=== PATIENT | female | born 1955 | race Caucasian/White ===

== ENCOUNTER → 2016-07-14 | Outpatient (CLI) | payer MEDICARE, OTHER | LOC: RAD 08:25 | PROVIDERS: ATTEND Internal Medicine | DX: M48.06 Spinal stenosis, lumbar region (principal) | CPT/HCPCS: 72148 ==

== ENCOUNTER 2016-07-25 08:40 | Emergency (ER) | payer MEDICARE ==
[2016-07-25] MEDS ORDERED: NITROGLYCERIN 0.4 MG/TAB 25 TAB/BOTTLE ONE (08:56)
[2016-07-25] MEDS ORDERED: ONDANSETRON HCL INJ/PF 4 MG/2 ML SDV IV ONE (09:00)
--- NOTE | 2016-07-25 09:01 | ER Document Report ---
ED Cardiac - General Stated Complaint: CHEST PRESSURE Mode of Arrival: Medic Information source: Patient Notes: Patient presents complaining of chest pain that started around 7 AM today while she was standing in the classroom. Patient states that she became clammy, dizzy , nauseated and had shortness of breath. Patient was given nitroglycerin per EMS and the chest pain improved some. Patient only took 1 nitroglycerin sublingually as she was concerned as she was not currently at the hospital. Patient does state she has a history of coronary artery disease and was advised that she needed a CABG procedure but she declined last year due to scheduling conflict with taking care of her grandchildren. TRAVEL OUTSIDE OF THE [place] IN LAST 30 DAYS: No - HPI Patient complains to provider of: Chest pain, Shortness of breath Was the onset of pain: Sudden Chest pain location: Substernal Quality of pain: Sharp Pain level currently: 2 Cardiac risk factors: Smoker, Dyslipidemia. denies: Hypertension Positive cardiac history: Yes Associated symptoms: Diaphoresis, Dizziness, Nausea/vomiting, Shortness of breath. 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 denies: Fever EENT: No symptoms reported Cardiovascular: Chest pain, Dyspnea, Dizziness Respiratory: Cough - Chronic cough, Short of breath Gastrointestinal: Nausea. denies: Vomiting Genitourinary: No symptoms reported Female Genitourinary: No symptoms reported Musculoskeletal: No symptoms reported. denies: Back pain Skin: No symptoms reported Hematologic/Lymphatic: No symptoms reported Neurological/Psychological: No symptoms reported Physical Exam - Vital signs Vitals: Temp Pulse Ox 98.7 F 98 07/25/16 08:45 07/25/16 08:45 - General General appearance: Appears well, Alert In distress: None - HEENT Head: Normocephalic, Atraumatic Eyes: Normal Conjunctiva: Normal Nasal: Normal Mouth/Lips: Normal Mucous membranes: Normal Neck: Normal, Supple. No: Lymphadenopathy - Respiratory Respiratory status: No respiratory distress Chest status: Nontender Breath sounds: Nonproductive cough Chest palpation: Normal. No: Tender - Cardiovascular Rhythm: Regular Heart sounds: S1 appreciated, S2 appreciated Murmur: No - Abdominal Inspection: Normal Distension: No distension Bowel sounds: Normal Tenderness: Tender - Epigastric tenderness to palpation Organomegaly: No organomegaly - Back Back: Normal, Nontender. No: CVA tenderness - Extremities General upper extremity: Normal inspection, Normal strength General lower extremity: Normal inspection, Normal strength - Neurological Neuro grossly intact: Yes Cognition: Normal Addie Coma Scale Eye Opening: Spontaneous Addie Coma Scale Verbal: Oriented Addie Coma Scale Motor: Obeys Commands [place] Coma Scale Total: 15 - Psychological Associated symptoms: Normal affect, Normal mood - Skin Skin Temperature: Warm Skin Moisture: Dry Skin Color: Normal Course - Re-evaluation Re-evalutation: 07/25/16 09:39 Patient reports that chest pain has completely resolved after nitroglycerin. 07/25/16 09:[address] 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 Does not recommend a glycerin at this time as her pain is currently resolved. 07/25/16 10:36 Call placed to [facility] transfer center 07/25/16 11:[address] Hudson at [facility] who agrees to accept patient to Dr. Jose L Kamara services, recommends cycling cardiac enzymes every 6 hours along with EKG, recommends notifying transfer center if patient has a return of her chest pain or symptoms worsen. 07/25/16 11:55 Dr Chavez to bedside for examination, patient's vital signs stable, patient stable for transfer. 07/25/16 12:38 Patient tearful, worried about who is going to take care of her grandchildren while she is in the hospital. Patient requesting medication to help with her nerves. Vital signs stable, patient does agree with plan for transfer at this time. Patient does have her friend who is a daycare provider who is willing to care for her grandchildren she is in the hospital. - Vital Signs Vital signs: Temp Pulse Resp BP Pulse Ox 97.7 F 14 177/66 H 97 07/25/16 12:40 07/25/16 12:31 07/25/16 12:31 07/25/16 12:31 - Laboratory Result Diagrams: 07/25/16 09:15 07/25/16 09:15 Laboratory results interpreted by me: 07/25/16 07/25/16 09:15 09:15 WBC 11.1 H Seg Neutrophils % 81.8 H Absolute Neutrophils 9.1 H Carbon Dioxide 21 L Glucose 153 H Creatine Kinase 247 H Labs- Entire Visit 07/25/16 07/25/16 07/25/16 09:15 09:15 09:15 WBC 11.1 H RBC 4.52 Hgb 13.8 Hct 41.3 MCV 92 MCH 30.5 MCHC 33.4 RDW 12.9 Plt Count 247 Seg Neutrophils % 81.8 H Lymphocytes % 13.3 Monocytes % 4.0 Eosinophils % 0.4 Basophils % 0.5 Absolute Neutrophils 9.1 H Absolute Lymphocytes 1.5 Absolute Monocytes 0.4 Absolute Eosinophils 0.0 Absolute Basophils 0.1 PT 13.1 INR 0.96 APTT 27.8 Sodium 141.4 Potassium 3.9 Chloride 105 Carbon Dioxide 21 L Anion Gap 15 BUN 12 Creatinine 0.64 Est GFR ( Amer) > 60 Est GFR (Non-Af Amer) > 60 Glucose 153 H Calcium 9.4 Magnesium 1.9 Total Bilirubin 0.6 Direct Bilirubin 0.0 AST 22 ALT 27 Alkaline Phosphatase 91 Creatine Kinase 247 H CK-MB (CK-2) Troponin I Total Protein 7.2 Albumin 4.2 Lipase 115.7 Urine Color Urine Appearance Urine pH Ur Specific [place] Urine Protein Urine Glucose (UA) Urine Ketones Urine Blood Urine Nitrite Urine Bilirubin Urine Urobilinogen Ur Leukocyte Esterase Urine WBC (Auto) Urine RBC (Auto) Urine Mucus (Auto) Urine Ascorbic Acid 07/25/16 07/25/16 09:15 10:20 WBC RBC Hgb Hct MCV MCH MCHC RDW Plt Count Seg Neutrophils % Lymphocytes % Monocytes % Eosinophils % Basophils % Absolute Neutrophils Absolute Lymphocytes Absolute Monocytes Absolute Eosinophils Absolute Basophils PT INR APTT Sodium Potassium Chloride Carbon Dioxide Anion Gap BUN Creatinine Est GFR ( Amer) Est GFR (Non-Af Amer) Glucose Calcium Magnesium Total Bilirubin Direct Bilirubin AST ALT Alkaline Phosphatase Creatine Kinase CK-MB (CK-2) 3.01 Troponin I < 0.012 Total Protein Albumin Lipase Urine Color YELLOW Urine Appearance CLEAR Urine pH 7.0 Ur Specific [place] 1.006 Urine Protein NEGATIVE Urine Glucose (UA) NEGATIVE Urine Ketones NEGATIVE Urine Blood NEGATIVE Urine Nitrite NEGATIVE Urine Bilirubin NEGATIVE Urine Urobilinogen NEGATIVE Ur Leukocyte Esterase NEGATIVE Urine WBC (Auto) 1 Urine RBC (Auto) 1 Urine Mucus (Auto) RARE Urine Ascorbic Acid NEGATIVE 07/25/16 14:44 - Diagnostic Test Radiology reviewed: Reports reviewed Discharge - Discharge Clinical Impression: Hx of coronary artery disease Chest pain Qualifiers: Chest pain type: unspecified Qualified Code(s): R07.9 - Chest pain, unspecified Condition: Stable Disposition: [facility] Referrals: OSBALDO HOBSON MD [Primary Care Provider] - Follow up as needed
[2016-07-25] MEDS ORDERED: NITROGLYCERIN 0.4 MG/TAB 25 TAB/BOTTLE SL PRN (09:02)
[2016-07-25 09:50] LABS: ABSOLUTE BASOPHILS # (AUTO) 0.1 10^3/uL (0.0-0.2); ABSOLUTE LYMPHOCYTES (AUTO) 1.5 10^3/uL (0.5-4.7); ABSOLUTE MONOCYTES (AUTO) 0.4 10^3/uL (0.1-1.4); ABSOLUTE NEUT (AUTO) 9.1 10^3/uL (1.7-8.2); BASOPHILS % (AUTO) 0.5 % (0-2); EOSINOPHILS % (AUTO) 0.4 % (0-6); HEMATOCRIT 41.3 % (36.0-47.0); HEMOGLOBIN 13.8 g/dL (12.0-15.5); HGB HCT DIFFERENCE 0.1; LYMPHOCYTES % (AUTO) 13.3 % (13-45); MEAN CORPUSCULAR HEMOGLOBIN 30.5 pg (27.0-33.4); MEAN CORPUSCULAR HGB CONC 33.4 g/dL (32.0-36.0); MEAN CORPUSCULAR VOLUME 92 fl (80-97); RED BLOOD COUNT 4.52 10^6/uL (3.72-5.28); RED CELL DISTRIBUTION WIDTH 12.9 % (11.5-14.0); SEGMENTED NEUTROPHILS % (AUTO) 81.8 % (42-78); WHITE BLOOD COUNT 11.1 10^3/uL (4.0-10.5)
[2016-07-25 09:58] LABS: PARTIAL THROMBOPLASTIN TIME 27.8 SEC (23.5-35.8); PROTHROMBIN TIME 13.1 SEC (11.4-15.4)
[2016-07-25 10:16] LABS: ALANINE AMINOTRANSFERASE 27 U/L (9-52); ALBUMIN 4.2 g/dL (3.5-5.0); ALKALINE PHOSPHATASE 91 U/L (38-126); ANION GAP 15 (5-19); ASPARTATE AMINO TRANSFERASE 22 U/L (14-36); BILIRUBIN,TOTAL 0.6 mg/dL (0.2-1.3); BLOOD UREA NITROGEN 12 mg/dL (7-20); CALCIUM 9.4 mg/dL (8.4-10.2); CARBON DIOXIDE 21 mmol/L (22-30); CHLORIDE 105 mmol/L (98-107); CREATINE KINASE 247 U/L (30-135); CREATININE RESULT 0.64 mg/dL (0.52-1.25); GLUCOSE 153 mg/dL (75-110); LIPASE 115.7 U/L (23-300); MAGNESIUM 1.9 mg/dL (1.6-2.3); POTASSIUM 3.9 mmol/L (3.6-5.0); SODIUM 141.4 mmol/L (137-145); TOTAL PROTEIN 7.2 g/dL (6.3-8.2)
[2016-07-25 10:26] LABS: CREATINE KINASE MB 3.01 ng/mL (<4.55)
[2016-07-25 10:27] LABS: TROPONIN I < 0.012 ng/mL
[2016-07-25 10:49] LABS: APPEARANCE,URINE CLEAR; BILIRUBIN,URINE NEGATIVE (NEGATIVE); GLUCOSE, URINE NEGATIVE (NEGATIVE); KETONES,URINE NEGATIVE (NEGATIVE); LEUKOCYTE ESTERASE,URINE NEGATIVE (NEGATIVE); NITRITE,URINE NEGATIVE (NEGATIVE); PROTEIN,URINE NEGATIVE (NEGATIVE); URINE SPECIFIC GRAVITY 1.006; UROBILINOGEN,URINE NEGATIVE mg/dL (<2.0)
[2016-07-25] MEDS ORDERED: LORAZEPAM INJ 2 MG/1 ML VIAL IV ONE (12:38)
[2016-07-25] MEDS ORDERED: LORAZEPAM INJ 2 MG/1 ML VIAL ONE (12:41)
--- NOTE | 2016-07-25 12:50 | EKG REPORT ---
SEVERITY:- ABNORMAL ECG - SINUS RHYTHM MULTIPLE ATRIAL PREMATURE COMPLEXES PROBABLE LEFT ATRIAL ABNORMALITY : Confirmed by: Chris Dang MD 25-Jul-2016 12:49:20
[2016-07-25 13:18] VITALS: BP 177/66
== END 2016-07-25 12:40 | disposition short-term general hospital (02) ==
LOC: ER 08:40
DX: R07.9 Chest pain, unspecified (principal); R42 Dizziness and giddiness; R11.0 Nausea; R06.02 Shortness of breath; F17.210 Nicotine dependence, cigarettes, uncomplicated; I25.10 Atherosclerotic heart disease of native coronary artery without angina pectoris
CPT/HCPCS: 93005; 99285; 96374; 96375; 36415; 82553; 82550; 83690; 83735; 85025; 85610; 85730; 80053; 81001; 84484; 71020; 93010; J2060; J2405

== ENCOUNTER 2017-03-29 12:38 | Inpatient (IN) | payer MEDICARE ==
[2017-03-29] MEDS ORDERED: NORMAL SALINE 1000 ML 1,000 ML IV ONE ×2 (12:53→16:23)
--- NOTE | 2017-03-29 12:53 | ER Document Report ---
ED Cardiac - General Stated Complaint: CHEST PAIN Time Seen by Provider: 03/29/17 12:46 Mode of Arrival: Medic Information source: Patient Notes: 61 yo non dm, htn, smoker, CAD, COPD, chronic back pain (surgery), radha. femoral stents for PVD, female c/o vomiting and diarrhea since thursday night at 1730 with epigastric and lower midline intermittent retrosternal chest pain that lasts 3-4 minutes each episode, (onset of chest pain after vomiting started) . Generalized muscle cramping. No fever. Some cough. Breathing fast since earlier today. She states she was sent to [facility] July [id number] from our emergency department due to chest pain (2 sets of negative troponin's). She thinks she might of had a heart attack but she does not remember if they did any intervention. She denies stent and cardiac catheterization. PCP: Dr. Hobson. TRAVEL OUTSIDE OF THE [place] IN LAST 30 DAYS: No - Related Data Allergies/Adverse Reactions: morphine Adverse Reaction (Severe, Verified 07/25/16 09:28) Hypotension oxycodone [From Percocet] Adverse Reaction (Intermediate, Verified 07/25/16 09: 28) Nausea acetaminophen [From Percocet] Adverse Reaction (Verified 07/25/16 09:27) Past Medical History - General Information source: Patient - Social History Smoking Status: Current Every Day Smoker Frequency of alcohol use: None Drug Abuse: None Lives with: Family Family History: Reviewed & Not Pertinent - Past Medical History Cardiac Medical History: Reports: Hx Coronary Artery Disease, Hx Hypercholesterolemia Pulmonary Medical History: Reports: Hx COPD Musculoskeltal Medical History: Reports Hx Arthritis Psychiatric Medical History: Reports: Hx Anxiety, Hx Depression Past Surgical History: Reports: Hx Orthopedic Surgery, Hx Vascular Surgery - B Femoral stents, Other - Stents in her right large 20 - Immunizations Hx Diphtheria, Pertussis, Tetanus Vaccination: Yes Review of Systems - Review of Systems Constitutional: See HPI EENT: No symptoms reported Cardiovascular: See HPI Respiratory: No symptoms reported Gastrointestinal: See HPI Genitourinary: No symptoms reported Female Genitourinary: No symptoms reported Musculoskeletal: No symptoms reported Skin: No symptoms reported Hematologic/Lymphatic: No symptoms reported Neurological/Psychological: No symptoms reported Physical Exam - Vital signs Vitals: Temp Pulse Resp BP Pulse Ox 98 F 105 H 17 117/78 99 03/29/17 12:40 03/29/17 12:40 03/29/17 12:40 03/29/17 12:40 03/29/17 12:40 Interpretation: Normal - General General appearance: Alert, Anxious Notes: anxious - HEENT Head: Normocephalic, Atraumatic Eyes: Normal Conjunctiva: Normal Pupils: PERRL Mucous membranes: Normal Pharynx: Normal Neck: Supple. No: Lymphadenopathy - Respiratory Respiratory status: No respiratory distress Chest status: Nontender Breath sounds: Normal Chest palpation: Normal - Cardiovascular Rhythm: Regular Heart sounds: Normal auscultation Murmur: No - Abdominal Inspection: Normal Distension: No distension Bowel sounds: Normal Tenderness: Tender - epigastrum Organomegaly: No organomegaly - Back Back: Normal, Nontender. No: CVA tenderness - Extremities General upper extremity: Normal inspection, Nontender, Normal color, Normal ROM , Normal temperature General lower extremity: Normal inspection, Nontender, Normal color, Normal ROM , Normal temperature, Normal weight bearing. No: Js's sign - Neurological Neuro grossly intact: Yes Cognition: Normal Orientation: AAOx4 [place] Coma Scale Eye Opening: Spontaneous Addie Coma Scale Verbal: Oriented [place] Coma Scale Motor: Obeys Commands Addie Coma Scale Total: 15 Speech: Normal Motor strength normal: LUE, RUE, LLE, RLE Sensory: Normal - Psychological Associated symptoms: Normal affect, Normal mood - Skin Skin Temperature: Warm Skin Moisture: Dry Skin Color: Normal Skin irregularity: negative: Rash Course - Re-evaluation Re-evalutation: 03/29/17 14:35 Chemistry hemolyzed he had to redraw it. She was not given aspirin so I have ordered that. She still has some nausea so have ordered 8 mg Zofran ODT. Heart rate is now 90. Her original EKG showed atrial tachycardia rate 106 with inverted P wave in 2 3 aVF which was not there and a previous EKG July 2016. I will have him redo an EKG at this time. AP chest x-ray is negative. 03/29/17 14:41 Creatinine is 1.81, BUN is 37. She has never had elevated BUN or creatinine that she is aware of. 03/29/17 16:[address] Devries who recommends admitting the patient for chest pain rule out rehydration since she has acute renal insufficiency. I called Dr. Cordoba who agrees to admit the patient to telemetry to Dr. Hobson's service . - Vital Signs Vital signs: Temp Pulse Resp BP Pulse Ox 98 F 105 H 17 143/46 H 99 03/29/17 12:40 03/29/17 12:40 03/29/17 16:01 03/29/17 16:01 03/29/17 16:01 - Laboratory Result Diagrams: 03/29/17 13:10 03/29/17 13:55 Laboratory results interpreted by me: 03/29/17 03/29/17 13:10 13:55 WBC 18.6 H Hgb 16.1 H Seg Neutrophils % 85.5 H Lymphocytes % 9.1 L Absolute Neutrophils 15.9 H BUN 37 H Creatinine 1.81 H Est GFR ( Amer) 34 L Est GFR (Non-Af Amer) 28 L Glucose 118 H Direct Bilirubin 0.5 H Discharge - Discharge Clinical Impression: Vomiting and diarrhea, epigastric abdominal pain, chest pain, Acute renal insufficiency, Dehydration, hypertension COPD (chronic obstructive pulmonary disease) Qualifiers: COPD type: unspecified COPD Qualified Code(s): J44.9 - Chronic obstructive pulmonary disease, unspecified Condition: Good Disposition: ADMITTED OBSERVATION Admitting Provider: Marty Unit Admitted: Telemetry Referrals: OSBALDO HOBSON MD [Primary Care Provider] - Follow up as needed
--- NOTE | 2017-03-29 13:37 | RADIOLOGY REPORT (SQ) ---
EXAM DESCRIPTION: CHEST SINGLE VIEW COMPLETED DATE/TIME: 03/29/2017 1:07 pm REASON FOR STUDY: t1 cp COMPARISON: 07/25/2016 EXAM PARAMETERS: NUMBER OF VIEWS: One view. TECHNIQUE: Single frontal radiographic view of the chest acquired. RADIATION DOSE: NA LIMITATIONS: None. FINDINGS: LUNGS AND PLEURA: No opacities, masses or pneumothorax. No pleural effusion. MEDIASTINUM AND HILAR STRUCTURES: No masses. Contour normal. HEART AND VASCULAR STRUCTURES: Heart normal in size. Normal vasculature. BONES: No acute findings. HARDWARE: None in the chest. OTHER: No other significant finding. IMPRESSION: NO ACUTE RADIOGRAPHIC FINDING IN THE CHEST. TECHNICAL DOCUMENTATION: JOB ID: [id number] [employer]- All Rights Reserved
[2017-03-29 13:44] LABS: ABSOLUTE BASOPHILS # (AUTO) 0.1 10^3/uL (0.0-0.2); ABSOLUTE LYMPHOCYTES (AUTO) 1.7 10^3/uL (0.5-4.7); ABSOLUTE MONOCYTES (AUTO) 0.9 10^3/uL (0.1-1.4); ABSOLUTE NEUT (AUTO) 15.9 10^3/uL (1.7-8.2); BASOPHILS % (AUTO) 0.3 % (0-2); EOSINOPHILS % (AUTO) 0.1 % (0-6); HEMATOCRIT 45.8 % (36.0-47.0); HEMOGLOBIN 16.1 g/dL (12.0-15.5); HGB HCT DIFFERENCE 2.5; LYMPHOCYTES % (AUTO) 9.1 % (13-45); MEAN CORPUSCULAR HEMOGLOBIN 31.2 pg (27.0-33.4); MEAN CORPUSCULAR HGB CONC 35.1 g/dL (32.0-36.0); MEAN CORPUSCULAR VOLUME 89 fl (80-97); RED BLOOD COUNT 5.15 10^6/uL (3.72-5.28); RED CELL DISTRIBUTION WIDTH 12.6 % (11.5-14.0); SEGMENTED NEUTROPHILS % (AUTO) 85.5 % (42-78); WHITE BLOOD COUNT 18.6 10^3/uL (4.0-10.5)
[2017-03-29] MEDS ORDERED: NORMAL SALINE 1000 ML 500 ML IV ONE (14:32)
[2017-03-29 14:33] LABS: ALANINE AMINOTRANSFERASE 23 U/L (9-52); ALBUMIN 4.3 g/dL (3.5-5.0); ALKALINE PHOSPHATASE 114 U/L (38-126); ANION GAP 16 (5-19); ASPARTATE AMINO TRANSFERASE 24 U/L (14-36); BILIRUBIN,DIRECT 0.5 mg/dL (0.0-0.4); BILIRUBIN,TOTAL 0.8 mg/dL (0.2-1.3); BLOOD UREA NITROGEN 37 mg/dL (7-20); CALCIUM 9.2 mg/dL (8.4-10.2); CARBON DIOXIDE 23 mmol/L (22-30); CHLORIDE 99 mmol/L (98-107); CREATINE KINASE 132 U/L (30-135); CREATININE RESULT 1.81 mg/dL (0.52-1.25); GLUCOSE 118 mg/dL (75-110); LIPASE 133.7 U/L (23-300); MAGNESIUM 2.1 mg/dL (1.6-2.3); POTASSIUM 4.4 mmol/L (3.6-5.0); SODIUM 137.5 mmol/L (137-145); TOTAL PROTEIN 7.3 g/dL (6.3-8.2)
[2017-03-29] MEDS ORDERED: ASPIRIN 81 MG TABLET, CHEWABLE PO ONE (14:33)
[2017-03-29] MEDS ORDERED: ONDANSETRON 4 MG TAB.RAPDIS PO ONE (14:33)
[2017-03-29 14:51] LABS: CREATINE KINASE MB 2.28 ng/mL (<4.55)
--- NOTE | 2017-03-29 14:59 | EKG REPORT ---
SEVERITY:- ABNORMAL ECG - ECTOPIC ATRIAL TACHYCARDIA : Confirmed by: Gail Singh 29-Mar-2017 14:58:40
[2017-03-29 15:02] LABS: TROPONIN I 0.046 ng/mL
[2017-03-29] MEDS ORDERED: MAG HYDROX/AL HYDROX/SIMETH SUSP 30 ML UDCUP PO ONE (16:23)
[2017-03-29] MEDS ORDERED: LIDOCAINE 2% VISCOUS SOLN 20 ML UDCUP PO ONE (16:23)
[2017-03-29] MEDS ORDERED: LANSOPRAZOLE 30 MG TAB.RAP.DR PO ONE (16:23)
[2017-03-29] MEDS ORDERED: INFLUENZA ADLT QUAD (36MOS+) 2017-18 VAC 0.5 ML SYR IM PRN (18:28)
[2017-03-29 19:20] LABS: AMORPHOUS SEDIMENT,URINE TRACE /HPF; APPEARANCE,URINE CLOUDY; BILIRUBIN,URINE NEGATIVE (NEGATIVE); GLUCOSE, URINE NEGATIVE (NEGATIVE); KETONES,URINE TRACE mg/dL (NEGATIVE); LEUKOCYTE ESTERASE,URINE TRACE (NEGATIVE); NITRITE,URINE NEGATIVE (NEGATIVE); PROTEIN,URINE 100 mg/dL (NEGATIVE)
[2017-03-29 19:24] LABS: URINE BARBITURATES SCREEN NEGATIVE; URINE METHADONE SCREEN NEGATIVE; URINE PHENCYCLIDINE SCREEN NEGATIVE
[2017-03-29 19:29] LABS: URINE OPIATES LOW UNCONFIRMED POSITIVE
[2017-03-29] MEDS ORDERED: NORMAL SALINE 1000 ML 1,000 ML IV PRN (19:29)
--- NOTE | 2017-03-29 19:57 | EKG REPORT ---
SEVERITY:- ABNORMAL ECG - SINUS TACHYCARDIA LOW VOLTAGE IN FRONTAL LEADS CONSIDER ANTEROSEPTAL INFARCT NONSPECIFIC T ABNORMALITIES, LATERAL LEADS BORDERLINE PROLONGED QT INTERVAL APCs : Confirmed by: Gail Singh 29-Mar-2017 19:55:35
[2017-03-29 20:47] LABS: CREATINE KINASE MB 2.59 ng/mL (<4.55)
[2017-03-29 20:55] LABS: TROPONIN I 0.059 ng/mL
[2017-03-29] MEDS: CIPROFLOXACIN HCL 500 MG TABLET PO SCH (21:17)
[2017-03-29] MEDS: BUPROPION HCL 75 MG TABLET PO SCH (21:17)
[2017-03-29] MEDS: BUSPIRONE HCL 10 MG TABLET PO SCH (21:18)
[2017-03-29] MEDS: TRAZODONE HCL 50 MG TABLET PO SCH (21:18)
[2017-03-29] MEDS: LISINOPRIL 10 MG TABLET PO SCH (21:18)
[2017-03-29] MEDS: GABAPENTIN 400 MG CAPSULE PO SCH (21:18)
[2017-03-29] MEDS: HYDROCHLOROTHIAZIDE 12.5 MG CAPSULE PO SCH (21:20)
[2017-03-30 03:02] LABS: CREATINE KINASE MB 2.84 ng/mL (<4.55); TROPONIN I 0.039 ng/mL
[2017-03-30] MEDS: GABAPENTIN 400 MG CAPSULE PO SCH ×3 (05:35→21:34)
[2017-03-30 09:41] LABS: ABSOLUTE LYMPHOCYTES (AUTO) 2.8 10^3/uL (0.5-4.7); ABSOLUTE MONOCYTES (AUTO) 0.8 10^3/uL (0.1-1.4); ABSOLUTE NEUT (AUTO) 6.7 10^3/uL (1.7-8.2); BASOPHILS % (AUTO) 0.4 % (0-2); EOSINOPHILS % (AUTO) 0.3 % (0-6); HEMATOCRIT 37.8 % (36.0-47.0); HGB HCT DIFFERENCE 2.1; LYMPHOCYTES % (AUTO) 27.3 % (13-45); MEAN CORPUSCULAR HEMOGLOBIN 31.6 pg (27.0-33.4); MEAN CORPUSCULAR HGB CONC 35.3 g/dL (32.0-36.0); MEAN CORPUSCULAR VOLUME 89 fl (80-97); MONOCYTES % (AUTO) 7.6 % (3-13); RED BLOOD COUNT 4.22 10^6/uL (3.72-5.28); RED CELL DISTRIBUTION WIDTH 12.6 % (11.5-14.0); SEGMENTED NEUTROPHILS % (AUTO) 64.4 % (42-78); WHITE BLOOD COUNT 10.3 10^3/uL (4.0-10.5)
[2017-03-30 09:43] LABS: HEMOGLOBIN 13.3 g/dL (12.0-15.5)
[2017-03-30] MEDS: HYDROCHLOROTHIAZIDE 12.5 MG CAPSULE PO SCH ×2 (09:47→21:35)
[2017-03-30] MEDS: LISINOPRIL 10 MG TABLET PO SCH ×2 (09:48→21:35)
[2017-03-30] MEDS: BUPROPION HCL 75 MG TABLET PO SCH ×2 (09:51→21:34)
[2017-03-30] MEDS: FLUTICASONE NASAL SPRAY 50 MCG/SPRY 120 SPRAY/16 GM NASL SCH (09:51)
[2017-03-30] MEDS: MELOXICAM 7.5 MG TABLET PO SCH (09:51)
[2017-03-30] MEDS: BUSPIRONE HCL 10 MG TABLET PO SCH ×2 (09:51→21:34)
[2017-03-30] MEDS: CIPROFLOXACIN HCL 500 MG TABLET PO SCH ×2 (09:51→21:35)
[2017-03-30] MEDS ORDERED: LANSOPRAZOLE 30 MG TAB.RAP.DR PO SCH (10:00)
[2017-03-30] MEDS ORDERED: (PENDING PHARMACY ID) (Lisinopril/Hydrochlorothiazide [Lisinopril-Hctz 20-12.5 Mg Tab] 1 E PO SCH (10:00)
[2017-03-30] MEDS ORDERED: (PENDING PHARMACY ID) (Gabapentin [Gabapentin] 800 MG) PO SCH (10:00)
[2017-03-30] MEDS ORDERED: [UNRECOGNIZED DRUG - REMARK] NASL SCH (10:00)
[2017-03-30] MEDS ORDERED: BUSPIRONE HCL PO SCH (10:00)
[2017-03-30 10:01] LABS: ANION GAP 15 (5-19); BLOOD UREA NITROGEN 27 mg/dL (7-20); CALCIUM 8.8 mg/dL (8.4-10.2); CARBON DIOXIDE 20 mmol/L (22-30); CHLORIDE 104 mmol/L (98-107); CREATINE KINASE 846 U/L (30-135); CREATININE RESULT 1.05 mg/dL (0.52-1.25); GLUCOSE 119 mg/dL (75-110); POTASSIUM 3.7 mmol/L (3.6-5.0); SODIUM 139.4 mmol/L (137-145)
[2017-03-30 10:18] LABS: CREATINE KINASE MB 2.44 ng/mL (<4.55); TROPONIN I 0.017 ng/mL
[2017-03-30] MEDS ORDERED: CLOPIDOGREL BISULFATE 75 MG TABLET PO ONE (11:00)
[2017-03-30] MEDS ORDERED: INFLUENZA ADLT QUAD (36MOS+) 2017-18 VAC 0.5 ML SYR IM PRN (11:00)
--- NOTE | 2017-03-30 20:48 | PDOC H&P ---
History of Present Illness Admission Date/PCP: 03/29/17 18:37 OSBALDO HOBSON MD History of Present Illness: MYRTLE THAPA is a 61 year old female, She has a history of chronic obstructive pulmonary disease, tobacco abuse, she came to the emergency room for evaluation of abdominal pain, diarrhea, vomiting also chest pain. She continued to smoke cigarettes, she was seen on the floor, she has abdominal distention associated with abdominal pain. She denies passage of black tarry stool, there is no hematochezia, there is no vomiting blood. A CAT scan of the abdomen and pelvis with IV contrast was done for evaluation of the abdominal distention, it showed fluid distended loops of small bowel with transition point deep within the pelvis with collapsed loops distally compatible with obstruction. The CAT scan suggest mechanical obstruction probably due to adhesions, nasogastric tube be inserted and consultation from surgery to be ordered Past Medical History Cardiac Medical History: Reports: Coronary Artery Disease, Hyperlipidema Pulmonary Medical History: Reports: Chronic Obstructive Pulmonary Disease (COPD) Musculoskeltal Medical History: Reports: Arthritis Psychiatric Medical History: Reports: Depression Past Surgical History Past Surgical History: Reports: Orthopedic Surgery, Vascular Surgery - B Femoral stents, Other - Stents in her right large 20 Social History Lives with: Family Smoking Status: Current Every Day Smoker Cigarettes Packs Per Day: 1 Frequency of Alcohol Use: None Hx Recreational Drug Use: No Drugs: None Hx Prescription Drug Abuse: No - Advance Directive Resuscitation Status: Full Code Family History Family History: Reviewed & Not Pertinent Parental Family History Reviewed: Yes Children Family History Reviewed: Yes Sibling(s) Family History Reviewed.: Yes Medication/Allergy Home Medications: Acetaminophen with Codeine [Acetaminophen-Cod #4 Tablet] 1 tab PO Q8H PRN Bupropion HCl [Bupropion HCl Sr] 150 mg PO BID 03/29/17 Buspirone HCl [Buspar 30 mg Tablet] 1 tab PO BID 03/29/17 Ciprofloxacin HCl [Cipro 500 mg Tablet] 500 mg PO BID 03/29/17 Fluticasone Propionate [Flonase Allergy Relief] 2 sprays NASL DAILY 03/29/17 Gabapentin 800 mg PO TID 03/29/17 Lisinopril/Hydrochlorothiazide [Lisinopril-Hctz 20-12.5 mg Tab] 1 each PO BID Meloxicam 7.5 mg PO DAILY 03/29/17 Omeprazole 20 mg PO DAILY 03/29/17 Trazodone HCl 100 mg PO QHS 03/29/17 Allergies/Adverse Reactions: morphine Adverse Reaction (Severe, Verified 07/25/16 09:28) Hypotension oxycodone [From Percocet] Adverse Reaction (Intermediate, Verified 07/25/16 09: 28) Nausea Review of Systems Constitutional: PRESENT: anorexia Eyes: ABSENT: visual disturbances Ears: ABSENT: hearing changes Cardiovascular: ABSENT: chest pain, dyspnea on exertion, edema, orthropnea, palpitations Respiratory: ABSENT: cough, hemoptysis Gastrointestinal: PRESENT: abdominal pain, diarrhea, vomiting Genitourinary: ABSENT: dysuria, hematuria Musculoskeletal: ABSENT: joint swelling Integumentary: ABSENT: rash, wounds Neurological: ABSENT: abnormal gait, abnormal speech, confusion, dizziness, focal weakness, syncope Psychiatric: ABSENT: anxiety, depression, homidical ideation, suicidal ideation Endocrine: ABSENT: cold intolerance, heat intolerance, menstrual abnormalities, polydipsia, polyuria Hematologic/Lymphatic: ABSENT: easy bleeding, easy bruising, lymphadenopathy Physical Exam Vital Signs: Temp Pulse Resp BP Pulse Ox 98.1 F 64 20 133/47 H 100 03/30/17 15:33 03/30/17 15:33 03/30/17 15:33 03/30/17 15:33 03/30/17 15:33 Intake & Output 03/29/17 03/30/17 03/31/17 06:59 06:59 06:59 Intake Total 1218 2580 Balance 1218 2580 Weight 75.3 kg General appearance: PRESENT: no acute distress, well-developed, well-nourished Head exam: PRESENT: atraumatic, normocephalic Eye exam: PRESENT: conjunctiva pink, EOMI, PERRLA Ear exam: PRESENT: normal external ear exam Mouth exam: PRESENT: moist, tongue midline Neck exam: PRESENT: full ROM Respiratory exam: PRESENT: clear to auscultation radha Cardiovascular exam: PRESENT: RRR, +S1, +S2 Pulses: PRESENT: normal dorsalis pedis pul, +2 pedal pulses bilateral Vascular exam: PRESENT: normal capillary refill GI/Abdominal exam: PRESENT: distended, normal bowel sounds, soft Rectal exam: PRESENT: deferred Neurological exam: PRESENT: alert, awake, oriented to person, oriented to place , oriented to time, oriented to situation, CN II-XII grossly intact. ABSENT: motor sensory deficit Psychiatric exam: PRESENT: appropriate affect, normal mood Skin exam: PRESENT: dry, intact, warm Results Laboratory Results: 03/30/17 09:26 03/30/17 09:26 03/30/17 03/30/17 09:26 09:26 WBC 10.3 RBC 4.22 Hgb 13.3 D Hct 37.8 MCV 89 MCH 31.6 MCHC 35.3 RDW 12.6 Plt Count 298 Seg Neutrophils % 64.4 Lymphocytes % 27.3 Monocytes % 7.6 Eosinophils % 0.3 Basophils % 0.4 Absolute Neutrophils 6.7 Absolute Lymphocytes 2.8 Absolute Monocytes 0.8 Absolute Eosinophils 0.0 Absolute Basophils 0.0 Sodium 139.4 Potassium 3.7 Chloride 104 Carbon Dioxide 20 L Anion Gap 15 BUN 27 H Creatinine 1.05 Est GFR ( Amer) > 60 Est GFR (Non-Af Amer) 53 L Glucose 119 H Calcium 8.8 03/29/17 03/29/17 03/30/17 20:00 20:00 02:00 Creatine Kinase 196 H 441 H CK-MB (CK-2) 2.59 Troponin I 0.059 03/30/17 03/30/17 03/30/17 02:00 09:26 09:26 Creatine Kinase 846 H CK-MB (CK-2) 2.84 2.44 Troponin I 0.039 0.017 Impressions: Chest X-Ray 03/29/17 12:40 IMPRESSION: NO ACUTE RADIOGRAPHIC FINDING IN THE CHEST. Assessment & Plan - Diagnosis (1) Small bowel obstruction due to adhesions Is this a current diagnosis for this admission?: Yes Plan: Patient admitted for evaluation of small bowel obstruction, CT scan consistent with mechanical obstruction, nasogastric tube to be inserted, keep n.p.o. (2) Chronic obstructive pulmonary disease Qualifiers: COPD type: unspecified COPD Qualified Code(s): J44.9 - Chronic obstructive pulmonary disease, unspecified Is this a current diagnosis for this admission?: Yes (3) Hypertension Qualifiers: Hypertension type: essential hypertension Qualified Code(s): I10 - Essential (primary) hypertension
--- NOTE | 2017-03-30 21:28 | RADIOLOGY REPORT (SQ) ---
EXAM DESCRIPTION: CT ABD/PELVIS WITH IV ONLY COMPLETED DATE/TIME: 03/30/2017 9:13 pm REASON FOR STUDY: abdominal distension/pain R10.84 GENERALIZED ABDOMINAL PAIN COMPARISON: None. TECHNIQUE: CT scan of the abdomen and pelvis performed using helical scanning technique with dynamic intravenous contrast injection. No oral contrast. Images reviewed with lung, soft tissue, and bone windows. Reconstructed coronal and sagittal MPR images reviewed. Delayed images for evaluation of the urinary system also acquired. All images stored on PACS. All CT scanners at this facility use dose modulation, iterative reconstruction, and/or weight based d osing when appropriate to reduce radiation dose to as low as reasonably achievable (ALARA). [facility]: Dose Right [facility]: CareDose [facility]: Dose Right [facility]: Teradose 4D [facility]: Hantele CONTRAST TYPE AND DOSE: contrast/concentration: Isovue 370.00 mg/ml; Total Contrast Delivered: 81.0 ml; Total Saline Delivered: 42.0 ml RENAL FUNCTION: Creatinine measures 1.05 RADIATION DOSE: Up-to-date CT equipment and radiation dose reduction techniques were employed. CTDIv ol: 14.5 - 18.4 mGy. DLP: 1729 mGy-cm.. LIMITATIONS: None. FINDINGS: LOWER CHEST: No significant findings. No nodules or infiltrates. LIVER: Normal size. No masses. No dilated ducts. SPLEEN: Normal size. No focal lesions. PANCREAS: No masses. No significant calcifications. No adjacent inflammation or peripancreatic fluid collections. Pancreatic duct not dilated. GALLBLADDER: Surgically absent. ADRENAL GLANDS: No significant masses or asymmetry. RIGHT KIDNEY AND URETER: No solid masses. No significant calcifications. No hydronephrosis or hyd roureter. LEFT KIDNEY AND URETER: No solid masses. No significant calcifications. No hydronephrosis or hydr oureter. AORTA AND VESSELS: No aneurysm. No dissection. Renal arteries, SMA, celiac without stenosis. RETROPERITONEUM: No retroperitoneal adenopathy, hemorrhage or masses. BOWEL AND PERITONEAL CAVITY: Fluid distended loops of small bowel measuring up to 3.3 cm with transit ion point deep within the pelvis with collapsed loops distally compatible with obstruction. No pneum atosis or free air. APPENDIX: Not visualized. PELVIS: No mass. No free fluid. Normal bladder. ABDOMINAL WALL: No masses. No hernias. BONES: Status post posterior interbody fusion of the L4-L5 levels. No hardware complication. No fra cture or suspicious osseous lesion. OTHER: No other significant finding. IMPRESSION: CT FINDINGS COMPATIBLE WITH DISTAL SMALL BOWEL OBSTRUCTION WITH TRANSITION POINT SOMEWHA T DEEP IN THE PELVIS PRESUMABLY SECONDARY TO ADHESIONS GIVEN PRIOR SURGERIES. NO PNEUMATOSIS OR FREE AIR. ADDITIONAL CHRONIC CHANGES ABOVE. TECHNICAL DOCUMENTATION: JOB ID: [id number] Quality ID # [id number]: Final reports with documentation of one or more dose reduction techniques (e.g., Au tomated exposure control, adjustment of the mA and/or kV according to patient size, use of iterative reconstruction technique) 2010 [email or web address]- All Rights Reserved
[2017-03-30] MEDS: TRAZODONE HCL 50 MG TABLET PO SCH (21:35)
[2017-03-31] MEDS: ONDANSETRON HCL INJ/PF 4 MG/2 ML SDV IV PRN ×2 (02:42→21:16)
[2017-03-31] MEDS ORDERED: PHARMACY COMMUNICATION ORDER MC NR (02:45)
[2017-03-31] MEDS ORDERED: DEXTROSE 40% GEL 15 GM TUBE PO PRN ×2 (02:48)
[2017-03-31] MEDS ORDERED: GLUCAGON,HUMAN RECOMB 1 MG INJ SUBCUT PRN (02:48)
[2017-03-31] MEDS ORDERED: DEXTROSE 50%-WATER 25 GM/50 ML DISP.SYRIN IV PRN ×2 (02:48)
[2017-03-31] MEDS: GABAPENTIN 400 MG CAPSULE PO SCH ×2 (05:21→13:30)
--- NOTE | 2017-03-31 08:33 | Physician Advisory Note ---
Physician Advisor ProgressNote .: Pursuant to the plan for [facility], I have reviewed the medical record for this patient. Physician Advisor Statement: Please consider documenting, if you agree: 1. Impression & Plan in H&P, including clinical reasons the pt still needed to stay in hospital 11/6 PM (had already stayed 1st MN 03/29 in ED). - Ex: "Pt with continued abd pain & distention", "unresolved SBO", " worsening trop I's", "evidence of continued volume depletion with associated acute metabolic acidosis", ... - Each day needs medical necessity documented for that night in hospital. 2. "Chest pain, likely due to " ["unstable angina w/documented spasm"? "acute ischemic heart dz"? referred pain from SBO? ...] 3. "distal small bowel obstruction" 4. "ARF, suspect due to intravascular volume depletion, now resolved" STatus: [facility] pt, has stayed 2 medically necessary MNs in hospital with ongoing need for IVF & SBO tx, monitoring lytes, .... Apprpriate to change to Inpatient status. Thanks! CK
[2017-03-31] MEDS ORDERED: LIDOCAINE 2% JELLY 5 ML TUBE ONE (09:08)
[2017-03-31] MEDS ORDERED: LIDOCAINE 0.5% INJ-PF (5 MG/ML) 50 ML SDV ONE (09:08)
--- NOTE | 2017-03-31 09:56 | PDOC CONSULTATION ---
Consultation Consult Date: 03/31/17 History of Present Illness Admission Date/PCP: 03/29/17 18:37 OSBALDO HOBSON MD History of Present Illness: This a 61-year-old female admitted to the hospitalist medicine service with a four-day history of nausea vomiting and abdominal pain. She was admitted with a small bowel obstruction. CT scan done yesterday confirmed findings of dilated small bowel with a transition point in the distal small bowel. There is no pneumatosis. There is no free air. Small bowel loops were 3.5-4 cm in diameter. She reports to me that she threw up this morning. She also reports that she has had loose stools over the past several days. She reports 3 loose stools yesterday. She says she passed a small amount of flatus today. The nurses attempted to place an NG tube but could not get an NG tube in place. She has a prior history of hysterectomy in 1998. She has had a prior laparoscopic cholecystectomy but no other abdominal surgeries. She has not had a prior small bowel obstruction Past Medical History Cardiac Medical History: Reports: Coronary Artery Disease, Hyperlipidema Pulmonary Medical History: Reports: Chronic Obstructive Pulmonary Disease (COPD) Musculoskeltal Medical History: Reports: Arthritis Psychiatric Medical History: Reports: Depression Past Surgical History Past Surgical History: Reports: Orthopedic Surgery, Vascular Surgery - B Femoral stents, Other - Stents in her right large 20 Social History Lives with: Family Smoking Status: Current Every Day Smoker Cigarettes Packs Per Day: 1 Frequency of Alcohol Use: None Hx Recreational Drug Use: No Drugs: None Hx Prescription Drug Abuse: No - Advance Directive Resuscitation Status: Full Code Family History Family History: Reviewed & Not Pertinent Parental Family History Reviewed: Yes Children Family History Reviewed: Yes Sibling(s) Family History Reviewed.: Yes Medication/Allergy Home Medications: Acetaminophen with Codeine [Acetaminophen-Cod #4 Tablet] 1 tab PO Q8H PRN Bupropion HCl [Bupropion HCl Sr] 150 mg PO BID 03/29/17 Buspirone HCl [Buspar 30 mg Tablet] 1 tab PO BID 03/29/17 Ciprofloxacin HCl [Cipro 500 mg Tablet] 500 mg PO BID 03/29/17 Fluticasone Propionate [Flonase Allergy Relief] 2 sprays NASL DAILY 03/29/17 Gabapentin 800 mg PO TID 03/29/17 Lisinopril/Hydrochlorothiazide [Lisinopril-Hctz 20-12.5 mg Tab] 1 each PO BID Meloxicam 7.5 mg PO DAILY 03/29/17 Omeprazole 20 mg PO DAILY 03/29/17 Trazodone HCl 100 mg PO QHS 03/29/17 Allergies/Adverse Reactions: morphine Adverse Reaction (Severe, Verified 07/25/16 09:28) Hypotension oxycodone [From Percocet] Adverse Reaction (Intermediate, Verified 07/25/16 09: 28) Nausea Physical Exam Vital Signs: Temp Pulse Resp BP Pulse Ox 98.3 F 79 16 139/52 H 100 03/31/17 03:52 03/31/17 03:52 03/31/17 03:52 03/31/17 03:52 03/31/17 03:52 Intake & Output 03/30/17 03/31/17 04/01/17 06:59 06:59 06:59 Intake Total 1218 4280 Balance 1218 4280 Weight 75.3 kg 77.4 kg General appearance: PRESENT: no acute distress Eye exam: PRESENT: EOMI, PERRLA Ear exam: PRESENT: normal external ear exam Mouth exam: PRESENT: dry mucosa Respiratory exam: PRESENT: clear to auscultation radha Cardiovascular exam: PRESENT: RRR Vascular exam: ABSENT: normal capillary refill, pallor, other GI/Abdominal exam: PRESENT: distended, soft, other - Mild diffuse tenderness without localizing signs Rectal exam: PRESENT: deferred Extremities exam: PRESENT: full ROM Psychiatric exam: PRESENT: normal mood Results Laboratory Results: 03/30/17 09:26 03/30/17 09:26 03/30/17 03/30/17 09:26 09:26 WBC 10.3 RBC 4.22 Hgb 13.3 D Hct 37.8 MCV 89 MCH 31.6 MCHC 35.3 RDW 12.6 Plt Count 298 Seg Neutrophils % 64.4 Lymphocytes % 27.3 Monocytes % 7.6 Eosinophils % 0.3 Basophils % 0.4 Absolute Neutrophils 6.7 Absolute Lymphocytes 2.8 Absolute Monocytes 0.8 Absolute Eosinophils 0.0 Absolute Basophils 0.0 Sodium 139.4 Potassium 3.7 Chloride 104 Carbon Dioxide 20 L Anion Gap 15 BUN 27 H Creatinine 1.05 Est GFR ( Amer) > 60 Est GFR (Non-Af Amer) 53 L Glucose 119 H Calcium 8.8 03/29/17 03/29/17 03/30/17 20:00 20:00 02:00 Creatine Kinase 196 H 441 H CK-MB (CK-2) 2.59 Troponin I 0.059 03/30/17 03/30/17 03/30/17 02:00 09:26 09:26 Creatine Kinase 846 H CK-MB (CK-2) 2.84 2.44 Troponin I 0.039 0.017 Impressions: Chest X-Ray 03/29/17 12:40 IMPRESSION: NO ACUTE RADIOGRAPHIC FINDING IN THE CHEST. Abdomen/Pelvis CT 03/30/17 00:00 IMPRESSION: CT FINDINGS COMPATIBLE WITH DISTAL SMALL BOWEL OBSTRUCTION WITH TRANSITION POINT SOMEWHAT DEEP IN THE PELVIS PRESUMABLY SECONDARY TO ADHESIONS GIVEN PRIOR SURGERIES. NO PNEUMATOSIS OR FREE AIR. ADDITIONAL CHRONIC CHANGES ABOVE. Assessment & Plan - Diagnosis (1) Small bowel obstruction Is this a current diagnosis for this admission?: Yes Plan: I have placed an NG tube at the bedside. This resulted in rapid return of 400- 500 cc of thick fluid from the stomach. I would recommend continuation of NG tube decompression. Repeat laboratory studies and KUB in the morning. Continue with IV fluids we will follow with the hospitalist medicine service. - Time Time Spent: 50 to 70 Minutes
[2017-03-31] MEDS ORDERED: HYDROCHLOROTHIAZIDE 12.5 MG CAPSULE NG SCH (10:00)
[2017-03-31] MEDS ORDERED: BUSPIRONE HCL 10 MG TABLET NG SCH (10:00)
[2017-03-31] MEDS ORDERED: BUPROPION HCL 75 MG TABLET NG SCH (10:00)
[2017-03-31] MEDS ORDERED: CLOPIDOGREL BISULFATE 75 MG TABLET PO SCH (10:00)
[2017-03-31] MEDS ORDERED: CIPROFLOXACIN HCL 500 MG TABLET NG SCH (10:00)
[2017-03-31] MEDS ORDERED: LISINOPRIL 10 MG TABLET NG SCH (10:00)
[2017-03-31] MEDS ORDERED: LANSOPRAZOLE 30 MG TAB.RAP.DR NG SCH (10:00)
--- NOTE | 2017-03-31 13:11 | RADIOLOGY REPORT (SQ) ---
EXAM DESCRIPTION: KUB/ABDOMEN (SINGLE VIEW) COMPLETED DATE/TIME: 03/31/2017 11:16 am REASON FOR STUDY: Check Placement of NG Tube R10.84 GENERALIZED ABDOMINAL PAIN COMPARISON: CT abdomen pelvis 03/30/2017 NUMBER OF VIEWS: One view. TECHNIQUE: Upright portable film of the abdomen for nasogastric tube placement LIMITATIONS: Pelvis cropped from the field of view FINDINGS: Minimal bibasilar atelectasis. Persistent air-fluid levels in colon small bowel and stomach. There is a nasogastric tube with the tip in the stomach and side port at the GE junction. Pelvis cropped from the field of view IMPRESSION: Nasogastric tube tip and side port in the stomach. TECHNICAL DOCUMENTATION: JOB ID: [id number] [email or web address]- All Rights Reserved
[2017-03-31] MEDS: CIPROFLOXACIN HCL 500 MG TABLET PO SCH (13:29)
[2017-03-31] MEDS: LANSOPRAZOLE 30 MG TAB.RAP.DR PO SCH (13:29)
[2017-03-31] MEDS: HYDROCHLOROTHIAZIDE 12.5 MG CAPSULE PO SCH (13:29)
[2017-03-31] MEDS: BUPROPION HCL 75 MG TABLET PO SCH (13:29)
[2017-03-31] MEDS: FLUTICASONE NASAL SPRAY 50 MCG/SPRY 120 SPRAY/16 GM NASL SCH (13:29)
[2017-03-31] MEDS: BUSPIRONE HCL 10 MG TABLET PO SCH (13:29)
[2017-03-31] MEDS: LISINOPRIL 10 MG TABLET PO SCH (13:29)
[2017-03-31] MEDS: MELOXICAM 7.5 MG TABLET PO SCH (13:29)
[2017-03-31] MEDS: NORMAL SALINE 1000 ML 1,000 ML IV PRN (14:13)
[2017-03-31] MEDS ORDERED: PHENOL/SODIUM PHENOLATE 100 SPRAY/177 ML BOTTLE PO PRN (15:21)
--- NOTE | 2017-03-31 18:05 | PDOC PROGRESS REPORT ---
Subjective Progress Note for:: 03/31/17 Subjective:: She has mechanical obstruction, small bowel obstruction, she had NG tube in place but she pulled it, she refused to have the NG tube reinserted Physical Exam Vital Signs: Temp Pulse Resp BP Pulse Ox 98.2 F 97 16 134/51 H 95 03/31/17 11:52 03/31/17 15:26 03/31/17 15:26 03/31/17 15:26 03/31/17 15:26 Eye exam: PRESENT: PERRLA Ear exam: PRESENT: normal external ear exam Neck exam: PRESENT: full ROM Respiratory exam: PRESENT: clear to auscultation radha Cardiovascular exam: PRESENT: RRR, +S1, +S2 Vascular exam: PRESENT: normal capillary refill GI/Abdominal exam: PRESENT: normal bowel sounds, soft Rectal exam: PRESENT: deferred Neurological exam: PRESENT: alert Psychiatric exam: PRESENT: appropriate affect, normal mood Skin exam: PRESENT: dry, intact, warm Results Impressions: Chest X-Ray 03/29/17 12:40 IMPRESSION: NO ACUTE RADIOGRAPHIC FINDING IN THE CHEST. Abdomen/Pelvis CT 03/30/17 00:00 IMPRESSION: CT FINDINGS COMPATIBLE WITH DISTAL SMALL BOWEL OBSTRUCTION WITH TRANSITION POINT SOMEWHAT DEEP IN THE PELVIS PRESUMABLY SECONDARY TO ADHESIONS GIVEN PRIOR SURGERIES. NO PNEUMATOSIS OR FREE AIR. ADDITIONAL CHRONIC CHANGES ABOVE. KUB X-Ray 03/31/17 02:36 IMPRESSION: Nasogastric tube tip and side port in the stomach. Assessment & Plan - Diagnosis (1) Small bowel obstruction due to adhesions Is this a current diagnosis for this admission?: Yes (2) Chronic obstructive pulmonary disease Qualifiers: COPD type: unspecified COPD Qualified Code(s): J44.9 - Chronic obstructive pulmonary disease, unspecified Is this a current diagnosis for this admission?: Yes (3) Hypertension Qualifiers: Hypertension type: essential hypertension Qualified Code(s): I10 - Essential (primary) hypertension - Plan Summary Plan Summary: She will still be kept n.p.o, continue to monitor.
[2017-03-31] MEDS ORDERED: TRAZODONE HCL 50 MG TABLET NG SCH (22:00)
[2017-04-01 09:02] LABS: ABSOLUTE BASOPHILS # (AUTO) 0.1 10^3/uL (0.0-0.2); ABSOLUTE EOSINOPHILS # (AUTO) 0.1 10^3/uL (0.0-0.6); ABSOLUTE LYMPHOCYTES (AUTO) 2.1 10^3/uL (0.5-4.7); ABSOLUTE MONOCYTES (AUTO) 0.8 10^3/uL (0.1-1.4); ABSOLUTE NEUT (AUTO) 4.8 10^3/uL (1.7-8.2); BASOPHILS % (AUTO) 0.7 % (0-2); EOSINOPHILS % (AUTO) 0.8 % (0-6); HEMATOCRIT 36.8 % (36.0-47.0); HEMOGLOBIN 12.7 g/dL (12.0-15.5); HGB HCT DIFFERENCE 1.3; LYMPHOCYTES % (AUTO) 26.7 % (13-45); MEAN CORPUSCULAR HEMOGLOBIN 31.2 pg (27.0-33.4); MEAN CORPUSCULAR HGB CONC 34.5 g/dL (32.0-36.0); MEAN CORPUSCULAR VOLUME 91 fl (80-97); RED BLOOD COUNT 4.06 10^6/uL (3.72-5.28); RED CELL DISTRIBUTION WIDTH 12.6 % (11.5-14.0); SEGMENTED NEUTROPHILS % (AUTO) 61.8 % (42-78); WHITE BLOOD COUNT 7.8 10^3/uL (4.0-10.5)
[2017-04-01 09:31] LABS: ALANINE AMINOTRANSFERASE 35 U/L (9-52); ALBUMIN 3.3 g/dL (3.5-5.0); ALKALINE PHOSPHATASE 70 U/L (38-126); ANION GAP 11 (5-19); ASPARTATE AMINO TRANSFERASE 36 U/L (14-36); BILIRUBIN,DIRECT 0.4 mg/dL (0.0-0.4); BILIRUBIN,TOTAL 0.6 mg/dL (0.2-1.3); BLOOD UREA NITROGEN 20 mg/dL (7-20); CALCIUM 8.4 mg/dL (8.4-10.2); CARBON DIOXIDE 23 mmol/L (22-30); CHLORIDE 106 mmol/L (98-107); CREATININE RESULT 0.83 mg/dL (0.52-1.25); GLUCOSE 80 mg/dL (75-110); POTASSIUM 4.2 mmol/L (3.6-5.0); SODIUM 139.5 mmol/L (137-145); TOTAL PROTEIN 5.9 g/dL (6.3-8.2)
--- NOTE | 2017-04-01 09:38 | PDOC PROGRESS REPORT ---
Subjective Progress Note for:: 04/01/17 Subjective:: The patient pulled her NG tube out yesterday afternoon. She has had some mild nausea but no vomiting. She began having loose stools last night. She feels much less distended today. Physical Exam Vital Signs: Temp Pulse Resp BP Pulse Ox 98.5 F 70 17 113/48 L 96 04/01/17 07:50 04/01/17 07:50 04/01/17 07:50 04/01/17 07:50 04/01/17 07:50 Intake & Output 03/31/17 04/01/17 04/02/17 06:59 06:59 06:59 Intake Total 2400 Output Total 2000 Balance 400 Weight 75.9 kg Exam: Awake, alert, oriented Lungs: Clear Cardiovascular: Regular rate Abdomen: Soft, nontender. Less distended. Bowel sounds present. Results Laboratory Results: 04/01/17 08:14 04/01/17 08:14 04/01/17 04/01/17 08:14 08:14 WBC 7.8 RBC 4.06 Hgb 12.7 Hct 36.8 MCV 91 MCH 31.2 MCHC 34.5 RDW 12.6 Plt Count 300 Seg Neutrophils % 61.8 Lymphocytes % 26.7 Monocytes % 10.0 Eosinophils % 0.8 Basophils % 0.7 Absolute Neutrophils 4.8 Absolute Lymphocytes 2.1 Absolute Monocytes 0.8 Absolute Eosinophils 0.1 Absolute Basophils 0.1 Sodium 139.5 Potassium 4.2 Chloride 106 Carbon Dioxide 23 Anion Gap 11 BUN 20 Creatinine 0.83 Est GFR ( Amer) > 60 Est GFR (Non-Af Amer) > 60 Glucose 80 Calcium 8.4 Total Bilirubin 0.6 AST 36 ALT 35 Alkaline Phosphatase 70 Total Protein 5.9 L Albumin 3.3 L Impressions: Chest X-Ray 03/29/17 12:40 IMPRESSION: NO ACUTE RADIOGRAPHIC FINDING IN THE CHEST. Abdomen/Pelvis CT 03/30/17 00:00 IMPRESSION: CT FINDINGS COMPATIBLE WITH DISTAL SMALL BOWEL OBSTRUCTION WITH TRANSITION POINT SOMEWHAT DEEP IN THE PELVIS PRESUMABLY SECONDARY TO ADHESIONS GIVEN PRIOR SURGERIES. NO PNEUMATOSIS OR FREE AIR. ADDITIONAL CHRONIC CHANGES ABOVE. KUB X-Ray 03/31/17 02:36 IMPRESSION: Nasogastric tube tip and side port in the stomach. Assessment & Plan - Diagnosis (1) Small bowel obstruction Is this a current diagnosis for this admission?: Yes Plan: She is improving clinically. As she is not having vomiting and she is passing stool, I will not replace her NG tube. Again, she is much less distended today. I will order sips of clear liquids today. Reassess tomorrow morning and advance diet tomorrow as tolerated.
[2017-04-01] MEDS: FLUTICASONE NASAL SPRAY 50 MCG/SPRY 120 SPRAY/16 GM NASL SCH (11:06)
--- NOTE | 2017-04-01 16:20 | PDOC PROGRESS REPORT ---
Subjective Progress Note for:: 04/01/17 Subjective:: Patient was seen by the bedside, she still have abdominal distention she was seen by the surgeon, she is on clear liquid diet Physical Exam Vital Signs: Temp Pulse Resp BP Pulse Ox 98.1 F 68 17 110/46 L 98 04/01/17 12:11 04/01/17 14:00 04/01/17 12:11 04/01/17 12:11 04/01/17 12:11 Intake & Output 03/31/17 04/01/17 04/02/17 06:59 06:59 06:59 Intake Total 2400 Output Total 2000 Balance 400 Weight 75.9 kg General appearance: PRESENT: no acute distress Head exam: PRESENT: atraumatic, normocephalic Eye exam: PRESENT: PERRLA Ear exam: PRESENT: normal external ear exam Mouth exam: PRESENT: moist, tongue midline Neck exam: PRESENT: full ROM Respiratory exam: PRESENT: clear to auscultation radha Cardiovascular exam: PRESENT: RRR, +S1, +S2 Pulses: PRESENT: normal dorsalis pedis pul, +2 pedal pulses bilateral Vascular exam: PRESENT: normal capillary refill GI/Abdominal exam: PRESENT: distended, normal bowel sounds, soft Rectal exam: PRESENT: deferred Neurological exam: PRESENT: alert, awake, oriented to person, oriented to place , oriented to time, oriented to situation, CN II-XII grossly intact. ABSENT: motor sensory deficit Psychiatric exam: PRESENT: appropriate affect, normal mood Skin exam: PRESENT: dry, intact, warm. ABSENT: cyanosis, rash Results Laboratory Results: 04/01/17 08:14 04/01/17 08:14 04/01/17 04/01/17 08:14 08:14 WBC 7.8 RBC 4.06 Hgb 12.7 Hct 36.8 MCV 91 MCH 31.2 MCHC 34.5 RDW 12.6 Plt Count 300 Seg Neutrophils % 61.8 Lymphocytes % 26.7 Monocytes % 10.0 Eosinophils % 0.8 Basophils % 0.7 Absolute Neutrophils 4.8 Absolute Lymphocytes 2.1 Absolute Monocytes 0.8 Absolute Eosinophils 0.1 Absolute Basophils 0.1 Sodium 139.5 Potassium 4.2 Chloride 106 Carbon Dioxide 23 Anion Gap 11 BUN 20 Creatinine 0.83 Est GFR ( Amer) > 60 Est GFR (Non-Af Amer) > 60 Glucose 80 Calcium 8.4 Total Bilirubin 0.6 AST 36 ALT 35 Alkaline Phosphatase 70 Total Protein 5.9 L Albumin 3.3 L Impressions: Chest X-Ray 03/29/17 12:40 IMPRESSION: NO ACUTE RADIOGRAPHIC FINDING IN THE CHEST. Abdomen/Pelvis CT 03/30/17 00:00 IMPRESSION: CT FINDINGS COMPATIBLE WITH DISTAL SMALL BOWEL OBSTRUCTION WITH TRANSITION POINT SOMEWHAT DEEP IN THE PELVIS PRESUMABLY SECONDARY TO ADHESIONS GIVEN PRIOR SURGERIES. NO PNEUMATOSIS OR FREE AIR. ADDITIONAL CHRONIC CHANGES ABOVE. KUB X-Ray 03/31/17 02:36 IMPRESSION: Nasogastric tube tip and side port in the stomach. Assessment & Plan - Diagnosis (1) Small bowel obstruction due to adhesions Is this a current diagnosis for this admission?: Yes Plan: KUB ordered (2) Chronic obstructive pulmonary disease Qualifiers: COPD type: unspecified COPD Qualified Code(s): J44.9 - Chronic obstructive pulmonary disease, unspecified Is this a current diagnosis for this admission?: Yes (3) Hypertension Qualifiers: Hypertension type: essential hypertension Qualified Code(s): I10 - Essential (primary) hypertension
--- NOTE | 2017-04-01 17:01 | RADIOLOGY REPORT (SQ) ---
EXAM DESCRIPTION: KUB/ABDOMEN (SINGLE VIEW) COMPLETED DATE/TIME: 04/01/2017 4:21 pm REASON FOR STUDY: SBO R10.84 GENERALIZED ABDOMINAL PAIN COMPARISON: Abdominal films 03/31/2017, 03/30/2017 CT abdomen pelvis 09/19/2014 NUMBER OF VIEWS: One view. TECHNIQUE: Supine radiographic image of the abdomen acquired. LIMITATIONS: None. FINDINGS: BOWEL GAS PATTERN: Dilated small bowel loops in the mid abdomen, out of proportion to stom ach and colon. This could represent a partial small bowel obstruction. This is similar compared to 03/31/2017. Nasogastric tube has been removed. CALCIFICATIONS: No suspicious calcifications. SOFT TISSUES: No gross mass or suggestion of organomegaly. HARDWARE: Clips right upper quadrant post cholecystectomy. L4-5 fusion with hardware. Left iliac ar kristopher vascular stent. BONES: No acute fracture. No worrisome bone lesions. OTHER: No other significant finding. IMPRESSION: Nasogastric tube is been removed. Persistent dilated small bowel loops in the mid abdomen, out of proportion to stomach and colon. Fin dings are worrisome for partial small bowel obstruction TECHNICAL DOCUMENTATION: JOB ID: [id number] [employer]- All Rights Reserved
[2017-04-01] MEDS: ONDANSETRON HCL INJ/PF 4 MG/2 ML SDV IV PRN (19:48)
[2017-04-02] MEDS: ONDANSETRON HCL INJ/PF 4 MG/2 ML SDV IV PRN ×3 (02:04→14:22)
[2017-04-02 05:19] LABS: ABSOLUTE EOSINOPHILS # (AUTO) 0.1 10^3/uL (0.0-0.6); ABSOLUTE LYMPHOCYTES (AUTO) 2.1 10^3/uL (0.5-4.7); ABSOLUTE MONOCYTES (AUTO) 0.8 10^3/uL (0.1-1.4); ABSOLUTE NEUT (AUTO) 5.3 10^3/uL (1.7-8.2); BASOPHILS % (AUTO) 0.5 % (0-2); EOSINOPHILS % (AUTO) 0.9 % (0-6); HEMOGLOBIN 12.7 g/dL (12.0-15.5); HGB HCT DIFFERENCE 2.1; LYMPHOCYTES % (AUTO) 25.7 % (13-45); MEAN CORPUSCULAR HEMOGLOBIN 31.5 pg (27.0-33.4); MEAN CORPUSCULAR HGB CONC 35.4 g/dL (32.0-36.0); MEAN CORPUSCULAR VOLUME 89 fl (80-97); MONOCYTES % (AUTO) 9.1 % (3-13); RED BLOOD COUNT 4.05 10^6/uL (3.72-5.28); RED CELL DISTRIBUTION WIDTH 12.8 % (11.5-14.0); SEGMENTED NEUTROPHILS % (AUTO) 63.8 % (42-78); WHITE BLOOD COUNT 8.3 10^3/uL (4.0-10.5)
[2017-04-02 05:41] LABS: ALANINE AMINOTRANSFERASE 31 U/L (9-52); ALBUMIN 3.4 g/dL (3.5-5.0); ALKALINE PHOSPHATASE 76 U/L (38-126); ANION GAP 11 (5-19); ASPARTATE AMINO TRANSFERASE 34 U/L (14-36); BILIRUBIN,DIRECT 0.4 mg/dL (0.0-0.4); BILIRUBIN,TOTAL 0.6 mg/dL (0.2-1.3); BLOOD UREA NITROGEN 14 mg/dL (7-20); CALCIUM 8.6 mg/dL (8.4-10.2); CARBON DIOXIDE 22 mmol/L (22-30); CHLORIDE 106 mmol/L (98-107); CREATININE RESULT 0.71 mg/dL (0.52-1.25); GLUCOSE 85 mg/dL (75-110); POTASSIUM 3.7 mmol/L (3.6-5.0); SODIUM 139.3 mmol/L (137-145); TOTAL PROTEIN 6.1 g/dL (6.3-8.2)
--- NOTE | 2017-04-02 09:32 | PDOC PROGRESS REPORT ---
Subjective Progress Note for:: 04/02/17 Subjective:: Abdominal distention and nausea but no emesis. Patient having diarrhea now. Physical Exam Vital Signs: Temp Pulse Resp BP Pulse Ox 98.1 F 62 17 115/41 L 96 04/02/17 05:01 04/02/17 07:00 04/02/17 05:01 04/02/17 05:01 04/02/17 05:01 Intake & Output 04/01/17 04/02/17 04/03/17 06:59 06:59 06:59 Intake Total 2400 3717 Output Total 2000 Balance 400 3717 Weight 75.9 kg General appearance: PRESENT: no acute distress, cooperative Respiratory exam: PRESENT: clear to auscultation radha Cardiovascular exam: PRESENT: RRR GI/Abdominal exam: PRESENT: other - Soft, moderately distended, tender across her mid and upper abdomen without peritoneal signs. Results Laboratory Results: 04/02/17 03:55 04/02/17 03:55 04/01/17 04/02/17 04/02/17 08:14 03:55 03:55 WBC 8.3 RBC 4.05 Hgb 12.7 Hct 36.0 MCV 89 MCH 31.5 MCHC 35.4 RDW 12.8 Plt Count 296 Seg Neutrophils % 63.8 Lymphocytes % 25.7 Monocytes % 9.1 Eosinophils % 0.9 Basophils % 0.5 Absolute Neutrophils 5.3 Absolute Lymphocytes 2.1 Absolute Monocytes 0.8 Absolute Eosinophils 0.1 Absolute Basophils 0.0 Sodium 139.5 139.3 Potassium 4.2 3.7 Chloride 106 106 Carbon Dioxide 23 22 Anion Gap 11 11 BUN 20 14 Creatinine 0.83 0.71 Est GFR ( Amer) > 60 > 60 Est GFR (Non-Af Amer) > 60 > 60 Glucose 80 85 Calcium 8.4 8.6 Total Bilirubin 0.6 0.6 AST 36 34 ALT 35 31 Alkaline Phosphatase 70 76 Total Protein 5.9 L 6.1 L Albumin 3.3 L 3.4 L Impressions: Chest X-Ray 03/29/17 12:40 IMPRESSION: NO ACUTE RADIOGRAPHIC FINDING IN THE CHEST. Abdomen/Pelvis CT 03/30/17 00:00 IMPRESSION: CT FINDINGS COMPATIBLE WITH DISTAL SMALL BOWEL OBSTRUCTION WITH TRANSITION POINT SOMEWHAT DEEP IN THE PELVIS PRESUMABLY SECONDARY TO ADHESIONS GIVEN PRIOR SURGERIES. NO PNEUMATOSIS OR FREE AIR. ADDITIONAL CHRONIC CHANGES ABOVE. KUB X-Ray 04/01/17 00:00 IMPRESSION: Nasogastric tube is been removed. Persistent dilated small bowel loops in the mid abdomen, out of proportion to stomach and colon. Findings are worrisome for partial small bowel obstruction Assessment & Plan - Diagnosis (1) Vomiting and diarrhea Is this a current diagnosis for this admission?: Yes Plan: CT scan concerning for small bowel obstruction but patient is now having diarrhea. However she is still distended and nauseous. Will obtain a small bowel follow series today to exclude partial small bowel obstruction. Will also obtain stool studies.
[2017-04-02] MEDS: FLUTICASONE NASAL SPRAY 50 MCG/SPRY 120 SPRAY/16 GM NASL SCH (09:56)
--- NOTE | 2017-04-02 14:48 | RADIOLOGY REPORT (SQ) ---
EXAM DESCRIPTION: SMALL BOWEL SERIES COMPLETED DATE/TIME: 04/02/2017 2:29 pm REASON FOR STUDY: r/o sbo R10.84 GENERALIZED ABDOMINAL PAIN COMPARISON: CT abdomen pelvis 09/19/2014, 03/30/2017 Abdominal films 03/31/2017, 04/01/2017 FLUOROSCOPY TIME: No fluoro utilized 8 KUB images saved to PACS. LIMITATIONS: None. PROCEDURE: Initial time study analyst image of abdomen acquired, followed by administration of oral contrast. Se rial radiographic images acquired. Fluoroscopic images recorded of the terminal ileum and other merissa cated areas. All images stored on PACS. FINDINGS: [employer] KUB: There is gaseous distension of small bowel in the mid abdomen. Mild gaseous di stension of stomach and ascending colon. Old clips right upper quadrant post cholecystectomy. Post L4-5 fusion left iliac artery stents. Pessary in the vagina. Serial films demonstrate antegrade movement of 180 mL of Gastrografin through the stomach, small belinda l and colon. Cereal films up to 2 hours and 30 minutes. Although there is mild diffuse distention of small bowel, no obstruction is evident. By 2 hours and 30 minutes, oral contrast is seen in the ascending, transverse, and descending colon in a nonobstruct mayela pattern. IMPRESSION: No small bowel obstruction COMMENT: Quality ID [id number]: Final reports for procedures using fluoroscopy that document radiation exp osure indices, or exposure time and number of fluorographic images (if radiation exposure indices are not available) TECHNICAL DOCUMENTATION: JOB ID: [id number] [employer]- All Rights Reserved
--- NOTE | 2017-04-02 18:33 | PDOC PROGRESS REPORT ---
Subjective Progress Note for:: 04/02/17 Subjective:: Her. No nausea or vomiting. Continued to have bowel movements. Physical Exam Vital Signs: Temp Pulse Resp BP Pulse Ox 98.5 F 64 17 135/52 H 97 04/02/17 16:15 04/02/17 16:15 04/02/17 16:15 04/02/17 16:15 04/02/17 16:15 Intake & Output 04/01/17 04/02/17 04/03/17 06:59 06:59 06:59 Intake Total 2400 3717 1200 Output Total 2000 Balance 400 3717 1200 Weight 75.9 kg General appearance: PRESENT: no acute distress Results Laboratory Results: 04/02/17 03:55 04/02/17 03:55 04/02/17 04/02/17 04/02/17 03:55 03:55 14:00 WBC 8.3 RBC 4.05 Hgb 12.7 Hct 36.0 MCV 89 MCH 31.5 MCHC 35.4 RDW 12.8 Plt Count 296 Seg Neutrophils % 63.8 Lymphocytes % 25.7 Monocytes % 9.1 Eosinophils % 0.9 Basophils % 0.5 Absolute Neutrophils 5.3 Absolute Lymphocytes 2.1 Absolute Monocytes 0.8 Absolute Eosinophils 0.1 Absolute Basophils 0.0 Sodium 139.3 Potassium 3.7 Chloride 106 Carbon Dioxide 22 Anion Gap 11 BUN 14 Creatinine 0.71 Est GFR ( Amer) > 60 Est GFR (Non-Af Amer) > 60 Glucose 85 Calcium 8.6 Total Bilirubin 0.6 AST 34 ALT 31 Alkaline Phosphatase 76 Total Protein 6.1 L Albumin 3.4 L Stool for White Cells FEW H Impressions: Chest X-Ray 03/29/17 12:40 IMPRESSION: NO ACUTE RADIOGRAPHIC FINDING IN THE CHEST. Abdomen/Pelvis CT 03/30/17 00:00 IMPRESSION: CT FINDINGS COMPATIBLE WITH DISTAL SMALL BOWEL OBSTRUCTION WITH TRANSITION POINT SOMEWHAT DEEP IN THE PELVIS PRESUMABLY SECONDARY TO ADHESIONS GIVEN PRIOR SURGERIES. NO PNEUMATOSIS OR FREE AIR. ADDITIONAL CHRONIC CHANGES ABOVE. KUB X-Ray 04/01/17 00:00 IMPRESSION: Nasogastric tube is been removed. Persistent dilated small bowel loops in the mid abdomen, out of proportion to stomach and colon. Findings are worrisome for partial small bowel obstruction Small Bowel X-Ray 04/02/17 00:00 IMPRESSION: No small bowel obstruction Assessment & Plan - Diagnosis (1) Vomiting and diarrhea Is this a current diagnosis for this admission?: Yes Plan: Small bowel follow study demonstrates no evidence of small bowel obstruction. Will go ahead and start a diet today. Await stool studies. I do not see any need for surgical intervention. May advance diet as tolerated general surgery will sign off please call us for any issues.
--- NOTE | 2017-04-02 21:15 | PDOC PROGRESS REPORT ---
Subjective Progress Note for:: 04/02/17 Subjective:: She was seen by the surgeon the small bowel series showed no obstruction no more need for surgical intervention Physical Exam Vital Signs: Temp Pulse Resp BP Pulse Ox 98.5 F 62 16 141/43 H 97 04/02/17 20:00 04/02/17 20:00 04/02/17 20:00 04/02/17 20:00 04/02/17 20:00 Intake & Output 04/01/17 04/02/17 04/03/17 06:59 06:59 06:59 Intake Total 2400 3717 1200 Output Total 2000 Balance 400 3717 1200 Weight 75.9 kg General appearance: PRESENT: no acute distress, well-developed, well-nourished Head exam: PRESENT: atraumatic, normocephalic Eye exam: PRESENT: conjunctiva pink, EOMI, PERRLA Ear exam: PRESENT: normal external ear exam Mouth exam: PRESENT: moist, tongue midline Neck exam: PRESENT: full ROM Respiratory exam: PRESENT: clear to auscultation radha Cardiovascular exam: PRESENT: RRR, +S1, +S2 Vascular exam: PRESENT: normal capillary refill GI/Abdominal exam: PRESENT: normal bowel sounds, soft Rectal exam: PRESENT: deferred Neurological exam: PRESENT: alert, awake, oriented to person, oriented to place , oriented to time, oriented to situation, CN II-XII grossly intact. ABSENT: motor sensory deficit Psychiatric exam: PRESENT: appropriate affect, normal mood Skin exam: PRESENT: dry, intact, warm Results Laboratory Results: 04/02/17 03:55 04/02/17 03:55 04/02/17 04/02/17 04/02/17 03:55 03:55 14:00 WBC 8.3 RBC 4.05 Hgb 12.7 Hct 36.0 MCV 89 MCH 31.5 MCHC 35.4 RDW 12.8 Plt Count 296 Seg Neutrophils % 63.8 Lymphocytes % 25.7 Monocytes % 9.1 Eosinophils % 0.9 Basophils % 0.5 Absolute Neutrophils 5.3 Absolute Lymphocytes 2.1 Absolute Monocytes 0.8 Absolute Eosinophils 0.1 Absolute Basophils 0.0 Sodium 139.3 Potassium 3.7 Chloride 106 Carbon Dioxide 22 Anion Gap 11 BUN 14 Creatinine 0.71 Est GFR ( Amer) > 60 Est GFR (Non-Af Amer) > 60 Glucose 85 Calcium 8.6 Total Bilirubin 0.6 AST 34 ALT 31 Alkaline Phosphatase 76 Total Protein 6.1 L Albumin 3.4 L Stool for White Cells FEW H Impressions: Chest X-Ray 03/29/17 12:40 IMPRESSION: NO ACUTE RADIOGRAPHIC FINDING IN THE CHEST. Abdomen/Pelvis CT 03/30/17 00:00 IMPRESSION: CT FINDINGS COMPATIBLE WITH DISTAL SMALL BOWEL OBSTRUCTION WITH TRANSITION POINT SOMEWHAT DEEP IN THE PELVIS PRESUMABLY SECONDARY TO ADHESIONS GIVEN PRIOR SURGERIES. NO PNEUMATOSIS OR FREE AIR. ADDITIONAL CHRONIC CHANGES ABOVE. KUB X-Ray 04/01/17 00:00 IMPRESSION: Nasogastric tube is been removed. Persistent dilated small bowel loops in the mid abdomen, out of proportion to stomach and colon. Findings are worrisome for partial small bowel obstruction Small Bowel X-Ray 04/02/17 00:00 IMPRESSION: No small bowel obstruction Assessment & Plan - Diagnosis (1) Small bowel obstruction due to adhesions Is this a current diagnosis for this admission?: Yes (2) Chronic obstructive pulmonary disease Qualifiers: COPD type: unspecified COPD Qualified Code(s): J44.9 - Chronic obstructive pulmonary disease, unspecified Is this a current diagnosis for this admission?: Yes (3) Hypertension Qualifiers: Hypertension type: essential hypertension Qualified Code(s): I10 - Essential (primary) hypertension
[2017-04-02] MEDS: NORMAL SALINE 1000 ML 1,000 ML IV PRN (23:57)
[2017-04-03] MEDS: FLUTICASONE NASAL SPRAY 50 MCG/SPRY 120 SPRAY/16 GM NASL SCH (10:21)
[2017-04-03] MEDS: NORMAL SALINE 1000 ML 1,000 ML IV PRN ×2 (10:22→23:53)
[2017-04-03] MEDS: ONDANSETRON HCL INJ/PF 4 MG/2 ML SDV IV PRN ×2 (17:35→22:33)
--- NOTE | 2017-04-03 19:21 | PDOC PROGRESS REPORT ---
Subjective Progress Note for:: 04/03/17 Subjective:: She was seen by the bedside, will advance diet to regular diet Physical Exam Vital Signs: Temp Pulse Resp BP Pulse Ox 97.9 F 57 L 20 113/47 L 100 04/03/17 15:30 04/03/17 15:30 04/03/17 15:30 04/03/17 15:30 04/03/17 15:30 Intake & Output 04/02/17 04/03/17 04/04/17 06:59 06:59 06:59 Intake Total 3717 2400 2009 Balance 3717 2400 2009 General appearance: PRESENT: no acute distress, well-developed, well-nourished Head exam: PRESENT: atraumatic, normocephalic Eye exam: PRESENT: conjunctiva pink, EOMI, PERRLA Ear exam: PRESENT: normal external ear exam Mouth exam: PRESENT: moist, tongue midline Neck exam: PRESENT: full ROM Respiratory exam: PRESENT: clear to auscultation radha Cardiovascular exam: PRESENT: RRR, +S1, +S2 Pulses: PRESENT: normal dorsalis pedis pul, +2 pedal pulses bilateral Vascular exam: PRESENT: normal capillary refill GI/Abdominal exam: PRESENT: distended, normal bowel sounds, soft Rectal exam: PRESENT: deferred Neurological exam: PRESENT: alert, awake, oriented to person, oriented to place , oriented to time, oriented to situation, CN II-XII grossly intact Psychiatric exam: PRESENT: appropriate affect, normal mood Skin exam: PRESENT: dry, intact, warm Results Laboratory Results: 04/02/17 03:55 04/02/17 03:55 Impressions: Chest X-Ray 03/29/17 12:40 IMPRESSION: NO ACUTE RADIOGRAPHIC FINDING IN THE CHEST. Abdomen/Pelvis CT 03/30/17 00:00 IMPRESSION: CT FINDINGS COMPATIBLE WITH DISTAL SMALL BOWEL OBSTRUCTION WITH TRANSITION POINT SOMEWHAT DEEP IN THE PELVIS PRESUMABLY SECONDARY TO ADHESIONS GIVEN PRIOR SURGERIES. NO PNEUMATOSIS OR FREE AIR. ADDITIONAL CHRONIC CHANGES ABOVE. KUB X-Ray 04/01/17 00:00 IMPRESSION: Nasogastric tube is been removed. Persistent dilated small bowel loops in the mid abdomen, out of proportion to stomach and colon. Findings are worrisome for partial small bowel obstruction Small Bowel X-Ray 04/02/17 00:00 IMPRESSION: No small bowel obstruction Assessment & Plan - Diagnosis (1) Small bowel obstruction due to adhesions Is this a current diagnosis for this admission?: Yes (2) Chronic obstructive pulmonary disease Qualifiers: COPD type: unspecified COPD Qualified Code(s): J44.9 - Chronic obstructive pulmonary disease, unspecified Is this a current diagnosis for this admission?: Yes (3) Hypertension Qualifiers: Hypertension type: essential hypertension Qualified Code(s): I10 - Essential (primary) hypertension
[2017-04-04] MEDS: CIPROFLOXACIN HCL 500 MG TABLET PO SCH ×3 (03:28→22:19)
[2017-04-04] MEDS: TRAZODONE HCL 50 MG TABLET PO SCH ×2 (03:28→22:22)
[2017-04-04] MEDS: LISINOPRIL 10 MG TABLET PO SCH ×3 (03:28→22:21)
[2017-04-04] MEDS: BUSPIRONE HCL 10 MG TABLET PO SCH ×3 (03:28→22:36)
[2017-04-04] MEDS: BUPROPION HCL 75 MG TABLET PO SCH ×3 (03:28→22:36)
[2017-04-04] MEDS: HYDROCHLOROTHIAZIDE 12.5 MG CAPSULE PO SCH ×3 (03:28→22:19)
[2017-04-04] MEDS: GABAPENTIN 400 MG CAPSULE PO SCH ×4 (03:28→22:20)
[2017-04-04] MEDS: ONDANSETRON HCL INJ/PF 4 MG/2 ML SDV IV PRN ×3 (05:54→20:13)
[2017-04-04] MEDS: LANSOPRAZOLE 30 MG TAB.RAP.DR PO SCH (09:10)
[2017-04-04] MEDS: MELOXICAM 7.5 MG TABLET PO SCH (09:11)
[2017-04-04] MEDS: FLUTICASONE NASAL SPRAY 50 MCG/SPRY 120 SPRAY/16 GM NASL SCH (09:12)
--- NOTE | 2017-04-04 14:27 | PDOC PROGRESS REPORT ---
Subjective Progress Note for:: 04/04/17 Subjective:: Patient was admitted for the management of small bowel obstruction, she refused placement of nasogastric tube, she continued to vomit greenish material. The surgeon signed off the case yesterday because the small bowel series that was done showed no more small bowel obstruction and there was no more indication for surgical intervention. The best therapeutic option for this patient will be placement of nasogastric tube but she refused that. Physical Exam Vital Signs: Temp Pulse Resp BP Pulse Ox 98.6 F 80 18 166/44 H 97 04/04/17 12:55 04/04/17 12:55 04/04/17 12:55 04/04/17 12:55 04/04/17 12:55 Intake & Output 04/03/17 04/04/17 04/05/17 06:59 06:59 06:59 Intake Total 2400 3955 924 Balance 2400 3955 924 Weight 77 kg General appearance: PRESENT: mild distress Eye exam: PRESENT: PERRLA Respiratory exam: PRESENT: clear to auscultation radha Cardiovascular exam: PRESENT: +S1, +S2 GI/Abdominal exam: PRESENT: distended, soft Neurological exam: PRESENT: alert Results Laboratory Results: 04/02/17 03:55 04/02/17 03:55 Impressions: Chest X-Ray 03/29/17 12:40 IMPRESSION: NO ACUTE RADIOGRAPHIC FINDING IN THE CHEST. Abdomen/Pelvis CT 03/30/17 00:00 IMPRESSION: CT FINDINGS COMPATIBLE WITH DISTAL SMALL BOWEL OBSTRUCTION WITH TRANSITION POINT SOMEWHAT DEEP IN THE PELVIS PRESUMABLY SECONDARY TO ADHESIONS GIVEN PRIOR SURGERIES. NO PNEUMATOSIS OR FREE AIR. ADDITIONAL CHRONIC CHANGES ABOVE. KUB X-Ray 04/01/17 00:00 IMPRESSION: Nasogastric tube is been removed. Persistent dilated small bowel loops in the mid abdomen, out of proportion to stomach and colon. Findings are worrisome for partial small bowel obstruction Small Bowel X-Ray 04/02/17 00:00 IMPRESSION: No small bowel obstruction Assessment & Plan - Diagnosis (1) Small bowel obstruction due to adhesions Is this a current diagnosis for this admission?: Yes (2) Chronic obstructive pulmonary disease Qualifiers: COPD type: unspecified COPD Qualified Code(s): J44.9 - Chronic obstructive pulmonary disease, unspecified Is this a current diagnosis for this admission?: Yes (3) Hypertension Qualifiers: Hypertension type: essential hypertension Qualified Code(s): I10 - Essential (primary) hypertension (4) Vomiting Qualifiers: Vomiting type: bilious vomiting Nausea presence: with nausea Qualified Code(s): R11.14 - Bilious vomiting Is this a current diagnosis for this admission?: Yes Plan: Patient refused placement of nasogastric tube, she has small bowel obstruction with distended abdomen
[2017-04-04] MEDS: NORMAL SALINE 1000 ML 1,000 ML IV PRN (20:12)
[2017-04-04 21:12] LABS: ABSOLUTE EOSINOPHILS # (AUTO) 0.1 10^3/uL (0.0-0.6); ABSOLUTE LYMPHOCYTES (AUTO) 2.2 10^3/uL (0.5-4.7); ABSOLUTE MONOCYTES (AUTO) 0.9 10^3/uL (0.1-1.4); ABSOLUTE NEUT (AUTO) 5.1 10^3/uL (1.7-8.2); BASOPHILS % (AUTO) 0.5 % (0-2); HEMATOCRIT 34.5 % (36.0-47.0); HEMOGLOBIN 12.1 g/dL (12.0-15.5); HGB HCT DIFFERENCE 1.8; LYMPHOCYTES % (AUTO) 26.5 % (13-45); MEAN CORPUSCULAR HEMOGLOBIN 31.6 pg (27.0-33.4); MEAN CORPUSCULAR VOLUME 90 fl (80-97); MONOCYTES % (AUTO) 10.5 % (3-13); RED BLOOD COUNT 3.83 10^6/uL (3.72-5.28); RED CELL DISTRIBUTION WIDTH 12.6 % (11.5-14.0); SEGMENTED NEUTROPHILS % (AUTO) 61.5 % (42-78); WHITE BLOOD COUNT 8.3 10^3/uL (4.0-10.5)
[2017-04-04 21:35] LABS: ALANINE AMINOTRANSFERASE 32 U/L (9-52); ALBUMIN 3.3 g/dL (3.5-5.0); ALKALINE PHOSPHATASE 61 U/L (38-126); ANION GAP 13 (5-19); ASPARTATE AMINO TRANSFERASE 17 U/L (14-36); BILIRUBIN,DIRECT 0.4 mg/dL (0.0-0.4); BILIRUBIN,TOTAL 0.4 mg/dL (0.2-1.3); BLOOD UREA NITROGEN 10 mg/dL (7-20); CALCIUM 8.6 mg/dL (8.4-10.2); CARBON DIOXIDE 23 mmol/L (22-30); CHLORIDE 107 mmol/L (98-107); CREATININE RESULT 0.74 mg/dL (0.52-1.25); GLUCOSE 108 mg/dL (75-110); MAGNESIUM 1.6 mg/dL (1.6-2.3); SODIUM 143.3 mmol/L (137-145); TOTAL PROTEIN 5.6 g/dL (6.3-8.2)
[2017-04-04 21:41] LABS: POTASSIUM 2.9 mmol/L (3.6-5.0)
[2017-04-04] MEDS ORDERED: POTASSI CL 20 MEQ/50 ML RIDER 20 MEQ/50 ML RTUPB IV ONE (22:04)
[2017-04-04] MEDS: POTASSIUM CHLORIDE 20 MEQ/50 ML RTU IV SCH (22:23)
[2017-04-05] MEDS: POTASSIUM CHLORIDE 20 MEQ/50 ML RTU IV SCH (01:02)
[2017-04-05] MEDS: GABAPENTIN 400 MG CAPSULE PO SCH ×3 (05:34→22:03)
[2017-04-05] MEDS: NORMAL SALINE 1000 ML 1,000 ML IV PRN (05:37)
[2017-04-05 07:08] LABS: ANION GAP 12 (5-19); BLOOD UREA NITROGEN 8 mg/dL (7-20); CALCIUM 8.6 mg/dL (8.4-10.2); CARBON DIOXIDE 25 mmol/L (22-30); CHLORIDE 108 mmol/L (98-107); CREATININE RESULT 0.79 mg/dL (0.52-1.25); GLUCOSE 95 mg/dL (75-110); MAGNESIUM 1.7 mg/dL (1.6-2.3); POTASSIUM 3.5 mmol/L (3.6-5.0); SODIUM 144.8 mmol/L (137-145)
[2017-04-05] MEDS: LISINOPRIL 10 MG TABLET PO SCH ×2 (10:53→22:03)
[2017-04-05] MEDS: BUSPIRONE HCL 10 MG TABLET PO SCH ×2 (10:53→22:05)
[2017-04-05] MEDS: CIPROFLOXACIN HCL 500 MG TABLET PO SCH ×2 (10:53→22:04)
[2017-04-05] MEDS: FLUTICASONE NASAL SPRAY 50 MCG/SPRY 120 SPRAY/16 GM NASL SCH (10:53)
[2017-04-05] MEDS: LANSOPRAZOLE 30 MG TAB.RAP.DR PO SCH (10:54)
[2017-04-05] MEDS: BUPROPION HCL 75 MG TABLET PO SCH ×2 (10:54→22:06)
[2017-04-05] MEDS: HYDROCHLOROTHIAZIDE 12.5 MG CAPSULE PO SCH ×2 (10:54→22:05)
[2017-04-05] MEDS: MELOXICAM 7.5 MG TABLET PO SCH (10:54)
[2017-04-05] MEDS ORDERED: POTASSI CL 20 MEQ/50 ML RIDER 20 MEQ/50 ML RTUPB IV ONE (11:06)
[2017-04-05 14:07] LABS: ABSOLUTE BASOPHILS # (AUTO) 0.1 10^3/uL (0.0-0.2); ABSOLUTE EOSINOPHILS # (AUTO) 0.1 10^3/uL (0.0-0.6); ABSOLUTE LYMPHOCYTES (AUTO) 2.9 10^3/uL (0.5-4.7); ABSOLUTE MONOCYTES (AUTO) 0.7 10^3/uL (0.1-1.4); ABSOLUTE NEUT (AUTO) 5.2 10^3/uL (1.7-8.2); BASOPHILS % (AUTO) 0.8 % (0-2); EOSINOPHILS % (AUTO) 1.6 % (0-6); HEMATOCRIT 32.5 % (36.0-47.0); HEMOGLOBIN 11.5 g/dL (12.0-15.5); LYMPHOCYTES % (AUTO) 31.8 % (13-45); MEAN CORPUSCULAR HEMOGLOBIN 31.5 pg (27.0-33.4); MEAN CORPUSCULAR HGB CONC 35.3 g/dL (32.0-36.0); MEAN CORPUSCULAR VOLUME 89 fl (80-97); MONOCYTES % (AUTO) 7.8 % (3-13); RED BLOOD COUNT 3.63 10^6/uL (3.72-5.28); RED CELL DISTRIBUTION WIDTH 12.7 % (11.5-14.0)
[2017-04-05 14:36] LABS: ALANINE AMINOTRANSFERASE 32 U/L (9-52); ALBUMIN 3.1 g/dL (3.5-5.0); ALKALINE PHOSPHATASE 63 U/L (38-126); ANION GAP 13 (5-19); ASPARTATE AMINO TRANSFERASE 16 U/L (14-36); BILIRUBIN,DIRECT 0.2 mg/dL (0.0-0.4); BILIRUBIN,TOTAL 0.3 mg/dL (0.2-1.3); BLOOD UREA NITROGEN 8 mg/dL (7-20); CALCIUM 8.5 mg/dL (8.4-10.2); CARBON DIOXIDE 22 mmol/L (22-30); CHLORIDE 107 mmol/L (98-107); GLUCOSE 89 mg/dL (75-110); POTASSIUM 3.2 mmol/L (3.6-5.0); SODIUM 141.6 mmol/L (137-145); TOTAL PROTEIN 5.2 g/dL (6.3-8.2)
--- NOTE | 2017-04-05 14:47 | PDOC PROGRESS REPORT ---
Subjective Progress Note for:: 04/05/17 Subjective:: Patient was seen by the bedside, she is no longer vomiting, she be kept for another 24 hours if there is no more vomiting and diarrhea she be discharged to home Physical Exam Vital Signs: Temp Pulse Resp BP Pulse Ox 98.1 F 58 L 16 119/44 L 99 04/05/17 07:47 04/05/17 07:47 04/05/17 07:47 04/05/17 07:47 04/05/17 07:47 Intake & Output 04/04/17 04/05/17 04/06/17 06:59 06:59 06:59 Intake Total 3955 3745 Balance 3955 3745 Weight 77 kg 76.9 kg General appearance: PRESENT: no acute distress Eye exam: PRESENT: PERRLA Respiratory exam: PRESENT: clear to auscultation radha Cardiovascular exam: PRESENT: +S1, +S2 GI/Abdominal exam: PRESENT: soft Neurological exam: PRESENT: alert Results Laboratory Results: 04/05/17 13:38 04/04/17 04/04/17 04/05/17 21:00 21:00 06:11 WBC 8.3 RBC 3.83 Hgb 12.1 Hct 34.5 L MCV 90 MCH 31.6 MCHC 35.0 RDW 12.6 Plt Count 319 Seg Neutrophils % 61.5 Lymphocytes % 26.5 Monocytes % 10.5 Eosinophils % 1.0 Basophils % 0.5 Absolute Neutrophils 5.1 Absolute Lymphocytes 2.2 Absolute Monocytes 0.9 Absolute Eosinophils 0.1 Absolute Basophils 0.0 Sodium 143.3 144.8 Potassium 2.9 L* 3.5 L Chloride 107 108 H Carbon Dioxide 23 25 Anion Gap 13 12 BUN 10 8 Creatinine 0.74 0.79 Est GFR ( Amer) > 60 > 60 Est GFR (Non-Af Amer) > 60 > 60 Glucose 108 95 Calcium 8.6 8.6 Magnesium 1.6 1.7 Total Bilirubin 0.4 AST 17 ALT 32 Alkaline Phosphatase 61 Total Protein 5.6 L Albumin 3.3 L 04/05/17 13:38 WBC 9.0 RBC 3.63 L Hgb 11.5 L Hct 32.5 L MCV 89 MCH 31.5 MCHC 35.3 RDW 12.7 Plt Count 299 Seg Neutrophils % 58.0 Lymphocytes % 31.8 Monocytes % 7.8 Eosinophils % 1.6 Basophils % 0.8 Absolute Neutrophils 5.2 Absolute Lymphocytes 2.9 Absolute Monocytes 0.7 Absolute Eosinophils 0.1 Absolute Basophils 0.1 Sodium Potassium Chloride Carbon Dioxide Anion Gap BUN Creatinine Est GFR ( Amer) Est GFR (Non-Af Amer) Glucose Calcium Magnesium Total Bilirubin AST ALT Alkaline Phosphatase Total Protein Albumin 04/02/17 14:00 Stool - Stool - Final 04/02/17 14:00 Stool - Stool Stool Culture - Final C.albicans/C.dubliniensis Impressions: Chest X-Ray 03/29/17 12:40 IMPRESSION: NO ACUTE RADIOGRAPHIC FINDING IN THE CHEST. Abdomen/Pelvis CT 03/30/17 00:00 IMPRESSION: CT FINDINGS COMPATIBLE WITH DISTAL SMALL BOWEL OBSTRUCTION WITH TRANSITION POINT SOMEWHAT DEEP IN THE PELVIS PRESUMABLY SECONDARY TO ADHESIONS GIVEN PRIOR SURGERIES. NO PNEUMATOSIS OR FREE AIR. ADDITIONAL CHRONIC CHANGES ABOVE. KUB X-Ray 04/01/17 00:00 IMPRESSION: Nasogastric tube is been removed. Persistent dilated small bowel loops in the mid abdomen, out of proportion to stomach and colon. Findings are worrisome for partial small bowel obstruction Small Bowel X-Ray 04/02/17 00:00 IMPRESSION: No small bowel obstruction Assessment & Plan - Diagnosis (1) Small bowel obstruction due to adhesions Is this a current diagnosis for this admission?: Yes (2) Chronic obstructive pulmonary disease Qualifiers: COPD type: unspecified COPD Qualified Code(s): J44.9 - Chronic obstructive pulmonary disease, unspecified Is this a current diagnosis for this admission?: Yes (3) Hypertension Qualifiers: Hypertension type: essential hypertension Qualified Code(s): I10 - Essential (primary) hypertension Is this a current diagnosis for this admission?: Yes (4) Vomiting Qualifiers: Vomiting type: bilious vomiting Nausea presence: with nausea Qualified Code(s): R11.14 - Bilious vomiting Is this a current diagnosis for this admission?: Yes
[2017-04-05] MEDS: TRAZODONE HCL 50 MG TABLET PO SCH (22:01)
[2017-04-06] MEDS: GABAPENTIN 400 MG CAPSULE PO SCH ×2 (05:07→13:33)
[2017-04-06 07:23] LABS: ANION GAP 13 (5-19); BLOOD UREA NITROGEN 7 mg/dL (7-20); CALCIUM 8.7 mg/dL (8.4-10.2); CARBON DIOXIDE 24 mmol/L (22-30); CHLORIDE 108 mmol/L (98-107); CREATININE RESULT 0.74 mg/dL (0.52-1.25); GLUCOSE 87 mg/dL (75-110); POTASSIUM 3.3 mmol/L (3.6-5.0); SODIUM 145.4 mmol/L (137-145)
[2017-04-06] MEDS ORDERED: POTASSI CL 20 MEQ/50 ML RIDER 20 MEQ/50 ML RTUPB IV ONE (09:00)
[2017-04-06] MEDS: LISINOPRIL 10 MG TABLET PO SCH (09:52)
[2017-04-06] MEDS: MELOXICAM 7.5 MG TABLET PO SCH (09:52)
[2017-04-06] MEDS: CIPROFLOXACIN HCL 500 MG TABLET PO SCH (09:52)
[2017-04-06] MEDS: LANSOPRAZOLE 30 MG TAB.RAP.DR PO SCH (09:52)
[2017-04-06] MEDS: HYDROCHLOROTHIAZIDE 12.5 MG CAPSULE PO SCH (09:52)
[2017-04-06] MEDS: BUPROPION HCL 75 MG TABLET PO SCH (09:52)
[2017-04-06] MEDS: FLUTICASONE NASAL SPRAY 50 MCG/SPRY 120 SPRAY/16 GM NASL SCH (09:52)
[2017-04-06] MEDS: BUSPIRONE HCL 10 MG TABLET PO SCH (09:52)
--- NOTE | 2017-04-06 17:55 | PDOC DISCHARGE SUMMARY ---
General - Admit/Disc Date/PCP Admission Date/Primary Care Provider: 03/31/17 15:16 OSBALDO HOBSON MD Discharge Date: 04/06/17 - Discharge Diagnosis (1) Small bowel obstruction due to adhesions Is this a current diagnosis for this admission?: Yes (2) Chronic obstructive pulmonary disease Is this a current diagnosis for this admission?: Yes (3) Hypertension Is this a current diagnosis for this admission?: Yes (4) Vomiting Is this a current diagnosis for this admission?: Yes (5) Hypokalemia Is this a current diagnosis for this admission?: Yes - Additional Information Resuscitation Status: Full Code Home Medications: Acetaminophen with Codeine [Acetaminophen-Cod #4 Tablet] 1 tab PO Q8H PRN Bupropion HCl [Bupropion HCl Sr] 150 mg PO BID 03/29/17 Buspirone HCl [Buspar 30 mg Tablet] 1 tab PO BID 03/29/17 Fluticasone Propionate [Flonase Allergy Relief] 2 sprays NASL DAILY 03/29/17 Gabapentin 800 mg PO TID 03/29/17 Lisinopril/Hydrochlorothiazide [Lisinopril-Hctz 20-12.5 mg Tab] 1 each PO BID Meloxicam 7.5 mg PO DAILY 03/29/17 Omeprazole 20 mg PO DAILY 03/29/17 Trazodone HCl 100 mg PO QHS 03/29/17 History of Present Illness History of Present Illness: MYRTLE THAPA is a 61 year old female, She has a history of chronic obstructive pulmonary disease, tobacco abuse, she came to the emergency room for evaluation of abdominal pain, diarrhea, vomiting also chest pain. She continued to smoke cigarettes, she was seen on the floor, she has abdominal distention associated with abdominal pain. She denies passage of black tarry stool, there is no hematochezia, there is no vomiting blood. A CAT scan of the abdomen and pelvis with IV contrast was done for evaluation of the abdominal distention, it showed fluid distended loops of small bowel with transition point deep within the pelvis with collapsed loops distally compatible with obstruction. The CAT scan suggest mechanical obstruction probably due to adhesions, nasogastric tube be inserted and consultation from surgery to be ordered Hospital Course Hospital Course: Patient was admitted for the management of small bowel obstruction, she presented with vomiting and loose stool the CAT scan of the abdomen and pelvis that was done with contrast showed distended loops of small bowel with transition point deep within the pelvis with collapsed loops distally compatible with obstruction. A nasogastric tube was inserted but patient pulled the nasogastric tube, she refused to be managed with nasogastric tube she was seen by the surgeon, conservative approach was advised. She had series of KUBs and ultimately small bowel series that showed no small bowel obstruction. The small bowel obstruction is thought to be secondary to adhesions Physical Exam Vital Signs: Temp Pulse Resp BP Pulse Ox 97.6 F 55 L 16 118/37 L 100 04/06/17 15:18 04/06/17 15:18 04/06/17 15:18 04/06/17 15:18 04/06/17 15:18 Intake & Output 04/05/17 04/06/17 04/07/17 06:59 06:59 06:59 Intake Total 3745 3664 Balance 3745 3664 Weight 76.9 kg 78.5 kg General appearance: PRESENT: no acute distress, well-developed, well-nourished Head exam: PRESENT: atraumatic, normocephalic Eye exam: PRESENT: conjunctiva pink, EOMI, PERRLA Ear exam: PRESENT: normal external ear exam Mouth exam: PRESENT: moist, tongue midline Neck exam: PRESENT: full ROM Respiratory exam: PRESENT: clear to auscultation radha Cardiovascular exam: PRESENT: RRR, +S1, +S2 Vascular exam: PRESENT: normal capillary refill GI/Abdominal exam: PRESENT: normal bowel sounds, soft Rectal exam: PRESENT: deferred Neurological exam: PRESENT: alert, awake, oriented to person, oriented to place , oriented to time, oriented to situation, CN II-XII grossly intact Psychiatric exam: PRESENT: appropriate affect, normal mood Skin exam: PRESENT: dry, intact, warm Results Laboratory Results: 04/05/17 13:38 04/06/17 06:15 04/06/17 06:15 Sodium 145.4 H Potassium 3.3 L Chloride 108 H Carbon Dioxide 24 Anion Gap 13 BUN 7 Creatinine 0.74 Est GFR ( Amer) > 60 Est GFR (Non-Af Amer) > 60 Glucose 87 Calcium 8.7 04/02/17 14:00 Stool - Stool Ova and Parasite Concentrate Exam - Final 04/02/17 14:00 Stool - Stool Ova and Parasites - Final Impressions: Chest X-Ray 03/29/17 12:40 IMPRESSION: NO ACUTE RADIOGRAPHIC FINDING IN THE CHEST. Abdomen/Pelvis CT 03/30/17 00:00 IMPRESSION: CT FINDINGS COMPATIBLE WITH DISTAL SMALL BOWEL OBSTRUCTION WITH TRANSITION POINT SOMEWHAT DEEP IN THE PELVIS PRESUMABLY SECONDARY TO ADHESIONS GIVEN PRIOR SURGERIES. NO PNEUMATOSIS OR FREE AIR. ADDITIONAL CHRONIC CHANGES ABOVE. KUB X-Ray 04/01/17 00:00 IMPRESSION: Nasogastric tube is been removed. Persistent dilated small bowel loops in the mid abdomen, out of proportion to stomach and colon. Findings are worrisome for partial small bowel obstruction Small Bowel X-Ray 04/02/17 00:00 IMPRESSION: No small bowel obstruction
[2017-04-06 18:14] VITALS: BP 131/51
== END 2017-04-06 20:25 | disposition home or self-care (01) | DRG 390 ==
LOC: ER 12:38 → EH 16:44 → UNDOADMOB 16:44 → 5 18:07 → EH 18:07 → 5 18:37 → OBSVTOIN 03-31 15:16
PROVIDERS: ADMIT Internal Medicine; ATTEND Internal Medicine
PROC: 0D9670Z Drainage of Stomach with Drainage Device, Via Natural or Artificial Opening (ICD-10-PCS; principal; 2017-03-31)
PROC: 3E0234Z Introduction of Serum, Toxoid and Vaccine into Muscle, Percutaneous Approach (ICD-10-PCS; 2017-04-05)
DX: K56.50 Intestinal adhesions [bands], unspecified as to partial versus complete obstruction (principal); J44.9 Chronic obstructive pulmonary disease, unspecified; I10 Essential (primary) hypertension; E78.00 Pure hypercholesterolemia, unspecified; R11.14 Bilious vomiting; E87.6 Hypokalemia; I25.10 Atherosclerotic heart disease of native coronary artery without angina pectoris; M19.90 Unspecified osteoarthritis, unspecified site; F32.9 Major depressive disorder, single episode, unspecified; F17.210 Nicotine dependence, cigarettes, uncomplicated; Z23 Encounter for immunization; Z79.899 Other long term (current) drug therapy; Z88.6 Allergy status to analgesic agent
CPT/HCPCS: 36415; 71010; 74000; 74177; 74250; 80048; 80053; 80307; 81001; 82550; 82553; 83690; 83735; 84484; 85025; 87045; 87177; 87205; 87493; 89055; 90686; 93005; 93010; 96360; 96361; 99285; G0378; J2405; J3480; J3490; J7030; S0119

== ENCOUNTER → 2017-05-14 | Outpatient (CLI) | payer MEDICARE ==
--- NOTE | 2017-05-14 13:05 | RADIOLOGY REPORT (SQ) ---
EXAM DESCRIPTION: KUB COMPLETED DATE/TIME: 05/14/2017 11:23 am REASON FOR STUDY: INTESTNL ADHESIONS, UNSP TO PARTIAL VERSUS COMPLETE OBST K56.50 INTESTNL ADHES IONS, UNSP TO PARTIAL VERSUS COMPLET COMPARISON: Abdominal films 03/31/2017, 04/01/2017, Gastrografin small bowel study 04/02/2017 CT abdomen pelvis 03/30/2017 NUMBER OF VIEWS: One view. TECHNIQUE: Supine radiographic image of the abdomen acquired. LIMITATIONS: None. FINDINGS: BOWEL GAS PATTERN: Decrease in distention of small bowel loops as compared to 04/02/2017. Moderate stool in the ascending and transverse colon. CALCIFICATIONS: Calcifications of the right and left renal vickie likely vascular SOFT TISSUES: No gross mass or suggestion of organomegaly. HARDWARE: Lower lumbar fusion. Clips right upper quadrant post cholecystectomy. Left iliac artery s tents BONES: Degenerative changes lumbar spine OTHER: No other significant finding. IMPRESSION: Normal bowel gas pattern on today's KUB. TECHNICAL DOCUMENTATION: JOB ID: [id number] [employer]- All Rights Reserved
== END ==
LOC: OD 11:06
PROVIDERS: ATTEND Internal Medicine
DX: K56.50 Intestinal adhesions [bands], unspecified as to partial versus complete obstruction (principal)
CPT/HCPCS: 74000

== ENCOUNTER → 2018-08-04 | Outpatient (CLI) | payer MEDICARE ==
--- NOTE | 2018-08-04 12:46 | RADIOLOGY REPORT (SQ) ---
EXAM DESCRIPTION: CTA ABD AORTA AND EXTREMITY COMPLETED DATE/TIME: 08/04/2018 10:00 am REASON FOR STUDY: PVD (I73.9) I73.9 PERIPHERAL VASCULAR DISEASE, UNSPECIFIED COMPARISON: None. TECHNIQUE: CT scan of the body and lower extremities performed with intravenous contrast using helic al scanning technique with dynamic intravenous contrast injection. Images reviewed with lung, soft ti ssue, and bone windows. Reconstructed coronal and sagittal MPR images reviewed. All images stored on PACS. Advanced 3D imaging as volume-rendering, MIPs, SSD performed? yes All CT scanners at this facility use dose modulation, iterative reconstruction, and/or weight based d osing when appropriate to reduce radiation dose to as low as reasonably achievable (ALARA). [facility]: Dose Right [facility]: CareDose [facility]: Dose Right [facility]: Teradose 4D [facility]: Navegg CONTRAST TYPE AND DOSE: contrast/concentration: Isovue 350.00 mg/ml; Total Contrast Delivered: 100.0 ml; Total Saline Delivered: 100.0 ml RENAL FUNCTION: Creatinine 1.1. LIMITATIONS: None. FINDINGS: AORTA AND VESSELS: No aneurysm. No dissection. Extensive vascular calcifications. No occ lusions. Patent stent in the left common iliac artery and in the left external iliac artery. Scatte red calcified plaques throughout the vessels. LIVER: Partially visualized. No masses or dilated ducts. SPLEEN: Partially visualized. No focal lesions. PANCREAS: Not visualized. GALLBLADDER: Surgically absent. ADRENAL GLANDS: Not visualized. RIGHT KIDNEY AND URETER: Partially visualized. No mass, calculi or urinary tract obstruction. LEFT KIDNEY AND URETER: Partially visualized. No mass, calculi or urinary tract obstruction. RETROPERITONEUM: No retroperitoneal adenopathy, hemorrhage or masses. BOWEL AND PERITONEAL CAVITY: No masses or inflammatory changes. No free fluid or peritoneal masses. APPENDIX: Not visualized. ABDOMINAL WALL: No masses. No hernias. BONY STRUCTURES: No significant or acute findings. Hardware in the lumbar spine. 3-D IMAGING: Confirms the above findings. OTHER: No other significant finding. LOWER EXTREMITIES: RIGHT LEG: FEMORAL ARTERIES: Scattered calcified plaque. No occlusions or high-grade stenoses. POPLITEAL ARTERY: No aneurysm. No occlusions or significant stenoses. TIBIOPERONEAL TRUNK AND RUNOFF VESSELS: No occlusions or significant stenoses. Three-vessel runoff t o the ankle. OTHER: No other significant finding. LEFT LEG: FEMORAL ARTERIES: Scattered calcified plaques. No occlusions or high-grade stenoses. POPLITEAL ARTERY: No aneurysm. No occlusions or significant stenoses. TIBIOPERONEAL TRUNK AND RUNOFF VESSELS: No occlusions or significant stenoses. Three-vessel runoff t o the ankle. OTHER: No other significant finding. IMPRESSION: NO AORTIC ANEURYSM OR DISSECTION. PATENT STENTS IN THE LEFT COMMON ILIAC ARTERY AND IN THE LEFT EXTERNAL ILIAC ARTERY. EXTENSIVE VASCULAR CALCIFICATIONS WITH SCATTERED PLAQUES. NO HIGH-G RADE STENOSES AND NO OCCLUDED VESSELS. THREE-VESSEL RUNOFF TO THE ANKLE IN BOTH LOWER EXTREMITIES. TECHNICAL DOCUMENTATION: JOB ID: [id number] Quality ID # [id number]: Final reports with documentation of one or more dose reduction techniques (e.g., Au tomated exposure control, adjustment of the mA and/or kV according to patient size, use of iterative reconstruction technique) 2010 [employer]- All Rights Reserved Reading location - IP/workstation name: [email or web address]
== END ==
LOC: RAD 09:11
PROVIDERS: ATTEND Internal Medicine
DX: I73.9 Peripheral vascular disease, unspecified (principal)
CPT/HCPCS: 75635; 82565

== ENCOUNTER 2018-11-16 10:08 | Inpatient (IN) | payer MEDICARE ==
[2018-11-16] MEDS ORDERED: IPRATROPIUM/ALBUTEROL 0.5-2.5 MG/3 ML AMPUL NEB ONE ×2 (10:13)
[2018-11-16] MEDS ORDERED: NORMAL SALINE 1000 ML 1,000 ML IV ONE ×3 (10:24→12:18)
[2018-11-16] MEDS ORDERED: ONDANSETRON HCL INJ/PF 4 MG/2 ML SDV IV ONE (10:25)
--- NOTE | 2018-11-16 10:32 | ER Document Report ---
ED General - General Chief Complaint: Irregular Pulse Stated Complaint: ELEVATED HEART RATE Time Seen by Provider: 11/16/18 10:20 Mode of Arrival: Medic Information source: Patient, Emergency Med Personnel, [facility] Records Notes: 63-year-old female with coronary artery disease, hyperlipidemia, COPD (continues to smoke 15 cigarettes/day) peripheral vascular disease history of cardiac stents presents via EMS with report of SVT, nausea, vomiting and diarrhea. EMS reports that upon their arrival patient had a heart rate between 170 and 230. Patient reports that she began having numerous episodes of vomiting and diarrhea yesterday. She denies any blood in her stool or emesis. Patient is also complaining of generalized abdominal pain. Patient did receive adenosine 30 mg prior to arrival through a 22-gauge needle in the left foot. At the time patient arrived she was in sinus tachycardia at a rate of 110. I do not believe the adenosine would have been effective in the location that the IV was in. Patient denies chest pain but admits to having palpitations since yesterday. She denies any history of PE, DVT, leg swelling, recent surgery, estrogen use. Patient does report a more productive cough. TRAVEL OUTSIDE OF THE [place] IN LAST 30 DAYS: No - HPI Onset: Yesterday Onset/Duration: Gradual, Persistent Quality of pain: Cramping - Cramping abdominal pain Severity: Mild Pain Level: 1 Associated symptoms: Diarrhea, Nausea, Vomiting, Weakness, Other - Palpitations Exacerbated by: Denies Relieved by: Denies Similar symptoms previously: Yes Recently seen / treated by doctor: No - Related Data Allergies/Adverse Reactions: acetaminophen [From Tylenol] Allergy (Verified 11/16/18 10:23) morphine Adverse Reaction (Severe, Verified 11/16/18 10:23) Hypotension oxycodone [From Percocet] Adverse Reaction (Intermediate, Verified 11/16/18 10:23) Nausea Past Medical History - General Information source: Patient, Emergency Med Personnel, [facility] Records - Social History Smoking Status: Current Every Day Smoker Cigarette use (# per day): Yes - 15 Smoking Education Provided: Yes - Smoking cessation counseling was provided for 4 minutes at the bedside Frequency of alcohol use: None Drug Abuse: None Lives with: Spouse/Significant other Family History: Reviewed & Not Pertinent Patient has suicidal ideation: No Patient has homicidal ideation: No - Past Medical History Cardiac Medical History: Reports: Hx Coronary Artery Disease, Hx Hypercholesterolemia Pulmonary Medical History: Reports: Hx COPD Renal/ Medical History: Denies: Hx Peritoneal Dialysis Musculoskeletal Medical History: Reports Hx Arthritis Psychiatric Medical History: Reports: Hx Anxiety, Hx Depression Past Surgical History: Reports: Hx Orthopedic Surgery, Hx Vascular Surgery - B Femoral stents, Other - Stents in her right large 20 - Immunizations Hx Diphtheria, Pertussis, Tetanus Vaccination: Yes Review of Systems - Review of Systems Notes: REVIEW OF SYSTEMS: CONSTITUTIONAL : Denies fever, chills, or sweats. Denies recent illness. Denies weight loss, recent hospitalizations. EENT: Denies visual changes, eye pain. Denies sore throat, oral lesions, difficulty swallowing. CARDIOVASCULAR: Denies chest pain. + palpitations. Denies lower extremity edema. RESPIRATORY: + cough. +shortness of breath, denies wheezing. GASTROINTESTINAL: Denies abdominal distention. + nausea, vomiting, diarrhea. Denies blood in vomitus, stools, or per rectum. Denies black, tarry stools. Denies constipation. GENITOURINARY: Denies difficulty urinating, painful urination, frequency, blood in urine, or vaginal discharge. MUSCULOSKELETAL: Denies back or neck pain or stiffness. Denies joint pain or swelling. SKIN: Denies rash, lesions or sores. HEMATOLOGIC : Denies easy bruising or bleeding. LYMPHATIC: Denies swollen glands. NEUROLOGICAL: Denies confusion or altered mental status. Denies loss of consciousness. Denies dizziness or lightheadedness. Denies headache. Denies weakness or paralysis. Denies problems difficulty with ambulation, slurred speech. Denies sensory loss, numbness, or tingling. Denies seizures. PSYCHIATRIC: Denies anxiety or stress. Denies depression, suicidal ideation, or homicidal ideation. Denies visual or auditory hallucinations. Physical Exam - Vital signs Vitals: Temp Resp BP Pulse Ox 97.7 F 23 H 129/52 H 85 L 11/16/18 10:10 11/16/18 10:10 11/16/18 10:10 11/16/18 10:10 - Notes Notes: PHYSICAL EXAMINATION: GENERAL: Ill-appearing, somnolent, covered in vomit HEAD: Atraumatic, normocephalic. EYES: Pupils equal round and reactive to light, extraocular movements intact, conjunctiva are normal. ENT: Nares patent, oropharynx clear without exudates. Moist mucous membranes. NECK: Normal range of motion, supple without lymphadenopathy LUNGS: Breath sounds clear to auscultation bilaterally and equal. No wheezes rales or rhonchi. HEART: Tachycardic, regular rhythm ABDOMEN: Soft, nontender, nondistended abdomen. No guarding, no rebound. No masses appreciated. Female : deferred Musculoskeletal: Normal range of motion, no pitting or edema. No cyanosis. NEUROLOGICAL: Cranial nerves grossly intact. Slowed speech normal sensory, motor exams PSYCH: Normal mood, normal affect. SKIN: Warm, Dry, normal turgor, no rashes or lesions noted. Course - Re-evaluation Re-evalutation: Temp Pulse Resp BP Pulse Ox 97.7 F 20 129/52 H 88 L 11/16/18 10:10 11/16/18 10:11 11/16/18 10:10 11/16/18 10:11 Laboratory 11/16/18 11/16/18 11/16/18 10:25 10:25 10:25 WBC 26.9 H RBC 5.15 Hgb 15.8 H Hct 46.1 MCV 90 MCH 30.7 MCHC 34.3 RDW 13.4 Plt Count 467 H Total Counted 100 Seg Neutrophils % Not Reportable Seg Neuts % (Manual) 84 H Band Neutrophils % 4 Lymphocytes % Not Reportable Lymphocytes % (Manual) 7 L Monocytes % Not Reportable Monocytes % (Manual) 5 Eosinophils % Not Reportable Eosinophils % (Manual) 0 Basophils % Not Reportable Basophils % (Manual) 0 Absolute Neutrophils Not Reportable Abs Neuts (Manual) 23.7 H Absolute Lymphocytes Not Reportable Abs Lymphs (Manual) 1.9 Absolute Monocytes Not Reportable Abs Monocytes (Manual) 1.3 Absolute Eosinophils Not Reportable Absolute Eos (Manual) 0.0 Absolute Basophils Not Reportable Abs Basophils (Manual) 0.0 Clumped Platelets PRESENT Large Platelets PRESENT Platelet Comment INCREASED PT 14.3 INR 1.11 D-Dimer Carbonic Acid HCO3/H2CO3 Ratio ABG pH ABG pCO2 ABG pO2 ABG HCO3 ABG Total CO2 ABG O2 Saturation ABG Base Excess VBG pH VBG pCO2 VBG HCO3 VBG Base Excess FiO2 Sodium 136.3 L Potassium 4.8 Chloride 91 L Carbon Dioxide 24 Anion Gap 21 H BUN 35 H Creatinine 2.83 H Est GFR ( Amer) 20 L Est GFR (Non-Af Amer) 17 L Glucose 135 H POC Glucose Lactic Acid Calcium 10.7 H Phosphorus 6.3 H Magnesium 2.0 Total Bilirubin 1.3 Direct Bilirubin 0.6 H Neonat Total Bilirubin Not Reportable Neonat Direct Bilirubin Not Reportable Neonat Indirect Bili Not Reportable AST 25 ALT 17 Alkaline Phosphatase 109 Troponin I Total Protein 9.2 H Albumin 5.4 H Urine Color Urine Appearance Urine pH Ur Specific [place] Urine Protein Urine Glucose (UA) Urine Ketones Urine Blood Urine Nitrite Urine Bilirubin Urine Urobilinogen Ur Leukocyte Esterase Urine WBC (Auto) Urine RBC (Auto) U Hyaline Cast (Auto) Squamous Epi Cells Auto Urine Mucus (Auto) Urine Ascorbic Acid Urine Opiates Screen Urine Methadone Screen Ur Barbiturates Screen Ur Phencyclidine Scrn Ur Amphetamines Screen U Benzodiazepines Scrn Urine Cocaine Screen U Marijuana (THC) Screen 11/16/18 11/16/18 11/16/18 10:25 10:25 10:25 WBC RBC Hgb Hct MCV MCH MCHC RDW Plt Count Total Counted Seg Neutrophils % Seg Neuts % (Manual) Band Neutrophils % Lymphocytes % Lymphocytes % (Manual) Monocytes % Monocytes % (Manual) Eosinophils % Eosinophils % (Manual) Basophils % Basophils % (Manual) Absolute Neutrophils Abs Neuts (Manual) Absolute Lymphocytes Abs Lymphs (Manual) Absolute Monocytes Abs Monocytes (Manual) Absolute Eosinophils Absolute Eos (Manual) Absolute Basophils Abs Basophils (Manual) Clumped Platelets Large Platelets Platelet Comment PT INR D-Dimer 2.71 H Carbonic Acid HCO3/H2CO3 Ratio ABG pH ABG pCO2 ABG pO2 ABG HCO3 ABG Total CO2 ABG O2 Saturation ABG Base Excess VBG pH 7.39 VBG pCO2 46.4 VBG HCO3 27.2 VBG Base Excess 1.5 FiO2 Sodium Potassium Chloride Carbon Dioxide Anion Gap BUN Creatinine Est GFR ( Amer) Est GFR (Non-Af Amer) Glucose POC Glucose Lactic Acid Calcium Phosphorus Magnesium Total Bilirubin Direct Bilirubin Neonat Total Bilirubin Neonat Direct Bilirubin Neonat Indirect Bili AST ALT Alkaline Phosphatase Troponin I < 0.012 Total Protein Albumin Urine Color Urine Appearance Urine pH Ur Specific [place] Urine Protein Urine Glucose (UA) Urine Ketones Urine Blood Urine Nitrite Urine Bilirubin Urine Urobilinogen Ur Leukocyte Esterase Urine WBC (Auto) Urine RBC (Auto) U Hyaline Cast (Auto) Squamous Epi Cells Auto Urine Mucus (Auto) Urine Ascorbic Acid Urine Opiates Screen Urine Methadone Screen Ur Barbiturates Screen Ur Phencyclidine Scrn Ur Amphetamines Screen U Benzodiazepines Scrn Urine Cocaine Screen U Marijuana (THC) Screen 11/16/18 11/16/18 11/16/18 10:42 10:45 10:59 WBC RBC Hgb Hct MCV MCH MCHC RDW Plt Count Total Counted Seg Neutrophils % Seg Neuts % (Manual) Band Neutrophils % Lymphocytes % Lymphocytes % (Manual) Monocytes % Monocytes % (Manual) Eosinophils % Eosinophils % (Manual) Basophils % Basophils % (Manual) Absolute Neutrophils Abs Neuts (Manual) Absolute Lymphocytes Abs Lymphs (Manual) Absolute Monocytes Abs Monocytes (Manual) Absolute Eosinophils Absolute Eos (Manual) Absolute Basophils Abs Basophils (Manual) Clumped Platelets Large Platelets Platelet Comment PT INR D-Dimer Carbonic Acid 1.02 L HCO3/H2CO3 Ratio 21:1 ABG pH 7.44 ABG pCO2 33.8 L ABG pO2 49.2 L ABG HCO3 22.4 ABG Total CO2 23.4 ABG O2 Saturation 86.5 L ABG Base Excess -0.9 VBG pH VBG pCO2 VBG HCO3 VBG Base Excess FiO2 5L Sodium Potassium Chloride Carbon Dioxide Anion Gap BUN Creatinine Est GFR ( Amer) Est GFR (Non-Af Amer) Glucose POC Glucose 133 H Lactic Acid 2.9 H Calcium Phosphorus Magnesium Total Bilirubin Direct Bilirubin Neonat Total Bilirubin Neonat Direct Bilirubin Neonat Indirect Bili AST ALT Alkaline Phosphatase Troponin I Total Protein Albumin Urine Color Urine Appearance Urine pH Ur Specific [place] Urine Protein Urine Glucose (UA) Urine Ketones Urine Blood Urine Nitrite Urine Bilirubin Urine Urobilinogen Ur Leukocyte Esterase Urine WBC (Auto) Urine RBC (Auto) U Hyaline Cast (Auto) Squamous Epi Cells Auto Urine Mucus (Auto) Urine Ascorbic Acid Urine Opiates Screen Urine Methadone Screen Ur Barbiturates Screen Ur Phencyclidine Scrn Ur Amphetamines Screen U Benzodiazepines Scrn Urine Cocaine Screen U Marijuana (THC) Screen 11/16/18 11/16/18 11:08 11:08 WBC RBC Hgb Hct MCV MCH MCHC RDW Plt Count Total Counted Seg Neutrophils % Seg Neuts % (Manual) Band Neutrophils % Lymphocytes % Lymphocytes % (Manual) Monocytes % Monocytes % (Manual) Eosinophils % Eosinophils % (Manual) Basophils % Basophils % (Manual) Absolute Neutrophils Abs Neuts (Manual) Absolute Lymphocytes Abs Lymphs (Manual) Absolute Monocytes Abs Monocytes (Manual) Absolute Eosinophils Absolute Eos (Manual) Absolute Basophils Abs Basophils (Manual) Clumped Platelets Large Platelets Platelet Comment PT INR D-Dimer Carbonic Acid HCO3/H2CO3 Ratio ABG pH ABG pCO2 ABG pO2 ABG HCO3 ABG Total CO2 ABG O2 Saturation ABG Base Excess VBG pH VBG pCO2 VBG HCO3 VBG Base Excess FiO2 Sodium Potassium Chloride Carbon Dioxide Anion Gap BUN Creatinine Est GFR ( Amer) Est GFR (Non-Af Amer) Glucose POC Glucose Lactic Acid Calcium Phosphorus Magnesium Total Bilirubin Direct Bilirubin Neonat Total Bilirubin Neonat Direct Bilirubin Neonat Indirect Bili AST ALT Alkaline Phosphatase Troponin I Total Protein Albumin Urine Color YELLOW Urine Appearance CLEAR Urine pH 5.0 Ur Specific [place] 1.024 Urine Protein NEGATIVE Urine Glucose (UA) NEGATIVE Urine Ketones NEGATIVE Urine Blood NEGATIVE Urine Nitrite NEGATIVE Urine Bilirubin NEGATIVE Urine Urobilinogen NEGATIVE Ur Leukocyte Esterase NEGATIVE Urine WBC (Auto) 1 Urine RBC (Auto) 1 U Hyaline Cast (Auto) 1 Squamous Epi Cells Auto 1 Urine Mucus (Auto) RARE Urine Ascorbic Acid NEGATIVE Urine Opiates Screen UNCONFIRMED POSITIVE Urine Methadone Screen NEGATIVE Ur Barbiturates Screen NEGATIVE Ur Phencyclidine Scrn NEGATIVE Ur Amphetamines Screen NEGATIVE U Benzodiazepines Scrn NEGATIVE Urine Cocaine Screen NEGATIVE U Marijuana (THC) Screen NEGATIVE Chest CT 11/16/18 00:00 IMPRESSION: Mild lower lobe airspace disease, right more than left. Atelectasis versus pneumonia. There is fluid in the esophagus. The stomach is distended with fluid. There is fluid in proximal small bowel loops. Is there any concern for small bowel obstruction? Chest X-Ray 11/16/18 10:24 IMPRESSION: NO ACUTE RADIOGRAPHIC FINDING IN THE CHEST. Lung Scan-VQ DE 11/16/18 11:23 IMPRESSION: No pulmonary perfusion defect identified. Temp Pulse Resp BP Pulse Ox 97.6 F 20 121/57 L 96 11/16/18 15:31 11/16/18 15:31 11/16/18 15:31 11/16/18 15:31 11/16/18 10:28 63-year-old female with a history of coronary artery disease, hyperlipidemia, COPD presented via EMS as emergency traffic for reported SVT. EMS reports that upon their arrival patient's heart rate was 170 and got upwards of 230. A 22- gauge Angiocath was placed into the left foot and a total of 18 mg of Ativan adenosine was administered. EMS reports that the patient converted. Unlikely from the medication given in her foot. Patient does report that she did begin experiencing palpitations, nausea, vomiting and diarrhea yesterday. She does continue to smoke despite her diagnosis of COPD. Patient was found to be hypoxic and initially placed on a nonrebreather until breathing treatments can be administered. Bedside ultrasound was performed to assess for pericardial effusion which was absent but patient's right ventricle does appear thickened and appears to be almost completely collapsing. Patient will be assessed for pulmonary embolism. Patient is IVC was also found to be small and collapsible so she was administered IV fluids. Zofran was also administered for her nausea. EKG was obtained which showed the patient to be in sinus tachycardia. 11/16/18 17:56 Patient was placed on BiPAP and on reevaluation does seem to be more awake and alert and states that she is feeling much better. VQ scan did not show evidence of a PE. CBC does show a leukocytosis of 29. CMP does show a creatinine of 2.83. Patient's lactate is 2.9. Patient has been accepted by Dr. Ferguson to the [facility]. 11/16/18 17:59 - Vital Signs Vital signs: Temp Pulse Resp BP Pulse Ox 97.6 F 20 121/57 L 96 11/16/18 15:31 11/16/18 15:31 11/16/18 15:31 11/16/18 15:31 - Laboratory Result Diagrams: 11/16/18 10:25 11/16/18 10:25 Laboratory results interpreted by me: 11/16/18 11/16/18 11/16/18 10:25 10:25 10:25 WBC 26.9 H Hgb 15.8 H Plt Count 467 H Seg Neuts % (Manual) 84 H Lymphocytes % (Manual) 7 L Abs Neuts (Manual) 23.7 H D-Dimer 2.71 H Carbonic Acid ABG pCO2 ABG pO2 ABG O2 Saturation Sodium 136.3 L Chloride 91 L Anion Gap 21 H BUN 35 H Creatinine 2.83 H Est GFR ( Amer) 20 L Est GFR (Non-Af Amer) 17 L Glucose 135 H POC Glucose Lactic Acid Calcium 10.7 H Phosphorus 6.3 H Direct Bilirubin 0.6 H Total Protein 9.2 H Albumin 5.4 H 11/16/18 11/16/18 11/16/18 10:42 10:45 10:59 WBC Hgb Plt Count Seg Neuts % (Manual) Lymphocytes % (Manual) Abs Neuts (Manual) D-Dimer Carbonic Acid 1.02 L ABG pCO2 33.8 L ABG pO2 49.2 L ABG O2 Saturation 86.5 L Sodium Chloride Anion Gap BUN Creatinine Est GFR ( Amer) Est GFR (Non-Af Amer) Glucose POC Glucose 133 H Lactic Acid 2.9 H Calcium Phosphorus Direct Bilirubin Total Protein Albumin - Diagnostic Test Radiology reviewed: Image reviewed, Reports reviewed - EKG Interpretation by Me EKG shows normal: Sinus rhythm Rate: Tachycardia Rhythm: NSR When compared to previous EKG there are: No significant change Critical Care Note - Critical Care Note Total time excluding time spent on procedures (mins): 40 - Minutes of critical care time spent in direct contact evaluating and reevaluating the patient, treating symptoms, reviewing labs and studies and speaking with family and consultants excluding any procedures Discharge - Discharge Clinical Impression: Respiratory distress, Hypoxia, Acute renal insufficiency, Dehydration, Vomiting and diarrhea Leukocytosis Qualifiers: Leukocytosis type: unspecified Qualified Code(s): D72.829 - Elevated white blood cell count, unspecified Vomiting Qualifiers: Vomiting type: unspecified Vomiting Intractability: non-intractable Nausea presence: with nausea Qualified Code(s): R11.2 - Nausea with vomiting, unspecified Condition: Stable Disposition: ADMITTED INPATIENT Admitting Provider: [facility] Unit Admitted: [facility]
[2018-11-16 10:45] LABS: HEMATOCRIT 46.1 % (36.0-47.0); HEMOGLOBIN 15.8 g/dL (12.0-15.5); MEAN CORPUSCULAR HEMOGLOBIN 30.7 pg (27.0-33.4); MEAN CORPUSCULAR HGB CONC 34.3 g/dL (32.0-36.0); MEAN CORPUSCULAR VOLUME 90 fl (80-97); RED BLOOD COUNT 5.15 10^6/uL (3.72-5.28); RED CELL DISTRIBUTION WIDTH 13.4 % (11.5-14.0); WHITE BLOOD COUNT 26.9 10^3/uL (4.0-10.5)
[2018-11-16 10:50] LABS: VENOUS BLOOD BASE EXCESS 1.5 mmol/L; VENOUS BLOOD HCO3 27.2 mmol/L (20-32); VENOUS BLOOD PCO2 46.4 mmHg (35-63); VENOUS BLOOD PH 7.39 (7.30-7.42)
[2018-11-16 10:53] LABS: INTERNATIONAL RATION (INR) 1.11; PROTHROMBIN TIME 14.3 SEC (11.4-15.4)
[2018-11-16] MEDS ORDERED: METOCLOPRAMIDE HCL INJ/PF 10 MG/2 ML SDV IV ONE (10:57)
--- NOTE | 2018-11-16 11:03 | RADIOLOGY REPORT (SQ) ---
EXAM DESCRIPTION: CHEST SINGLE VIEW COMPLETED DATE/TIME: 11/16/2018 10:51 am REASON FOR STUDY: sob COMPARISON: 07/25/2016 EXAM PARAMETERS: NUMBER OF VIEWS: One view. TECHNIQUE: Single frontal radiographic view of the chest acquired. RADIATION DOSE: NA LIMITATIONS: None. FINDINGS: LUNGS AND PLEURA: No opacities, masses or pneumothorax. No pleural effusion. MEDIASTINUM AND HILAR STRUCTURES: No masses. Contour normal. HEART AND VASCULAR STRUCTURES: Heart normal in size. Normal vasculature. BONES: No acute findings. HARDWARE: None in the chest. OTHER: No other significant finding. IMPRESSION: NO ACUTE RADIOGRAPHIC FINDING IN THE CHEST. TECHNICAL DOCUMENTATION: JOB ID: [id number] [employer]- All Rights Reserved Reading location - IP/workstation name: [email or web address]
[2018-11-16 11:07] LABS: ALANINE AMINOTRANSFERASE 17 U/L (9-52); ALBUMIN 5.4 g/dL (3.5-5.0); ALKALINE PHOSPHATASE 109 U/L (38-126); ASPARTATE AMINO TRANSFERASE 25 U/L (14-36); BILIRUBIN,DIRECT 0.6 mg/dL (0.0-0.4); BILIRUBIN,TOTAL 1.3 mg/dL (0.2-1.3); BLOOD UREA NITROGEN 35 mg/dL (7-20); CALCIUM 10.7 mg/dL (8.4-10.2); CARBON DIOXIDE 24 mmol/L (22-30); CHLORIDE 91 mmol/L (98-107); GLUCOSE 135 mg/dL (75-110); PHOSPHORUS 6.3 mg/dL (2.5-4.5); POTASSIUM 4.8 mmol/L (3.6-5.0); TOTAL PROTEIN 9.2 g/dL (6.3-8.2)
[2018-11-16 11:12] LABS: ABSOLUTE LYMPHOCYTES# (MANUAL) 1.9 10^3/uL (0.5-4.7); ABSOLUTE MONOCYTES # (MANUAL) 1.3 10^3/uL (0.1-1.4); BAND NEUTROPHILS % (MANUAL) 4 % (3-5); BASOPHILS % (MANUAL) 0 % (0-2); EOSINOPHILS % (MANUAL) 0 % (0-6); LYMPHOCYTES % (MANUAL) 7 % (13-45); MONOCYTES % (MANUAL) 5 % (3-13); SEGMENTED NEUTROPHILS % (MAN) 84 % (42-78); TOTAL CELLS COUNTED 100
[2018-11-16 11:13] LABS: PLATELET CLUMPS PRESENT; PLATELET COUNT 467 10^3/uL (150-450); PLATELET LARGE PRESENT
[2018-11-16 11:14] LABS: PLATELET COMMENT INCREASED
[2018-11-16 11:15] LABS: ANION GAP 21 (5-19); SODIUM 136.3 mmol/L (137-145)
[2018-11-16] MEDS ORDERED: CEFTRIAXONE 1 GM/D5W RTU 1 GM/50 ML RTUPB IV ONE (11:22)
[2018-11-16] MEDS ORDERED: ENOXAPARIN SODIUM INJ 80 MG/0.8 ML DISP.SYRIN SUBCUT ONE (11:23)
[2018-11-16 11:28] LABS: ARTERIAL BLOOD BASE EXCESS -0.9 mmol/L; ARTERIAL BLOOD H2CO3 1.02 mmol/L (1.05-1.35); ARTERIAL BLOOD HCO3 22.4 mmol/L (20-24); ARTERIAL BLOOD O2 SATURATION 86.5 % (94-98); ARTERIAL BLOOD PCO2 33.8 mmHg (35-45); ARTERIAL BLOOD PH 7.44 (7.35-7.45); ARTERIAL BLOOD PO2 49.2 mmHg (80-100); ARTERIAL BLOOD TOTAL CO2 23.4 mmol/L (21-25)
[2018-11-16 11:29] LABS: ARTERIAL BLOOD FIO2 5L
[2018-11-16 11:46] LABS: APPEARANCE,URINE CLEAR; BILIRUBIN,URINE NEGATIVE (NEGATIVE); GLUCOSE, URINE NEGATIVE (NEGATIVE); KETONES,URINE NEGATIVE (NEGATIVE); LEUKOCYTE ESTERASE,URINE NEGATIVE (NEGATIVE); NITRITE,URINE NEGATIVE (NEGATIVE); PROTEIN,URINE NEGATIVE (NEGATIVE); URINE SPECIFIC GRAVITY 1.024; UROBILINOGEN,URINE NEGATIVE mg/dL (<2.0)
[2018-11-16 11:47] LABS: COLOR,URINE YELLOW
[2018-11-16 12:12] LABS: URINE AMPHETAMINES SCREEN NEGATIVE; URINE BARBITURATES SCREEN NEGATIVE; URINE BENZODIAZEPINES SCREEN NEGATIVE; URINE COCAINE SCREEN NEGATIVE; URINE MARIJUANA (THC) SCREEN NEGATIVE; URINE METHADONE SCREEN NEGATIVE; URINE PHENCYCLIDINE SCREEN NEGATIVE
--- NOTE | 2018-11-16 13:50 | RADIOLOGY REPORT (SQ) ---
EXAM DESCRIPTION: NM LUNG PERFUSION SCAN COMPLETED DATE/TIME: 11/16/2018 12:51 pm REASON FOR STUDY: hypoxic tachy COMPARISON: Chest radiograph 11/16/2018 RADIONUCLIDE AND DOSE: 5.4 millicuries TC-99m MAA The route of agent administration: Intravenous TECHNIQUE: Eight views of the lungs acquired following injection of MAA. LIMITATIONS: None. FINDINGS: PERFUSION: Perfusion images with normal homogenous activity and no wedge-shaped or segment al defects. OTHER: No other significant finding. IMPRESSION: No pulmonary perfusion defect identified. TECHNICAL DOCUMENTATION: JOB ID: [id number] [employer]- All Rights Reserved Reading location - IP/workstation name: [email or web address]
--- NOTE | 2018-11-16 17:24 | RADIOLOGY REPORT (SQ) ---
EXAM DESCRIPTION: CT CHEST WITHOUT COMPLETED DATE/TIME: 11/16/2018 4:53 pm REASON FOR STUDY: acute hypoxemic respiratory failure COMPARISON: None. TECHNIQUE: CT scan performed of the chest without intravenous contrast. Images reviewed with lung, soft tissue and bone windows. Reconstructed coronal and sagittal MPR images reviewed. All images st ored on PACS. All CT scanners at this facility use dose modulation, iterative reconstruction, and/or weight based d osing when appropriate to reduce radiation dose to as low as reasonably achievable (ALARA). [facility]: Dose Right [facility]: CareDose [facility]: Dose Right [facility]: Teradose 4D [facility]: [employer] RADIATION DOSE: CT Rad equipment meets quality standard of care and radiation dose reduction techniq ues were employed. CTDIvol: 10.4 mGy. DLP: 431 mGy-cm. mGy. LIMITATIONS: No technical limitations. FINDINGS: LUNGS AND PLEURA: Minimal posterior changes seen in the lower lobes, right more than left. This may represent limited airspace disease versus pleural/parenchymal scarring. HILAR AND MEDIASTINAL STRUCTURES: No identified masses or abnormal nodes. No obvious aneurysm. Ther e is some fluid in the esophagus. HEART AND VASCULAR STRUCTURES: No aneurysm. No pericardial effusion. UPPER ABDOMEN: There is considerable fluid in the stomach and in small bowel loops. THYROID AND OTHER SOFT TISSUES: No masses. No adenopathy. BONES: No significant finding. HARDWARE: None in the chest. OTHER: No other significant findings. IMPRESSION: Mild lower lobe airspace disease, right more than left. Atelectasis versus pneumonia. There is fluid in the esophagus. The stomach is distended with fluid. There is fluid in proximal sm all bowel loops. Is there any concern for small bowel obstruction? TECHNICAL DOCUMENTATION: JOB ID: [id number] Quality ID # [id number]: Final reports with documentation of one or more dose reduction techniques (e.g., Au tomated exposure control, adjustment of the mA and/or kV according to patient size, use of iterative reconstruction technique) 2010 [employer]- All Rights Reserved Reading location - IP/workstation name: [email or web address]
[2018-11-16] MEDS ORDERED: PHARMACY COMMUNICATION ORDER MC NR (18:00)
[2018-11-16] MEDS: PIPERACILLIN SODIUM/TAZOBACTAM 4.5 GM in NORMAL SALINE 100 ML IV SCH ×2 (18:50→23:52)
[2018-11-16] MEDS: NORMAL SALINE 1000 ML 1,000 ML IV PRN (18:50)
--- NOTE | 2018-11-16 19:08 | RADIOLOGY REPORT (SQ) ---
EXAM DESCRIPTION: CT ABD/PELVIS NO ORAL OR IV COMPLETED DATE/TIME: 11/16/2018 6:28 pm REASON FOR STUDY: SMALL BOWEL OBSTRUCTION COMPARISON: 09/19/2014 TECHNIQUE: CT scan of the abdomen and pelvis performed without intravenous or oral contrast. Images reviewed with lung, soft tissue, and bone windows. Reconstructed coronal and sagittal MPR images revi ewed. All images stored on PACS. All CT scanners at this facility use dose modulation, iterative reconstruction, and/or weight based d osing when appropriate to reduce radiation dose to as low as reasonably achievable (ALARA). [facility]: Dose Right [facility]: CareDose [facility]: Dose Right [facility]: Teradose 4D [facility]: [employer] RADIATION DOSE: CT Rad equipment meets quality standard of care and radiation dose reduction techniq ues were employed. CTDIvol: 8.9 mGy. DLP: 478 mGy-cm.mGy. LIMITATIONS: None. FINDINGS: LOWER CHEST: Somewhat patchy opacification the right lung base posteriorly. Minimal mcgee es on the left. NON-CONTRASTED LIVER, SPLEEN, ADRENALS: Evaluation limited by lack of IV contrast. No identified sign ificant masses. PANCREAS: No masses. No peripancreatic inflammatory changes. GALLBLADDER: Surgically absent. RIGHT KIDNEY AND URETER: No suspicious masses. Assessment limited by lack of IV contrast. Small kurt al vascular calcifications. No hydronephrosis or hydroureter. LEFT KIDNEY AND URETER: No suspicious masses. Assessment limited by lack of IV contrast. Small barbara l vascular calcifications. No hydronephrosis or hydroureter. AORTA AND RETROPERITONEUM: Considerable fluid is present in the bowel. There is no evidence of bowel obstruction. No obvious bowel mass. BOWEL AND PERITONEAL CAVITY: No obvious masses or inflammatory changes. No free fluid. APPENDIX: Not identified. PELVIS, BLADDER, AND ABDOMINAL WALL:No abnormal masses. No free fluid. Bladder normal. BONES: Rods are present at L4-5 with screws through the pedicles and disc implant. OTHER: No other significant finding. IMPRESSION: 1. Airspace disease in the right lower lobe, atelectasis versus pneumonia. 2. There is considerable fluid throughout the bowel. Correlate for enteritis. 3. Osseous findings as described. COMMENT: Quality ID # [id number]: Final reports with documentation of one or more dose reduction techniques (e.g., Automated exposure control, adjustment of the mA and/or kV according to patient size, use of iterative reconstruction technique) TECHNICAL DOCUMENTATION: JOB ID: [id number] [employer]- All Rights Reserved Reading location - IP/workstation name: [email or web address]
[2018-11-16 19:20] LABS: INTERNATIONAL RATION (INR) 1.22; PROTHROMBIN TIME 15.5 SEC (11.4-15.4)
--- NOTE | 2018-11-16 19:56 | PDOC H&P ---
History of Present Illness Admission Date/PCP: 11/16/18 14:43 OSBALDO HOBSON MD History of Present Illness: MYRTLE THAPA is a 63 year old female.She came to the emergency room earlier today for evaluation of persistent vomiting for the last 2 days, she called EMS she was transported to the emergency room the history was that when EMS arrived the heart rate was between 170-230. She received adenosine on the field, when she arrived in the emergency room she was in sinus tachycardia with a heart rate of 110. The ABG that was done in the emergency room demonstrated severe hypoxem ia, CT angiogram of the chest could not be done because the serum creatinine was 2.8., She had a VQ scan done which suggest normal perfusion.The hemogram revealed severe leukocytosis WBC was 26.9 thousand with a left shift. The initial chest x-ray was done was nondiagnostic because of the severe hypoxemia I requested for CT chest without contrast, it demonstrated lower lobe airspace disease right more than left I suspect is probably aspiration from the persistent vomiting. She told me that she was vomiting since yesterday, she recently vomited recently eating food ultimately turned to green color vomitus. CT scan chest showed that the stomach was distended with fluid,There is a concern for small bowel obstruction because of this finding CT of the abdomen and pelvis without contrast was obtained, it demonstrated fluid throughout the GI tract but no definitive obstruction Past Medical History Cardiac Medical History: Reports: Coronary Artery Disease, Hyperlipidema, Peripheral Vascular Disease Pulmonary Medical History: Reports: Chronic Obstructive Pulmonary Disease (COPD) Musculoskeltal Medical History: Reports: Arthritis Psychiatric Medical History: Reports: Depression Past Surgical History Past Surgical History: Reports: Orthopedic Surgery, Vascular Surgery - B Femoral stents, Other - Stents in her right large 20 Social History Lives with: Spouse/Significant other Smoking Status: Current Every Day Smoker Cigarettes Packs Per Day: 15 Frequency of Alcohol Use: None Hx Recreational Drug Use: No Drugs: None Hx Prescription Drug Abuse: No - Advance Directive Resuscitation Status: Full Code Family History Family History: Reviewed & Not Pertinent Parental Family History Reviewed: Yes Children Family History Reviewed: Yes Sibling(s) Family History Reviewed.: Yes Medication/Allergy Home Medications: Acetaminophen with Codeine [Acetaminophen-Cod #4 Tablet] 1 each PO Q6HP PRN 11/16/18 Atorvastatin Calcium [Lipitor 40 mg Tablet] 40 mg PO DAILY 11/16/18 Bupropion HCl [Bupropion HCl Sr] 150 mg PO Q12 11/16/18 Buspirone HCl [Buspar 30 mg Tablet] 30 mg PO Q12 11/16/18 Clopidogrel Bisulfate [Plavix 75 mg Tablet] 75 mg PO DAILY 11/16/18 Gabapentin [Neurontin 400 mg Capsule] 800 mg PO Q8 11/16/18 Lisinopril/Hydrochlorothiazide [Lisinopril-Hctz 20-12.5 mg Tab] 1 each PO Q12 11/16/18 Meloxicam [Mobic] 7.5 mg PO DAILY 11/16/18 Nitroglycerin [Nitrostat 0.4 mg (1/150 Gr) Tabs 25/Bottle] 1 tab SL Q5MP PRN 11/16/18 Omeprazole 20 mg PO DAILY 11/16/18 Ondansetron HCl [Zofran 4 mg Tablet] 4 mg PO Q6HP PRN 11/16/18 Trazodone HCl [Desyrel] 100 mg PO QHS 11/16/18 Allergies/Adverse Reactions: acetaminophen [From Tylenol] Allergy (Verified 11/16/18 10:23) morphine Adverse Reaction (Severe, Verified 11/16/18 10:23) Hypotension oxycodone [From Percocet] Adverse Reaction (Intermediate, Verified 11/16/18 10:23) Nausea Review of Systems Constitutional: PRESENT: fatigue Eyes: ABSENT: visual disturbances Ears: ABSENT: hearing changes Cardiovascular: ABSENT: chest pain, dyspnea on exertion, edema, orthropnea, palpitations Respiratory: ABSENT: cough, hemoptysis Gastrointestinal: PRESENT: abdominal pain, vomiting Genitourinary: ABSENT: dysuria, hematuria Musculoskeletal: ABSENT: joint swelling Integumentary: ABSENT: rash, wounds Neurological: ABSENT: abnormal gait, abnormal speech, confusion, dizziness, focal weakness, syncope Psychiatric: ABSENT: anxiety, depression, homidical ideation, suicidal ideation Endocrine: ABSENT: cold intolerance, heat intolerance, menstrual abnormalities, polydipsia, polyuria Hematologic/Lymphatic: ABSENT: easy bleeding, easy bruising, lymphadenopathy Physical Exam Vital Signs: Temp Pulse Resp BP Pulse Ox 99.2 F 81 16 111/46 L 95 11/16/18 19:39 11/16/18 19:39 11/16/18 19:39 11/16/18 19:39 11/16/18 19:39 Intake & Output 11/15/18 11/16/18 11/17/18 06:59 06:59 06:59 Intake Total 3150 Balance 3150 Weight 72.5 kg General appearance: PRESENT: no acute distress Head exam: PRESENT: normocephalic Eye exam: PRESENT: PERRLA Ear exam: PRESENT: normal external ear exam Mouth exam: PRESENT: moist, tongue midline Neck exam: PRESENT: full ROM Respiratory exam: PRESENT: clear to auscultation radha Cardiovascular exam: PRESENT: RRR, +S1, +S2 Pulses: PRESENT: normal dorsalis pedis pul, +2 pedal pulses bilateral Vascular exam: PRESENT: normal capillary refill GI/Abdominal exam: PRESENT: diminished bowel sounds, distended, soft, other Rectal exam: PRESENT: deferred Neurological exam: PRESENT: alert, awake, oriented to person, oriented to place, oriented to time, oriented to situation, CN II-XII grossly intact Psychiatric exam: PRESENT: appropriate affect, normal mood Skin exam: PRESENT: dry, intact, warm Results Laboratory Results: 11/16/18 10:25 11/16/18 10:25 11/16/18 11/16/18 11/16/18 10:25 10:25 10:25 WBC 26.9 H RBC 5.15 Hgb 15.8 H Hct 46.1 MCV 90 MCH 30.7 MCHC 34.3 RDW 13.4 Plt Count 467 H Seg Neutrophils % Not Reportable Lymphocytes % Not Reportable Monocytes % Not Reportable Eosinophils % Not Reportable Basophils % Not Reportable Absolute Neutrophils Not Reportable Absolute Lymphocytes Not Reportable Absolute Monocytes Not Reportable Absolute Eosinophils Not Reportable Absolute Basophils Not Reportable Carbonic Acid HCO3/H2CO3 Ratio ABG pH ABG pCO2 ABG pO2 ABG HCO3 ABG O2 Saturation ABG Base Excess VBG pH 7.39 VBG pCO2 46.4 VBG HCO3 27.2 VBG Base Excess 1.5 FiO2 Sodium 136.3 L Potassium 4.8 Chloride 91 L Carbon Dioxide 24 Anion Gap 21 H BUN 35 H Creatinine 2.83 H Est GFR ( Amer) 20 L Est GFR (Non-Af Amer) 17 L Glucose 135 H Lactic Acid Calcium 10.7 H Phosphorus 6.3 H Magnesium 2.0 Total Bilirubin 1.3 AST 25 ALT 17 Alkaline Phosphatase 109 Total Protein 9.2 H Albumin 5.4 H Urine Color Urine Appearance Urine pH Ur Specific [place] Urine Protein Urine Glucose (UA) Urine Ketones Urine Blood Urine Nitrite Ur Leukocyte Esterase Urine WBC (Auto) Urine RBC (Auto) 11/16/18 11/16/18 11/16/18 10:42 10:59 11:08 WBC RBC Hgb Hct MCV MCH MCHC RDW Plt Count Seg Neutrophils % Lymphocytes % Monocytes % Eosinophils % Basophils % Absolute Neutrophils Absolute Lymphocytes Absolute Monocytes Absolute Eosinophils Absolute Basophils Carbonic Acid 1.02 L HCO3/H2CO3 Ratio 21:1 ABG pH 7.44 ABG pCO2 33.8 L ABG pO2 49.2 L ABG HCO3 22.4 ABG O2 Saturation 86.5 L ABG Base Excess -0.9 VBG pH VBG pCO2 VBG HCO3 VBG Base Excess FiO2 5L Sodium Potassium Chloride Carbon Dioxide Anion Gap BUN Creatinine Est GFR ( Amer) Est GFR (Non-Af Amer) Glucose Lactic Acid 2.9 H Calcium Phosphorus Magnesium Total Bilirubin AST ALT Alkaline Phosphatase Total Protein Albumin Urine Color YELLOW Urine Appearance CLEAR Urine pH 5.0 Ur Specific [place] 1.024 Urine Protein NEGATIVE Urine Glucose (UA) NEGATIVE Urine Ketones NEGATIVE Urine Blood NEGATIVE Urine Nitrite NEGATIVE Ur Leukocyte Esterase NEGATIVE Urine WBC (Auto) 1 Urine RBC (Auto) 1 11/16/18 19:00 WBC RBC Hgb Hct MCV MCH MCHC RDW Plt Count Seg Neutrophils % Lymphocytes % Monocytes % Eosinophils % Basophils % Absolute Neutrophils Absolute Lymphocytes Absolute Monocytes Absolute Eosinophils Absolute Basophils Carbonic Acid HCO3/H2CO3 Ratio ABG pH ABG pCO2 ABG pO2 ABG HCO3 ABG O2 Saturation ABG Base Excess VBG pH VBG pCO2 VBG HCO3 VBG Base Excess FiO2 Sodium Potassium Chloride Carbon Dioxide Anion Gap BUN Creatinine Est GFR ( Amer) Est GFR (Non-Af Amer) Glucose Lactic Acid 1.4 Calcium Phosphorus Magnesium Total Bilirubin AST ALT Alkaline Phosphatase Total Protein Albumin Urine Color Urine Appearance Urine pH Ur Specific [place] Urine Protein Urine Glucose (UA) Urine Ketones Urine Blood Urine Nitrite Ur Leukocyte Esterase Urine WBC (Auto) Urine RBC (Auto) 11/16/18 10:25 Troponin I < 0.012 Impressions: Abdomen/Pelvis CT 11/16/18 00:00 IMPRESSION: 1. Airspace disease in the right lower lobe, atelectasis versus pneumonia. 2. There is considerable fluid throughout the bowel. Correlate for enteritis. 3. Osseous findings as described. Chest CT 11/16/18 00:00 IMPRESSION: Mild lower lobe airspace disease, right more than left. Atelectasis versus pneumonia. There is fluid in the esophagus. The stomach is distended with fluid. There is fluid in proximal small bowel loops. Is there any concern for small bowel obstruction? Chest X-Ray 11/16/18 10:24 IMPRESSION: NO ACUTE RADIOGRAPHIC FINDING IN THE CHEST. Lung Scan-VQ NM 11/16/18 11:23 IMPRESSION: No pulmonary perfusion defect identified. Assessment & Plan - Diagnosis (1) Acute hypoxemic respiratory failure Is this a current diagnosis for this admission?: Yes Plan: She has underlining COPD with superimposed aspiration pneumonia, the findings on the CT chest does not seem to correlate with the degree of hypoxemia she has severe COPD mild pneumonia can lead to severe hypoxemia especially in this patient (2) Aspiration pneumonia Qualifiers: Aspiration pneumonia type: due to vomit Laterality: bilateral Lung location: lower lobe of lung Qualified Code(s): J69.0 - Pneumonitis due to inhalation of food and vomit Is this a current diagnosis for this admission?: Yes Plan: She will be treated with antibiotic that will cover anaerobes, gram-positive, gram-negative organisms, Zosyn empirically (3) Sepsis Qualifiers: Sepsis type: sepsis due to unspecified organism Qualified Code(s): A41.9 - Sepsis, unspecified organism Is this a current diagnosis for this admission?: Yes Plan: She met sepsis criteria (4) Ischemic colitis Is this a current diagnosis for this admission?: Yes Plan: I suspect she has ischemic colitis, she has underlining vascular disease including PAD, CAD, she continues to smoke cigarettes, the presentation suggests an acute event of some sort, Consult surgicalist for colonoscopy (5) Acute kidney injury Is this a current diagnosis for this admission?: Yes Plan: This most likely prerenal acute kidney injury, patient will be vigorously hydrated with fluid
--- NOTE | 2018-11-16 20:30 | EKG REPORT ---
SEVERITY:- NORMAL ECG - SINUS RHYTHM : Confirmed by: Gail Singh 16-Nov-2018 20:30:04
--- NOTE | 2018-11-16 20:30 | EKG REPORT ---
SEVERITY:- BORDERLINE ECG - SINUS TACHYCARDIA LEFT AXIS DEVIATION BORDERLINE INFERIOR Q WAVES : Confirmed by: Gail Singh 16-Nov-2018 20:30:20
[2018-11-17] MEDS: ONDANSETRON HCL INJ/PF 4 MG/2 ML SDV IV PRN ×3 (00:39→09:01)
[2018-11-17] MEDS: HYDROMORPHONE HCL INJ/PF 2 MG/ML AMPULE IV PRN ×3 (00:39→09:01)
[2018-11-17] MEDS: NORMAL SALINE 1000 ML 1,000 ML IV PRN ×2 (04:38→20:30)
[2018-11-17 04:40] LABS: HEMATOCRIT 34.9 % (36.0-47.0); MEAN CORPUSCULAR HEMOGLOBIN 30.7 pg (27.0-33.4); MEAN CORPUSCULAR HGB CONC 34.4 g/dL (32.0-36.0); MEAN CORPUSCULAR VOLUME 89 fl (80-97); PLATELET COUNT 290 10^3/uL (150-450); RED CELL DISTRIBUTION WIDTH 13.6 % (11.5-14.0); WHITE BLOOD COUNT 19.8 10^3/uL (4.0-10.5)
[2018-11-17 05:04] LABS: ALANINE AMINOTRANSFERASE 13 U/L (9-52); ALBUMIN 3.5 g/dL (3.5-5.0); ALKALINE PHOSPHATASE 64 U/L (38-126); ANION GAP 10 (5-19); ASPARTATE AMINO TRANSFERASE 20 U/L (14-36); BILIRUBIN,DIRECT 0.3 mg/dL (0.0-0.4); BILIRUBIN,TOTAL 0.8 mg/dL (0.2-1.3); BLOOD UREA NITROGEN 40 mg/dL (7-20); CALCIUM 8.6 mg/dL (8.4-10.2); CARBON DIOXIDE 23 mmol/L (22-30); CHLORIDE 104 mmol/L (98-107); GLUCOSE 101 mg/dL (75-110); POTASSIUM 4.4 mmol/L (3.6-5.0); SODIUM 137.2 mmol/L (137-145); TOTAL PROTEIN 5.9 g/dL (6.3-8.2)
[2018-11-17] MEDS: PIPERACILLIN SODIUM/TAZOBACTAM 4.5 GM in NORMAL SALINE 100 ML IV SCH ×4 (05:42→23:28)
--- NOTE | 2018-11-17 15:06 | PDOC PROGRESS REPORT ---
Subjective Progress Note for:: 11/17/18 Subjective:: Patient was seen by the bedside, she still complaining of abdominal pain, the kidney function has improved some suggesting prerenal acute kidney injury, will obtain CTA of the splanchnic circulation once kidney function is normalized . Reason For Visit: SEPSIS Physical Exam Vital Signs: Temp Pulse Resp BP Pulse Ox 98.5 F 61 17 122/41 L 100 11/17/18 11:54 11/17/18 11:54 11/17/18 11:54 11/17/18 11:54 11/17/18 11:54 Intake & Output 11/16/18 11/17/18 11/18/18 06:59 06:59 06:59 Intake Total 4350 Output Total 250 Balance 4100 Weight 72.5 kg General appearance: PRESENT: no acute distress Eye exam: PRESENT: PERRLA Respiratory exam: PRESENT: clear to auscultation radha Cardiovascular exam: PRESENT: +S1, +S2 GI/Abdominal exam: PRESENT: soft Neurological exam: PRESENT: alert, CN II-XII grossly intact Results Laboratory Results: 11/17/18 04:16 11/17/18 04:16 11/16/18 11/17/18 11/17/18 19:00 04:16 04:16 WBC 19.8 H RBC 3.90 Hgb 12.0 D Hct 34.9 L MCV 89 MCH 30.7 MCHC 34.4 RDW 13.6 Plt Count 290 Sodium 137.2 Potassium 4.4 Chloride 104 Carbon Dioxide 23 Anion Gap 10 BUN 40 H Creatinine 1.80 H Est GFR ( Amer) 34 L Est GFR (Non-Af Amer) 28 L Glucose 101 Lactic Acid 1.4 Calcium 8.6 Total Bilirubin 0.8 AST 20 ALT 13 Alkaline Phosphatase 64 Total Protein 5.9 L Albumin 3.5 11/16/18 10:25 Troponin I < 0.012 Impressions: Abdomen/Pelvis CT 11/16/18 00:00 IMPRESSION: 1. Airspace disease in the right lower lobe, atelectasis versus pneumonia. 2. There is considerable fluid throughout the bowel. Correlate for enteritis. 3. Osseous findings as described. Chest CT 11/16/18 00:00 IMPRESSION: Mild lower lobe airspace disease, right more than left. Atelectasis versus pneumonia. There is fluid in the esophagus. The stomach is distended with fluid. There is fluid in proximal small bowel loops. Is there any concern for small bowel obstruction? Chest X-Ray 11/16/18 10:24 IMPRESSION: NO ACUTE RADIOGRAPHIC FINDING IN THE CHEST. Lung Scan-VQ NM 11/16/18 11:23 IMPRESSION: No pulmonary perfusion defect identified. Assessment & Plan - Diagnosis (1) Acute hypoxemic respiratory failure Is this a current diagnosis for this admission?: Yes Plan: Continue nasal cannula oxygen (2) Aspiration pneumonia Qualifiers: Aspiration pneumonia type: due to vomit Laterality: bilateral Lung location: lower lobe of lung Qualified Code(s): J69.0 - Pneumonitis due to inhalation of food and vomit Is this a current diagnosis for this admission?: Yes Plan: Continue antibiotic (3) Sepsis Qualifiers: Sepsis type: sepsis due to unspecified organism Qualified Code(s): A41.9 - Sepsis, unspecified organism Is this a current diagnosis for this admission?: Yes (4) Ischemic colitis Is this a current diagnosis for this admission?: Yes Plan: Awaiting input from surgery for colonoscopy (5) Acute kidney injury Is this a current diagnosis for this admission?: Yes Plan: improving
--- NOTE | 2018-11-17 17:03 | PDOC CONSULTATION ---
Consultation Consult Date: 11/17/18 Provider Consulted: GUALBERTO WARNER Consult reason:: Colonoscopy for ischemia History of Present Illness Admission Date/PCP: 11/16/18 14:43 OSBALDO HOBSON MD Patient complains of: abdominal pains History of Present Illness: MYRTLE THAPA is a 63 year old female with history of chronic back pains post L-S fusion in 2001 and on Tylenol #4 and neurontin since.C/O diarrhea 4 days ago with abdominal pains followed by nausea and vominting. Brought by EMS yesterday to ED for lethargy and tachycardia in the 200/min and responded to adenosine with HR 110/min. Had CT scan yesterday which showed partial small bowel obstruction which i just reviewed with the Radiologist. Last time she vomitted was last night and had BM just a while ago with flatus. Refuses NGT. She says she had the same episode 2 years ago and they placed an NGT in the ED which she pulled out that same day because of discomfort and persistent vomitting. Denies fever or chills. Past Medical History Cardiac Medical History: Reports: Coronary Artery Disease, Hyperlipidema, Peripheral Vascular Disease Pulmonary Medical History: Reports: Chronic Obstructive Pulmonary Disease (COPD) Musculoskeltal Medical History: Reports: Arthritis Psychiatric Medical History: Reports: Depression Past Surgical History Past Surgical History: Reports: Hysterectomy, Orthopedic Surgery, Vascular Surgery - B Femoral stents, Other - Stents in her right large 20 Social History Lives with: Spouse/Significant other Smoking Status: Current Every Day Smoker Cigarettes Packs Per Day: 15 Frequency of Alcohol Use: None Hx Recreational Drug Use: No Drugs: None Hx Prescription Drug Abuse: No - Advance Directive Resuscitation Status: Full Code Family History Family History: Reviewed & Not Pertinent Parental Family History Reviewed: Yes - Has DM Children Family History Reviewed: No Sibling(s) Family History Reviewed.: Yes - brother has DM Medication/Allergy Home Medications: Acetaminophen with Codeine [Acetaminophen-Cod #4 Tablet] 1 each PO Q6HP PRN 11/16/18 Atorvastatin Calcium [Lipitor 40 mg Tablet] 40 mg PO DAILY 11/16/18 Bupropion HCl [Bupropion HCl Sr] 150 mg PO Q12 11/16/18 Buspirone HCl [Buspar 30 mg Tablet] 30 mg PO Q12 11/16/18 Clopidogrel Bisulfate [Plavix 75 mg Tablet] 75 mg PO DAILY 11/16/18 Gabapentin [Neurontin 400 mg Capsule] 800 mg PO Q8 11/16/18 Lisinopril/Hydrochlorothiazide [Lisinopril-Hctz 20-12.5 mg Tab] 1 each PO Q12 11/16/18 Meloxicam [Mobic] 7.5 mg PO DAILY 11/16/18 Nitroglycerin [Nitrostat 0.4 mg (1/150 Gr) Tabs 25/Bottle] 1 tab SL Q5MP PRN 11/16/18 Omeprazole 20 mg PO DAILY 11/16/18 Ondansetron HCl [Zofran 4 mg Tablet] 4 mg PO Q6HP PRN 11/16/18 Trazodone HCl [Desyrel] 100 mg PO QHS 11/16/18 Allergies/Adverse Reactions: acetaminophen [From Tylenol] Allergy (Verified 11/16/18 10:23) morphine Adverse Reaction (Severe, Verified 11/16/18 10:23) Hypotension oxycodone [From Percocet] Adverse Reaction (Intermediate, Verified 11/16/18 10:23) Nausea Review of Systems Constitutional: PRESENT: as per HPI Physical Exam Vital Signs: Temp Pulse Resp BP Pulse Ox 98.5 F 61 17 122/41 L 100 11/17/18 11:54 11/17/18 11:54 11/17/18 11:54 11/17/18 11:54 11/17/18 11:54 Intake & Output 11/16/18 11/17/18 11/18/18 06:59 06:59 06:59 Intake Total 4350 Output Total 250 Balance 4100 Weight 72.5 kg General appearance: PRESENT: mild distress Head exam: PRESENT: atraumatic Eye exam: PRESENT: conjunctiva pink Mouth exam: PRESENT: moist Neck exam: PRESENT: full ROM Pulses: PRESENT: normal radial pulses Vascular exam: PRESENT: normal capillary refill GI/Abdominal exam: PRESENT: distended - appears to be less distended now, soft, tenderness - miuld tenderness LLQ Rectal exam: PRESENT: deferred Extremities exam: PRESENT: full ROM Musculoskeletal exam: PRESENT: ambulatory Neurological exam: PRESENT: oriented to person, oriented to place, oriented to time Psychiatric exam: PRESENT: anxious Skin exam: PRESENT: normal color, warm Results Laboratory Results: 11/17/18 04:16 11/17/18 04:16 11/16/18 11/17/18 11/17/18 19:00 04:16 04:16 WBC 19.8 H RBC 3.90 Hgb 12.0 D Hct 34.9 L MCV 89 MCH 30.7 MCHC 34.4 RDW 13.6 Plt Count 290 Sodium 137.2 Potassium 4.4 Chloride 104 Carbon Dioxide 23 Anion Gap 10 BUN 40 H Creatinine 1.80 H Est GFR ( Amer) 34 L Est GFR (Non-Af Amer) 28 L Glucose 101 Lactic Acid 1.4 Calcium 8.6 Total Bilirubin 0.8 AST 20 ALT 13 Alkaline Phosphatase 64 Total Protein 5.9 L Albumin 3.5 11/16/18 10:25 Troponin I < 0.012 Impressions: Abdomen/Pelvis CT 11/16/18 00:00 IMPRESSION: 1. Airspace disease in the right lower lobe, atelectasis versus pneumonia. 2. There is considerable fluid throughout the bowel. Correlate for enteritis. 3. Osseous findings as described. Chest CT 11/16/18 00:00 IMPRESSION: Mild lower lobe airspace disease, right more than left. Atelectasis versus pneumonia. There is fluid in the esophagus. The stomach is distended with fluid. There is fluid in proximal small bowel loops. Is there any concern for small bowel obstruction? Chest X-Ray 11/16/18 10:24 IMPRESSION: NO ACUTE RADIOGRAPHIC FINDING IN THE CHEST. Lung Scan-VQ NM 11/16/18 11:23 IMPRESSION: No pulmonary perfusion defect identified. Assessment & Plan - Diagnosis (1) partial small bowel obstruction Is this a current diagnosis for this admission?: Yes (2) Acute hypoxemic respiratory failure Is this a current diagnosis for this admission?: Yes (3) Acute renal insufficiency Is this a current diagnosis for this admission?: Yes (4) Dehydration Is this a current diagnosis for this admission?: Yes (5) Leukocytosis Qualifiers: Leukocytosis type: unspecified Qualified Code(s): D72.829 - Elevated white blood cell count, unspecified Is this a current diagnosis for this admission?: Yes (6) Sepsis Qualifiers: Sepsis type: sepsis due to unspecified organism Qualified Code(s): A41.9 - Sepsis, unspecified organism Is this a current diagnosis for this admission?: Yes (7) Vomiting and diarrhea Is this a current diagnosis for this admission?: Yes (8) COPD (chronic obstructive pulmonary disease) Qualifiers: COPD type: unspecified COPD Qualified Code(s): J44.9 - Chronic obstructive pulmonary disease, unspecified Is this a current diagnosis for this admission?: Yes - Time Time Spent: 30 to 50 Minutes - Inpatient Certification Medical Necessity: Need Close Monitoring Due to Risk of Patient Decompensation, Need For IV Fluids, Need for IV Antibiotics, Risk of Complication if Not Cared For in Hospital - Plan Summary Plan Summary: 63 yo female with hx of chronic back pains c/o diarrhea, abdominal pains followed nausea,vomiting past 4-5 days. Brought to ED by EMS for lethargy and tachycardia about 200/min responded to Adenosine with decrease HR. WBC elevated. CT scan showed partial obstruction area of terminal ileum. Had marked abdominal distention last night but appears to subside today. Consulted surgicalist to do colonoscopy for possible ischemic bowel. REC: Insert NGT. Told her i can place a smaller NGT. Claims her left nasal passage is narrower than the right Continue hydration and Empiric antibiotics for possible enteritis SBFT with gasrograffin tomorrow am to see if SBO is resolved vs identifying obstruction site. Repeat WBC CMP in am. Doubt ischemic bowel but will follow closely
[2018-11-18] MEDS: HYDROMORPHONE HCL INJ/PF 2 MG/ML AMPULE IV PRN ×3 (02:12→23:00)
[2018-11-18] MEDS: ONDANSETRON HCL INJ/PF 4 MG/2 ML SDV IV PRN ×3 (02:12→23:00)
[2018-11-18] MEDS: NORMAL SALINE 1000 ML 1,000 ML IV PRN (04:37)
[2018-11-18] MEDS: PIPERACILLIN SODIUM/TAZOBACTAM 4.5 GM in NORMAL SALINE 100 ML IV SCH ×3 (05:51→18:08)
[2018-11-18 07:16] LABS: ABSOLUTE BASOPHILS # (AUTO) 0.1 10^3/uL (0.0-0.2); ABSOLUTE EOSINOPHILS # (AUTO) 0.1 10^3/uL (0.0-0.6); ABSOLUTE LYMPHOCYTES (AUTO) 1.8 10^3/uL (0.5-4.7); ABSOLUTE MONOCYTES (AUTO) 0.9 10^3/uL (0.1-1.4); ABSOLUTE NEUT (AUTO) 8.1 10^3/uL (1.7-8.2); BASOPHILS % (AUTO) 0.5 % (0-2); EOSINOPHILS % (AUTO) 0.8 % (0-6); HEMATOCRIT 32.2 % (36.0-47.0); HEMOGLOBIN 11.1 g/dL (12.0-15.5); LYMPHOCYTES % (AUTO) 16.4 % (13-45); MEAN CORPUSCULAR HGB CONC 34.5 g/dL (32.0-36.0); MEAN CORPUSCULAR VOLUME 90 fl (80-97); MONOCYTES % (AUTO) 8.2 % (3-13); PLATELET COUNT 278 10^3/uL (150-450); RED BLOOD COUNT 3.57 10^6/uL (3.72-5.28); RED CELL DISTRIBUTION WIDTH 13.4 % (11.5-14.0); SEGMENTED NEUTROPHILS % (AUTO) 74.1 % (42-78); TOTAL CELLS COUNTED % (AUTO) 100 %; WHITE BLOOD COUNT 10.9 10^3/uL (4.0-10.5)
[2018-11-18 07:35] LABS: ALANINE AMINOTRANSFERASE 21 U/L (9-52); ALKALINE PHOSPHATASE 55 U/L (38-126); ANION GAP 7 (5-19); ASPARTATE AMINO TRANSFERASE 40 U/L (14-36); BILIRUBIN,DIRECT 0.2 mg/dL (0.0-0.4); BILIRUBIN,TOTAL 0.6 mg/dL (0.2-1.3); BLOOD UREA NITROGEN 17 mg/dL (7-20); CALCIUM 8.3 mg/dL (8.4-10.2); CARBON DIOXIDE 21 mmol/L (22-30); CHLORIDE 111 mmol/L (98-107); GLUCOSE 82 mg/dL (75-110); SODIUM 138.6 mmol/L (137-145); TOTAL PROTEIN 5.4 g/dL (6.3-8.2)
--- NOTE | 2018-11-18 10:38 | PDOC PROGRESS REPORT ---
Subjective Progress Note for:: 11/18/18 Subjective:: Patient complains of several day history of profuse diarrhea and intermittent nausea and vomiting with diffuse abdominal pain. Reason For Visit: SEPSIS Physical Exam Vital Signs: Temp Pulse Resp BP Pulse Ox 98.3 F 57 L 16 122/43 L 100 11/18/18 08:11 11/18/18 08:11 11/18/18 08:11 11/18/18 08:11 11/18/18 08:11 Intake & Output 11/17/18 11/18/18 11/19/18 06:59 06:59 06:59 Intake Total 4350 2560 Output Total 250 1110 Balance 4100 1450 Weight 72.5 kg 75.5 kg General appearance: PRESENT: no acute distress, cooperative - Patient is alert and appropriate and nontoxic. Very calm and appears comfortable. Eye exam: PRESENT: conjunctiva pink Respiratory exam: PRESENT: clear to auscultation radha Cardiovascular exam: PRESENT: RRR GI/Abdominal exam: PRESENT: other - Soft, mildly distended, mild diffuse abdom inal tenderness with no peritoneal signs. Results Laboratory Results: 11/18/18 07:08 11/18/18 07:08 11/18/18 11/18/18 07:08 07:08 WBC 10.9 H RBC 3.57 L Hgb 11.1 L Hct 32.2 L MCV 90 MCH 31.0 MCHC 34.5 RDW 13.4 Plt Count 278 Seg Neutrophils % 74.1 Lymphocytes % 16.4 Monocytes % 8.2 Eosinophils % 0.8 Basophils % 0.5 Absolute Neutrophils 8.1 Absolute Lymphocytes 1.8 Absolute Monocytes 0.9 Absolute Eosinophils 0.1 Absolute Basophils 0.1 Sodium 138.6 Potassium 4.0 Chloride 111 H Carbon Dioxide 21 L Anion Gap 7 BUN 17 Creatinine 0.88 Est GFR ( Amer) > 60 Est GFR (Non-Af Amer) > 60 Glucose 82 Calcium 8.3 L Total Bilirubin 0.6 AST 40 H ALT 21 Alkaline Phosphatase 55 Total Protein 5.4 L Albumin 3.0 L 11/16/18 11:08 Catheterized Urine Urine Culture - Final NO GROWTH 2 DAYS 11/16/18 10:25 Troponin I < 0.012 Impressions: Abdomen/Pelvis CT 11/16/18 00:00 IMPRESSION: 1. Airspace disease in the right lower lobe, atelectasis versus pneumonia. 2. There is considerable fluid throughout the bowel. Correlate for enteritis. 3. Osseous findings as described. Chest CT 11/16/18 00:00 IMPRESSION: Mild lower lobe airspace disease, right more than left. Atelectasis versus pneumonia. There is fluid in the esophagus. The stomach is distended with fluid. There is fluid in proximal small bowel loops. Is there any concern for small bowel obstruction? Chest X-Ray 11/16/18 10:24 IMPRESSION: NO ACUTE RADIOGRAPHIC FINDING IN THE CHEST. Lung Scan-VQ NM 11/16/18 11:23 IMPRESSION: No pulmonary perfusion defect identified. Assessment & Plan - Diagnosis (1) Gastroenteritis Is this a current diagnosis for this admission?: Yes Plan: Likely a diarrheal illness. Pending repeat CT scan. We will check stool studies.
[2018-11-18] MEDS ORDERED: GLUCAGON,HUMAN RECOMB 1 MG INJ SUBCUT PRN (13:36)
[2018-11-18] MEDS ORDERED: DEXTROSE 50%-WATER 25 GM/50 ML DISP.SYRIN IV PRN ×2 (13:36)
[2018-11-18] MEDS ORDERED: DEXTROSE 40% GEL 15 GM TUBE PO PRN ×2 (13:36)
--- NOTE | 2018-11-18 13:38 | RADIOLOGY REPORT (SQ) ---
EXAM DESCRIPTION: CTA ABDOMEN/PELVIS W WO COMPLETED DATE/TIME: 11/18/2018 11:25 am REASON FOR STUDY: ischemic bowel COMPARISON: CT abdomen pelvis without contrast 11/16/2018 CT abdomen and pelvis/CT angio 08/04/2018 CT abdomen pelvis 09/19/2014 TECHNIQUE: CT scan of the abdominal aorta extending through the pelvis performed with and without in travenous contrast using helical scanning technique with dynamic intravenous contrast injection. Imag es reviewed with lung, soft tissue, and bone windows. Reconstructed coronal and sagittal MPR images r eviewed. All images stored on PACS. Advanced 3D imaging as volume rendering, MIPS, SSD performed? yes All CT scanners at this facility use dose modulation, iterative reconstruction, and/or weight based d osing when appropriate to reduce radiation dose to as low as reasonably achievable (ALARA). [facility]: Dose Right [facility]: CareDose [facility]: Dose Right [facility]: Teradose 4D [facility]: FitOrbit CONTRAST TYPE AND DOSE: contrast/concentration: Isovue 350.00 mg/ml; Total Contrast Delivered: 52.0 ml; Total Saline Delivered: 80.0 ml RENAL FUNCTION: Creatinine 0.88 LIMITATIONS: None. FINDINGS: NON-CONTRASTED IMAGING: Calcifications at the right and left renal vickie are likely vascula r. Calcified abdominal aorta and proximal visceral artery is POST-CONTRAST IMAGING: AORTA AND VESSELS: No abdominal aortic aneurysm or abdominal aortic dissection. There is heavily calcified origin of the celiac artery with at least 50% proximal celiac artery steno sis at the origin. There is very heavy atherosclerotic calcification at the origin of the SMA with study 5% narrowing. Good contrast enhancement throughout the remainder of the SMA. Bilateral renal artery origins are calcified. No flow significant stenosis at the renal artery is. Inferior mesenteric artery origin is calcified. Good contrast enhancement throughout the remainder o f the inferior mesenteric artery. Patient has a left-sided common iliac artery and external iliac artery stent which are widely patent. LUNG BASES: Consolidation at both lung bases likely atelectasis. Pneumonia could not be excluded. LIVER: Normal size. No masses or dilated ducts. SPLEEN: Normal size. No focal lesions. PANCREAS: No masses. No significant calcifications. No adjacent inflammation or peripancreatic fluid collections. Pancreatic duct not dilated. GALLBLADDER: Surgically absent ADRENAL GLANDS: No significant masses or asymmetry. RIGHT KIDNEY AND URETER: No mass, calculi or urinary tract obstruction. LEFT KIDNEY AND URETER: No mass, calculi or urinary tract obstruction. RETROPERITONEUM: No retroperitoneal adenopathy, hemorrhage or masses. BOWEL AND PERITONEAL CAVITY: Stomach is decompressed. There are fluid-filled borderline distended sm all bowel loops and colon, likely an ileus. Trace right pericolic gutter and pelvic free fluid. APPENDIX: Not identified ABDOMINAL WALL: No masses. No hernias. BONY STRUCTURES: Lower lumbar fusion 3-D IMAGING: Confirms the above findings. PELVIS: No other significant finding. Pessary in the vagina. Post hysterectomy. Small amount of fr ee pelvic fluid. No pelvic adenopathy or masses. Findings discussed with Dr. 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 TECHNICAL DOCUMENTATION: JOB ID: [id number] Quality ID # [id number]: Final reports with documentation of one or more dose reduction techniques (e.g., Au tomated exposure control, adjustment of the mA and/or kV according to patient size, use of iterative reconstruction technique) 2010 [employer]- All Rights Reserved Reading location - IP/workstation name: [email or web address]
--- NOTE | 2018-11-18 13:50 | PDOC PROGRESS REPORT ---
Subjective Progress Note for:: 11/18/18 Reason For Visit: SEPSIS Physical Exam Vital Signs: Temp Pulse Resp BP Pulse Ox 98.7 F 68 16 128/38 H 98 11/18/18 12:52 11/18/18 12:52 11/18/18 12:52 11/18/18 12:52 11/18/18 12:52 Intake & Output 11/17/18 11/18/18 11/19/18 06:59 06:59 06:59 Intake Total 4350 2657 600 Output Total 250 1110 400 Balance 4100 1547 200 Weight 72.5 kg 75.5 kg GI/Abdominal exam: PRESENT: other - Soft with mild diffuse abdominal tenderness with no peritoneal signs. Results Laboratory Results: 11/18/18 07:08 11/18/18 07:08 11/18/18 11/18/18 07:08 07:08 WBC 10.9 H RBC 3.57 L Hgb 11.1 L Hct 32.2 L MCV 90 MCH 31.0 MCHC 34.5 RDW 13.4 Plt Count 278 Seg Neutrophils % 74.1 Lymphocytes % 16.4 Monocytes % 8.2 Eosinophils % 0.8 Basophils % 0.5 Absolute Neutrophils 8.1 Absolute Lymphocytes 1.8 Absolute Monocytes 0.9 Absolute Eosinophils 0.1 Absolute Basophils 0.1 Sodium 138.6 Potassium 4.0 Chloride 111 H Carbon Dioxide 21 L Anion Gap 7 BUN 17 Creatinine 0.88 Est GFR ( Amer) > 60 Est GFR (Non-Af Amer) > 60 Glucose 82 Calcium 8.3 L Total Bilirubin 0.6 AST 40 H ALT 21 Alkaline Phosphatase 55 Total Protein 5.4 L Albumin 3.0 L 11/16/18 11:08 Catheterized Urine Urine Culture - Final NO GROWTH 2 DAYS 11/16/18 10:25 Troponin I < 0.012 Impressions: Abdomen/Pelvis CT 11/16/18 00:00 IMPRESSION: 1. Airspace disease in the right lower lobe, atelectasis versus pneumonia. 2. There is considerable fluid throughout the bowel. Correlate for enteritis. 3. Osseous findings as described. Chest CT 11/16/18 00:00 IMPRESSION: Mild lower lobe airspace disease, right more than left. Atelectasis versus pneumonia. There is fluid in the esophagus. The stomach is distended with fluid. There is fluid in proximal small bowel loops. Is there a ny concern for small bowel obstruction? Chest X-Ray 11/16/18 10:24 IMPRESSION: NO ACUTE RADIOGRAPHIC FINDING IN THE CHEST. Lung Scan-VQ NM 11/16/18 11:23 IMPRESSION: No pulmonary perfusion defect identified. Assessment & Plan - Diagnosis (1) Gastroenteritis Is this a current diagnosis for this admission?: Yes (2) Mesenteric ischemia due to arterial insufficiency Is this a current diagnosis for this admission?: Yes Plan: CT scan demonstrates significant narrowing of the SMA to greater than 75% stenosis. It does not demonstrate radiologic evidence of intestinal compromise however. It is possible that she suffered a mesenteric ischemic event couple of days ago. Although I do not think she has bowel infarction now but she is at risk for future vascular catastrophe. I have discussed her case with Dr. Ferguson and we will transfer her stat to facility with vascular surgery intervention.
[2018-11-18] MEDS ORDERED: DEXTROSE 5%-1/2 NORMAL SALINE 1,000 ML IV PRN (15:59)
[2018-11-18] MEDS ORDERED: GUAIFENESIN 600 MG TABLET.SA PO SCH (19:00)
--- NOTE | 2018-11-18 19:30 | PDOC TRANSFER SUMMARY ---
General Admission Date/PCP: 11/16/18 14:43 OSBALDO HOBSON MD Admission Date: 11/16/18 Transfer Date: 11/18/18 Resuscitation Status: Full Code - Transfer Diagnosis (1) Acute mesenteric ischemia Is this a current diagnosis for this admission?: Yes (2) Acute hypoxemic respiratory failure Is this a current diagnosis for this admission?: Yes (3) Aspiration pneumonia Is this a current diagnosis for this admission?: Yes (4) Sepsis Is this a current diagnosis for this admission?: Yes (5) Acute kidney injury Is this a current diagnosis for this admission?: Yes - Transfer Medications Home Medications: Acetaminophen with Codeine [Acetaminophen-Cod #4 Tablet] 1 each PO Q6HP PRN 11/16/18 Atorvastatin Calcium [Lipitor 40 mg Tablet] 40 mg PO DAILY 11/16/18 Bupropion HCl [Bupropion HCl Sr] 150 mg PO Q12 11/16/18 Buspirone HCl [Buspar 30 mg Tablet] 30 mg PO Q12 11/16/18 Clopidogrel Bisulfate [Plavix 75 mg Tablet] 75 mg PO DAILY 11/16/18 Gabapentin [Neurontin 400 mg Capsule] 800 mg PO Q8 11/16/18 Lisinopril/Hydrochlorothiazide [Lisinopril-Hctz 20-12.5 mg Tab] 1 each PO Q12 11/16/18 Meloxicam [Mobic] 7.5 mg PO DAILY 11/16/18 Nitroglycerin [Nitrostat 0.4 mg (1/150 Gr) Tabs 25/Bottle] 1 tab SL Q5MP PRN 11/16/18 Omeprazole 20 mg PO DAILY 11/16/18 Ondansetron HCl [Zofran 4 mg Tablet] 4 mg PO Q6HP PRN 11/16/18 Trazodone HCl [Desyrel] 100 mg PO QHS 11/16/18 Transfer Medications: Current Medications Dextrose (Dextrose Inj 50% Syringe (25 Gm/50 Ml)) 12.5 gm IV PRN PRN; Protocol PRN Reason: FOR BG 50-69 IN ALERT PATIENT Stop: 12/18/18 13:35 Dextrose (Dextrose Inj 50% Syringe (25 Gm/50 Ml)) 25 gm IV PRN PRN; Protocol PRN Reason: See Label Comments Stop: 12/18/18 13:35 Glucagon (Glucagen Inj 1 Mg Vial) 1 mg SUBCUT PRN PRN; Protocol PRN Reason: Evaluate for BG < 70 Stop: 12/18/18 13:35 Glucose (Glutose 40% Gel 15 Gm Tube) 15 gm PO PRN PRN; Protocol PRN Reason: For BG 50-69 in Alert Patient Stop: 12/18/18 13:35 Glucose (Glutose 40% Gel 15 Gm Tube) 30 gm PO PRN PRN; Protocol PRN Reason: FOR BG < 50 IN ALERT PATIENT Stop: 12/18/18 13:35 Guaifenesin (Mucinex Sr 600 Mg Tablet.Sa) 600 mg PO Q12 ALAYNA Stop: 12/18/18 18:59 Hydromorphone HCl (Dilaudid Inj/Pf 2 Mg/Ml Ampule) 1 mg IV Q4HP PRN PRN Reason: PAIN 4-5 Stop: 11/24/18 00:15 Last Admin: 11/18/18 18:09 Dose: 1 mg Documented by: Sodium Chloride (Nacl 0.9% 1000 Ml Iv Soln) 1,000 mls @ 150 mls/hr IV CONTINUOUS PRN PRN Reason: THIS MED IS NOT "PRN" Stop: 12/16/18 17:48 Last Infusion: 11/18/18 18:09 Dose: Infused Documented by: Piperacillin Sod/Tazobactam (Sod 4.5 gm/ Sodium Chloride) 100 mls @ 200 mls/hr IV Q6 [facility] Stop: 11/23/18 17:59 Last Admin: 11/18/18 18:08 Dose: 200 mls/hr, 200 mls/hr Documented by: Dextrose/Sodium Chloride (D5-1/2ns 1000 Ml Iv Soln) 1,000 mls @ 75 mls/hr IV CONTINUOUS PRN PRN Reason: THIS MED IS NOT "PRN" Stop: 12/18/18 15:58 Last Admin: 11/18/18 18:10 Dose: 75 mls/hr Documented by: Ondansetron HCl (Zofran Inj/Pf 4 Mg/2 Ml Sdv) 4 mg IV Q4HP PRN PRN Reason: NAUSEA Stop: 12/17/18 00:15 Last Admin: 11/18/18 18:08 Dose: 4 mg Documented by: Pharmacy Profile Note (Medication Communication Order) 1 each MC .NOTICE NR Stop: 12/16/18 17:59 Sodium Chloride (Saline Flush 2.5 Ml Monoject Prefil Syrin) 2.5 ml IV Q8 ALAYNA Stop: 12/16/18 17:59 Last Admin: 11/18/18 14:11 Dose: Not Given Documented by: - Allergies Allergies/Adverse Reactions: morphine Adverse Reaction (Severe, Verified 11/16/18 10:23) Hypotension oxycodone [From Percocet] Adverse Reaction (Intermediate, Verified 11/16/18 10:23) Nausea Hospital Course Hospital Course: Patient 63-year-old female, she came to the emergency room on 11/16/2018 for evaluation of persistent vomiting for the last 2 days. When she arrived in the emergency room the arterial blood gas that was done demonstrated severe hypoxemia the initial chest x-ray was not impressive pulmonary embolism was suspected as a potential etiology, CT angiogram of the chest could not be done because the serum creatinine was 2.8. A VQ scan was done in the emergency room that demonstrated normal perfusion. Because there was no plausable explanation for the hypoxemia, a mixed venous arterial blood was considered as a potential etiology, CT of the chest without contrast was obtained it demonstrated lower lobe airspace disease right more than left ,I suspected aspiration but the infiltrate is not severe enough to explain the severe hypoxemia, she was empirically started on IV antibiotic with Zosyn .CT scan of the abdomen and pelvis without contrast was obtained it demonstrated fluid throughout the GI tract but no definitive obstruction. Acute vascular event was suspected in this patient because she is a vasculopath, CTA of the abdomen could not be done be cause of the azotemia, she was vigorously hydrated with fluid with correction of the azotemia .CTA of the abdomen and pelvis was done today, it demonstrated 75 % proximal SMA stenosis and 50% celiac artery stenosis. The general surgeon suspect that the abdominal symptoms is most likely from acute ischemic event and that patient to be transferred to a facility with vascular surgery.When she pres ented she has sepsis like picture there was severe leukocytosis with a left shift, acute kidney injury felt to be prerenal in etiology. She was treated with IV antibiotic, fluid, the leukocytosis corrected Physical Exam Vital Signs: Temp Pulse Resp BP Pulse Ox 98.4 F 65 18 135/43 H 96 11/18/18 16:14 11/18/18 16:14 11/18/18 16:14 11/18/18 16:14 11/18/18 16:14 Intake & Output 11/17/18 11/18/18 11/19/18 06:59 06:59 06:59 Intake Total 4350 2657 1820 Output Total 250 1110 1000 Balance 4100 1547 820 Weight 72.5 kg 75.5 kg General appearance: PRESENT: no acute distress Head exam: PRESENT: atraumatic, normocephalic Eye exam: PRESENT: conjunctiva pink, EOMI, PERRLA Ear exam: PRESENT: normal external ear exam Mouth exam: PRESENT: moist, tongue midline Neck exam: ABSENT: carotid bruit, JVD, lymphadenopathy, thyromegaly Respiratory exam: PRESENT: clear to auscultation radha Cardiovascular exam: PRESENT: RRR, +S1, systolic murmur Pulses: PRESENT: normal dorsalis pedis pul Vascular exam: PRESENT: normal capillary refill GI/Abdominal exam: PRESENT: normal bowel sounds, soft Rectal exam: PRESENT: deferred Extremities exam: PRESENT: full ROM Neurological exam: PRESENT: alert, CN II-XII grossly intact. ABSENT: motor sensory deficit Psychiatric exam: PRESENT: appropriate affect, normal mood Skin exam: PRESENT: dry, intact, warm. ABSENT: cyanosis, rash Results Laboratory Results: 11/18/18 07:08 11/18/18 07:08 11/18/18 11/18/18 07:08 07:08 WBC 10.9 H RBC 3.57 L Hgb 11.1 L Hct 32.2 L MCV 90 MCH 31.0 MCHC 34.5 RDW 13.4 Plt Count 278 Seg Neutrophils % 74.1 Lymphocytes % 16.4 Monocytes % 8.2 Eosinophils % 0.8 Basophils % 0.5 Absolute Neutrophils 8.1 Absolute Lymphocytes 1.8 Absolute Monocytes 0.9 Absolute Eosinophils 0.1 Absolute Basophils 0.1 Sodium 138.6 Potassium 4.0 Chloride 111 H Carbon Dioxide 21 L Anion Gap 7 BUN 17 Creatinine 0.88 Est GFR ( Amer) > 60 Est GFR (Non-Af Amer) > 60 Glucose 82 Calcium 8.3 L Total Bilirubin 0.6 AST 40 H ALT 21 Alkaline Phosphatase 55 Total Protein 5.4 L Albumin 3.0 L 11/16/18 11:08 Catheterized Urine Urine Culture - Final NO GROWTH 2 DAYS 11/16/18 10:25 Troponin I < 0.012 Impressions: Abdomen/Pelvis CT 11/16/18 00:00 IMPRESSION: 1. Airspace disease in the right lower lobe, atelectasis versus pneumonia. 2. There is considerable fluid throughout the bowel. Correlate for enteritis. 3. Osseous findings as described. Chest CT 11/16/18 00:00 IMPRESSION: Mild lower lobe airspace disease, right more than left. Atelectasis versus pneumonia. There is fluid in the esophagus. The stomach is distended with fluid. There is fluid in proximal small bowel loops. Is there any concern for small bowel obstruction? Chest X-Ray 11/16/18 10:24 IMPRESSION: NO ACUTE RADIOGRAPHIC FINDING IN THE CHEST. Lung Scan-VQ NM 11/16/18 11:23 IMPRESSION: No pulmonary perfusion defect identified. 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
[2018-11-18 21:49] VITALS: BP 147/57
== END 2018-11-19 00:05 | disposition short-term general hospital (02) | DRG 871 ==
LOC: ER 10:08 → EH 14:43 → 3W 17:34
PROVIDERS: ADMIT Internal Medicine; ATTEND Internal Medicine
PROC: 5A09357 Assistance with Respiratory Ventilation, Less than 24 Consecutive Hours, Continuous Positive Airway Pressure (ICD-10-PCS; principal; 2018-11-16)
DX: A41.9 Sepsis, unspecified organism (principal); K55.039 Acute (reversible) ischemia of large intestine, extent unspecified; J96.01 Acute respiratory failure with hypoxia; J69.0 Pneumonitis due to inhalation of food and vomit; N17.9 Acute kidney failure, unspecified; I25.10 Atherosclerotic heart disease of native coronary artery without angina pectoris; E78.5 Hyperlipidemia, unspecified; I73.9 Peripheral vascular disease, unspecified; J44.9 Chronic obstructive pulmonary disease, unspecified; F32.9 Major depressive disorder, single episode, unspecified; F17.210 Nicotine dependence, cigarettes, uncomplicated; E86.0 Dehydration; Z79.899 Other long term (current) drug therapy; Z88.6 Allergy status to analgesic agent; Z95.820 Peripheral vascular angioplasty status with implants and grafts; Z79.02 Long term (current) use of antithrombotics/antiplatelets; Z79.891 Long term (current) use of opiate analgesic; Z95.5 Presence of coronary angioplasty implant and graft
CPT/HCPCS: 36415; 71045; 71250; 74174; 74176; 78580; 80053; 80307; 81001; 82803; 82962; 83605; 83735; 84100; 84484; 85025; 85027; 85379; 85610; 87040; 87086; 93005; 93010; 94640; 94660; 96361; 96365; 96372; 96375; 99291; 99406; A9540; J0696; J1170; J1650; J2405; J2543; J2765; J7030; J7050; J7620; Q9969

== ENCOUNTER → 2019-04-27 | Outpatient (CLI) | payer MEDICARE, OTHER ==
--- NOTE | 2019-04-27 12:32 | RADIOLOGY REPORT (SQ) ---
EXAM DESCRIPTION: U/S ABDOMEN COMPLETE W/DOPPLER COMPLETED DATE/TIME: 04/27/2019 8:36 am REASON FOR STUDY: EPIGASTRIC PAIN (R10.13) R10.13 EPIGASTRIC PAIN COMPARISON: None. TECHNIQUE: Dynamic and static grayscale images acquired of the abdomen and recorded on PACS. Additio nal selected color Doppler and spectral images recorded. Note: Study does not meet criteria for complete doppler/duplex scan LIMITATIONS: None. FINDINGS: PANCREAS: The head and body of the pancreas are of normal echogenicity. The tail is obsc ured by overlying bowel gas. LIVER: The liver measures 16.2 cm in length, within the upper limits of normal size. No masses. Ech otexture normal. LIVER VASCULATURE: Normal directional flow of the main portal vein and hepatic veins. GALLBLADDER: Prior cholecystectomy. ULTRASOUND-DETECTED ATKINSON'S SIGN: Negative. INTRAHEPATIC DUCTS AND COMMON DUCT: CBD measures 8.0 mm in a post cholecystectomy patient. The ntrah epatic ducts normal caliber. No filling defects. INFERIOR VENA CAVA: Normal flow. AORTA: Mild atherosclerosis involving the abdominal aorta. No aneurysm. RIGHT KIDNEY: The right kidney measures 11.3 cm in length, normal size. Normal echotexture. Extrar enal pelvis, normal anatomic variant. No hydronephrosis. No calcifications. LEFT KIDNEY: Normal size. Normal echogenicity. No solid or suspicious masses. No hydronephrosi s. No calcifications. SPLEEN: Normal size. No solid masses. PERITONEAL AND PLEURAL SPACES: No ascites or effusions. OTHER: No other significant finding. IMPRESSION: 1. Prior cholecystectomy. 2. The tail of the pancreas is obscured by overlying bowel gas. 3. Prior cholecystectomy. TECHNICAL DOCUMENTATION: JOB ID: [id number] [employer]- All Rights Reserved Reading location - IP/workstation name: [email or web address]
== END ==
LOC: RAD 07:47
PROVIDERS: ATTEND Internal Medicine
DX: R10.13 Epigastric pain (principal)
CPT/HCPCS: 76700; 93976

== ENCOUNTER → 2019-12-13 | Outpatient (CLI) | payer MEDICARE ==
--- NOTE | 2019-12-13 16:18 | RADIOLOGY REPORT (SQ) ---
EXAM DESCRIPTION: HIP LEFT AP/LATERAL IMAGES COMPLETED DATE/TIME: 12/13/2019 3:34 pm REASON FOR STUDY: PAIN IN LEFT HIP M25.552 PAIN IN LEFT HIP COMPARISON: None. NUMBER OF VIEWS: Two views. TECHNIQUE: AP pelvis and additional frog-leg view of the left hip. LIMITATIONS: None. FINDINGS: MINERALIZATION: Normal. LEFT HIP: No fracture or dislocation. No worrisome bone lesions. No contour deformity. No joint spa ce narrowing. Mild sclerosis with small osteophytes. RIGHT HIP: No fracture or dislocation. No worrisome bone lesions. Mild sclerosis with small osteoph ytes. PUBIS AND ISCHIUM: No fracture. PELVIS: No fracture. SACRUM: No fracture or dislocation. No worrisome bone lesions. LOWER LUMBAR SPINE: Surgical changes with hardware. SOFT TISSUES: No findings. OTHER: No other significant finding. IMPRESSION: MILD DEGENERATIVE CHANGES. NO ACUTE FINDINGS. TECHNICAL DOCUMENTATION: JOB ID: [id number] 2010 [employer] All Rights Reserved Reading location - IP/workstation name: [email or web address]
== END ==
LOC: OD 15:20
PROVIDERS: ATTEND Internal Medicine
DX: M25.78 Osteophyte, vertebrae (principal); M25.552 Pain in left hip

== ENCOUNTER → 2019-12-13 | Outpatient (CLI) | payer MEDICARE ==
--- NOTE | 2019-12-13 14:48 | RADIOLOGY REPORT (SQ) ---
EXAM DESCRIPTION: VENOUS UNILATERAL LOWER IMAGES COMPLETED DATE/TIME: 12/13/2019 2:39 pm REASON FOR STUDY: LLE SWELLING R22.42 LOCALIZED SWELLING, MASS AND LUMP, LEFT LOWER LIMB COMPARISON: None. TECHNIQUE: Dynamic and static vargas scale and color images acquired of the left leg venous system. Se lected spectral images acquired with additional compression and augmentation maneuvers. The contralat eral common femoral vein and saphenofemoral junction were also imaged. Images stored on PACS. LIMITATIONS: None. FINDINGS: LEFT COMMON FEMORAL: Normal phasicity, compression and augmentation. No visualized echogenic material on g ray scale. No defects on color images. FEMORAL: Normal compression and augmentation. No visualized echogenic material on vargas scale. No defe cts on color images. POPLITEAL: Normal compression, augmentation. No visualized echogenic material on vargas scale. No defec ts on color images. CALF VESSELS: Normal compression, augmentation. No visualized echogenic material on vargas scale. No de fects on color images. GSV and SSV: Normal compression, augmentation. No visualized echogenic material on vargas scale. No def ects on color images. ANY DEEP VENOUS INSUFFICIENCY: Not evaluated. ANY EVIDENCE OF POPLITEAL CYST: No. OTHER: No other significant finding. RIGHT COMMON FEMORAL VEIN AND SAPHENOFEMORAL JUNCTION: Normal phasicity, compression and augmentation. No visualized echogenic material on vargas scale. No de fects on color images. IMPRESSION: NO EVIDENCE OF DVT OR SVT IN THE LEFT LEG. TECHNICAL DOCUMENTATION: JOB ID: [id number] 2010 [employer]- All Rights Reserved Reading location - IP/workstation name: [email or web address]
== END ==
LOC: SP 12:31
PROVIDERS: ATTEND Internal Medicine
DX: R22.42 Localized swelling, mass and lump, left lower limb (principal)
CPT/HCPCS: 93971

== ENCOUNTER → 2020-01-19 | Outpatient (CLI) | payer MEDICARE ==
[2020-01-19 13:17] LABS: ANION GAP 9 (5-19); BLOOD UREA NITROGEN 13 mg/dL (7-20); CALCIUM 9.2 mg/dL (8.4-10.2); CARBON DIOXIDE 30 mmol/L (22-30); CHLORIDE 98 mmol/L (98-107); GLUCOSE 88 mg/dL (75-110); POTASSIUM 5.3 mmol/L (3.6-5.0)
== END ==
LOC: OD 11:40
PROVIDERS: ATTEND Surgery Vascular Surgery
DX: Z01.812 Encounter for preprocedural laboratory examination (principal); I10 Essential (primary) hypertension; I70.90 Unspecified atherosclerosis
CPT/HCPCS: 36415; 80048